=== PATIENT | female | born 1980 | race Caucasian/White ===

== ENCOUNTER → 2016-12-08 | Outpatient (REF) | payer OTHER ==
[~2016-12-08] MED LIST: KLON1TAB PO; LYRI75CA PO; OMEP20CA3 PO; SYNT75TA PO; ULTR50TA PO; WELL100T PO; XANA1TAB2 PO; ZOLOFT PO
== END ==
LOC: M LAB REF 09:28
PROVIDERS: ATTEND Physician Assistant
DX: J02.9 Acute pharyngitis, unspecified (principal)

== ENCOUNTER → 2017-03-20 | Outpatient (REF) | payer OTHER ==
[2017-03-20 14:33] LABS: FOLLICLE STIMULATING HORMONE 4.6 mIU/mL; LUTEINIZING HORMONE 3.5 mIU/mL
== END ==
LOC: M LAB REF 13:26
PROVIDERS: ATTEND Obstetrics & Gynecology
DX: N92.0 Excessive and frequent menstruation with regular cycle (principal)

== ENCOUNTER → 2017-03-25 | Outpatient (REF) | payer OTHER ==
[2017-03-25 18:16] LABS: BASO % 0.8 % (0.0-1.0); EOS # 0.1 K/mm3 (0.0-0.50); LARGE UNSTAINED CELL # 0.1 K/mm3 (0.0-0.4); LARGE UNSTAINED CELL % 2.1 % (0.0-4.0); LYMPH # 1.6 K/mm3 (1.5-4.5); LYMPH % 34.6 % (24.0-44.0); MEAN CORPUSCULAR HEMOGLOBIN 29.9 pg (27.0-33.0); MEAN CORPUSCULAR HGB CONC 33.8 g/dl (32.0-36.5); MEAN CORPUSCULAR VOLUME 88.3 fl (80.0-96.0); MONO # 0.2 K/mm3 (0.0-0.8); MONO % 4.8 % (0.0-5.0); NEUTROPHILS # 2.5 K/mm3 (1.8-7.7); NEUTROPHILS % 55.6 % (36.0-66.0); PLATELET COUNT, AUTOMATED 231 k/mm3 (150-450); RED CELL DISTRIBUTION WIDTH 12.8 % (11.5-14.5); WHITE BLOOD COUNT 4.6 K/mm3 (4.0-10.0)
== END ==
LOC: M LAB REF 17:15
PROVIDERS: ATTEND Obstetrics & Gynecology
DX: N92.0 Excessive and frequent menstruation with regular cycle (principal)

== ENCOUNTER → 2017-03-28 | Outpatient (CLI) | payer OTHER ==
[2017-03-28 19:48] LABS: ALBUMIN/GLOBULIN RATIO 1.33 (1.00-1.93); ALKALINE PHOSPHATASE 59 U/L (45-117); ALT/SGPT 24 U/L (12-78); ANION GAP 5 MEQ/L (8-16); AST/SGOT 12 U/L (15-37); BILIRUBIN,TOTAL 0.6 MG/DL (0.2-1.0); BLOOD UREA NITROGEN 9 MG/DL (7-18); CALCIUM LEVEL 8.9 MG/DL (8.5-10.1); CARBON DIOXIDE LEVEL 31 MEQ/L (21-32); CHLORIDE LEVEL 105 MEQ/L (98-107); CREATININE FOR GFR 0.93 MG/DL (0.55-1.02); FREE T4 1.05 NG/DL (0.76-1.46); GLOMERULAR FILTRATION RATE > 60.0 (>60); GLUCOSE, FASTING 70 MG/DL (70-105); PERCENT SATURATION 30.9 % (13.2-37.4); POTASSIUM SERUM 4.1 MEQ/L (3.5-5.1); SODIUM LEVEL 141 MEQ/L (136-145); TOTAL IRON BINDING CAPACITY 411 UG/DL (250-450)
[2017-03-28 20:58] LABS: MEAN CORPUSCULAR HEMOGLOBIN 30.5 pg (27.0-33.0); MEAN CORPUSCULAR HGB CONC 33.9 g/dl (32.0-36.5); MEAN CORPUSCULAR VOLUME 89.8 fl (80.0-96.0); WHITE BLOOD COUNT 3.9 K/mm3 (4.0-10.0)
[2017-03-28 22:06] LABS: BASOPHILS 2 % (0-4); EOSINOPHILS 1 % (0-5)
== END ==
LOC: M WUC 17:47
PROVIDERS: ATTEND Physician Assistant
DX: R53.1 Weakness (principal); R53.83 Other fatigue; J02.9 Acute pharyngitis, unspecified

== ENCOUNTER → 2017-05-19 | Outpatient (REF) | payer OTHER ==
[~2017-05-19] MED LIST changes: +LEVO112T2; +MONT10TA2
== END ==
LOC: M LAB REF 18:12
PROVIDERS: ATTEND Obstetrics & Gynecology
DX: R10.2 Pelvic and perineal pain (principal)

== ENCOUNTER 2017-07-18 11:39 | Emergency (ER) | payer OTHER ==
[~2017-07-18] VITALS: Ht 172.7 cm; Wt 74.5 kg
[~2017-07-18 11:39] MED LIST changes: -LEVO112T2; -MONT10TA2
[2017-07-18] MEDS ORDERED: MONT10TA2 (11:51)
[2017-07-18] MEDS ORDERED: LEVO112T2 (11:51)
[2017-07-18] MEDS ORDERED: ONDANSETRON 4MG/2ML VIAL (J2405) IV ONE (12:00)
[2017-07-18] MEDS ORDERED: MORPHINE 4 MG/ML 1ML SYRINGE IV ONE (12:00)
[2017-07-18] MEDS ORDERED: ISOVUE-370 76% 100ML VIAL (Q9967) As Ordered ONE (12:07)
[2017-07-18 13:39] VITALS: BP 128/87
--- NOTE | 2017-07-18 14:16 | REP ---
Clinical: Trauma. Technique: Axial contrast enhanced images from the lung bases to the pubic symphysis using 100 ml Isovue 370 intravenous contrast material with coronal and sagittal re-formations. Comparison: 01/11/2015. Findings: Lung bases are clear. Visualized heart and pericardium normal. No evidence for solid organ injury. Liver, spleen, pancreas, gallbladder, bilateral adrenal glands and kidneys are normal. The enteric system is without obstruction or obvious acute inflammatory process. Normal terminal ileum and appendix identified in the right lower quadrant. Pelvis demonstrates normal bladder and age-appropriate uterus/adnexa with IUD in satisfactory position. No significant pelvic fluid or ascites. No free air. Abdominal aorta and vasculature is normal and without evidence for injury. Musculoskeletal structures are intact. Impression: Normal contrast enhanced CT of the abdomen and pelvis. No evidence for acute pathology or trauma/injury. Signed by Vinicio Villa MD 07/18/2017 12:26 P
--- NOTE | 2017-07-18 14:16 | REP ---
Trauma. Technique: Axial contrast enhanced images from the thoracic inlet to the upper abdomen using 100 ml Isovue 370 intravenous contrast material with coronal and sagittal re-formations. Findings: The bilateral lung parson are well-aerated, symmetric, and clear. No consolidation/contusion, pleural effusion or pneumothorax. Tracheobronchial tree is patent. No adenopathy. Mediastinum demonstrates a normal thoracic aorta, pulmonary vasculature and heart/pericardium. No evidence for mediastinal injury. Surrounding musculoskeletal structures are intact and without evidence for trauma/injury. Impression: Normal contrast enhanced chest CT. No evidence for acute mediastinal or pleural parenchymal trauma/injury or pathology. Signed by Vinicio Villa MD 07/18/2017 12:31 P
--- NOTE | 2017-07-18 14:44 | REP ---
CT THORACIC SPINE WITHOUT CONTRAST: 07/18/2017. COMPARISON: x-ray 11/12 2014, chest x-ray 08/08/2016. CLINICAL HISTORY: Trauma. Back pain. TECHNIQUE: Axial thin-section images with coronal and sagittal reconstructions provided. FINDINGS: The coronal images demonstrate a dextroconvex curvature of the mid-thoracic spine. There is no exaggerated kyphosis on the sagittal reconstruction. Spinous processes, lamina, facets, transverse processes, posterior rib articulations are normal on both sides. No paraspinal hematomas. Lung parson show no evidence of pleural effusions or focal pleural thickening. The posterior ribs are unremarkable. There are small marginal osteophytes at several levels. There is no disc bulge herniation and no spinal or foraminal stenosis. No compression deformities. A few tiny osteophytes are seen which are normal for age. IMPRESSION: 1. No CT evidence of compression fracture, disc space narrowing or malalignment. The central canal is without significant stenosis and the posterior elements are intact. Posterior rib reticulations also intact. Lung parson visible are clear. No effusion or paraspinal abnormality. Signed by Juan Miguel Iglesias MD 07/18/2017 04:01 P
== END 2017-07-18 13:40 | disposition home or self-care (01) ==
LOC: M ED 11:39
DX: Z04.1 Encounter for examination and observation following transport accident (principal); S29.019A Strain of muscle and tendon of unspecified wall of thorax, initial encounter; V99.XXXA Unspecified transport accident, initial encounter; Y92.89 Other specified places as the place of occurrence of the external cause; Y93.89 Activity, other specified; Y99.8 Other external cause status; Z79.899 Other long term (current) drug therapy
CPT/HCPCS: 71260; 72128; 74177; 96374; 96375; 99282; J2405; Q9967

== ENCOUNTER 2017-09-22 08:27 | Outpatient (RCR) | payer SELFPAY ==
[~2017-09-22 08:27] MED LIST changes: +LEVO112T2; +MONT10TA2
== END 2017-10-02 ==
LOC: M OT 08:27
PROVIDERS: ATTEND Physical Medicine & Rehabilitation
DX: Z87.820 Personal history of traumatic brain injury (principal)

== ENCOUNTER → 2017-10-01 | Outpatient (REF) | payer MEDICAID, SELFPAY ==
[2017-10-01 20:41] LABS: FREE T4 2.03 NG/DL (0.76-1.46)
== END ==
LOC: M SFHCADAM 15:04
PROVIDERS: ATTEND Physician Assistant
DX: E03.9 Hypothyroidism, unspecified (principal); R51 Headache

== ENCOUNTER 2017-10-04 00:44 | Emergency (ER) | payer MEDICAID, OTHER, SELFPAY ==
[2017-10-04 00:49] VITALS: BP 139/90
== END 2017-10-04 01:50 | disposition home or self-care (01) ==
LOC: M ED 00:44
DX: Z60.9 Problem related to social environment, unspecified (principal); K21.9 Gastro-esophageal reflux disease without esophagitis; E03.9 Hypothyroidism, unspecified; J30.9 Allergic rhinitis, unspecified; Z79.899 Other long term (current) drug therapy

== ENCOUNTER → 2017-10-17 | Outpatient (CLI) | payer MEDICAID, OTHER ==
--- NOTE | 2017-10-17 18:44 | REP ---
ULTRASOUND LEFT BREAST: Ultrasound left breast performed. The patient complains of painful lumps between 12-o'clock and 3-o'clock in the left breast. At the 1-o'clock region, there is a hypoechoic nodule measuring 9 x 9 x 8 mm. At 2-o'clock there are two hypoechoic nodules measuring 8 x 5 x 6 mm and 6 x 5 x 6 mm. There is also a complex cyst 4 mm in diameter. At 3-o'clock there is dense fibroglandular tissue present. IMPRESSION: ACR 3 probably benign. In the upper outer quadrant of the left breast, there are three well-defined round hypoechoic nodules with smooth margins, maximum diameter of the largest nodule is 9 mm. These most likely represent fibroadenomas. The largest nodule is at 1-o'clock and there are two other smaller nodules at 2-o'clock. Recommend followup ultrasound in 6 months to ensure stability. BI-RADS/ACR category 3 mammogram. Probably benign findings. Initial short-term followup (usually 6 month) examination. The patient letter being requested is M3. Signed by Franck Bobby MD 10/20/2017 05:53 P
== END ==
LOC: M RAD 16:04
PROVIDERS: ATTEND Physician Assistant
DX: N63.0 Unspecified lump in unspecified breast (principal)

== ENCOUNTER → 2017-11-24 | Outpatient (CLI) | payer OTHER ==
[~2017-11-24] MED LIST changes: +GASTROGRAFIN SOLUTION 30ML (Q9963) As Ordered; +ISOVUE-370 76% 100ML VIAL (Q9967) As Ordered; -KLON1TAB PO; -LEVO112T2; -LYRI75CA PO; -MONT10TA2; -OMEP20CA3 PO; -SYNT75TA PO; -ULTR50TA PO; -WELL100T PO; -XANA1TAB2 PO; -ZOLOFT PO
== END ==
LOC: M RAD 10:00
DX: R59.0 Localized enlarged lymph nodes (principal); C50.919 Malignant neoplasm of unspecified site of unspecified female breast; Z87.820 Personal history of traumatic brain injury
CPT/HCPCS: Q9963

== ENCOUNTER → 2017-11-26 | Outpatient (REF) | payer OTHER ==
[2017-11-26 17:48] LABS: INR 0.99; PROTHROMBIN TIME 13.2 SECONDS (12.4-14.5)
== END ==
LOC: M LAB REF 17:01
DX: C50.412 Malignant neoplasm of upper-outer quadrant of left female breast (principal)

== ENCOUNTER → 2017-11-28 | Outpatient (CLI) | payer OTHER | LOC: M CARPUL 11:59 | DX: Z29.8 Encounter for other specified prophylactic measures (principal); C50.919 Malignant neoplasm of unspecified site of unspecified female breast ==

== ENCOUNTER 2017-12-19 13:12 | Day surgery (SDC) | payer OTHER ==
[2017-12-19] MEDS ORDERED: CEFAZOLIN SOD 1 GM in APPROPRIATE DILUENT 1 EA IV (13:45)
[2017-12-19 13:52] LABS: CONTROL LINE UCG INT CTR LINE PRESENT; URINE PREG TEST NEGATIVE (NEGATIVE)
[2017-12-19] MEDS: LR 1,000 ML IV (13:57)
[2017-12-19] MEDS ORDERED: BUPIVACAINE HCL 0.25% 30 ML VIAL As Ordered (14:05)
[2017-12-19] MEDS ORDERED: LIDOCAINE 1% SDV INJ 30 ML VIAL As Ordered (14:05)
[2017-12-19] MEDS ORDERED: HEPARIN SOD (PORCINE) 5000 UNITS/ML VIAL As Ordered (14:06)
[2017-12-19] MEDS ORDERED: PROPOFOL 200 MG/20 ML VIAL As Ordered ×3 (14:37→15:01)
[2017-12-19] MEDS ORDERED: MIDAZOLAM INJ 2 MG/2 ML VIAL (J2250) As Ordered (14:37)
[2017-12-19] MEDS ORDERED: fentaNYL 100 MCG/2 ML INJECTION (J3010) As Ordered (14:37)
[2017-12-19] MEDS ORDERED: PERCOCET 5MG/325MG TAB PO (15:30)
[2017-12-19] MEDS ORDERED: fentaNYL 100 MCG/2 ML INJECTION (J3010) IV (15:30)
[2017-12-19] MEDS ORDERED: LR 1,000 ML IV (15:30)
[2017-12-19] MEDS ORDERED: ONDANSETRON 4MG/2ML VIAL (J2405) IV (15:30)
== END 2017-12-19 16:01 | disposition home or self-care (01) ==
LOC: M SDC 16:01
DX: Z45.2 Encounter for adjustment and management of vascular access device (principal); C50.912 Malignant neoplasm of unspecified site of left female breast; E03.9 Hypothyroidism, unspecified; F32.9 Major depressive disorder, single episode, unspecified; F41.9 Anxiety disorder, unspecified; K21.9 Gastro-esophageal reflux disease without esophagitis; Z72.0 Tobacco use; Z79.899 Other long term (current) drug therapy; Z79.891 Long term (current) use of opiate analgesic
CPT/HCPCS: 36561

== ENCOUNTER → 2018-01-07 | Outpatient (CLI) | payer OTHER | LOC: M RAD 11:15 | DX: C50.912 Malignant neoplasm of unspecified site of left female breast (principal); C50.911 Malignant neoplasm of unspecified site of right female breast; R22.1 Localized swelling, mass and lump, neck | CPT/HCPCS: 76536 ==

== ENCOUNTER → 2018-01-12 | Outpatient (REF) | payer OTHER ==
[2018-01-12 14:36] LABS: FERRITIN 49 NG/ML (8-252); IRON (FE) 65 UG/DL (50-170); PERCENT SATURATION 17.6 % (13.2-45.0); TOTAL IRON BINDING CAPACITY 369 UG/DL (250-450)
== END ==
LOC: M LAB REF 13:46
DX: C50.919 Malignant neoplasm of unspecified site of unspecified female breast (principal)

== ENCOUNTER → 2018-02-23 | Outpatient (REF) | payer OTHER ==
[2018-02-23 14:13] LABS: FREE T4 0.87 NG/DL (0.76-1.46); THYROID STIMULATING HORMONE 0.953 uIU/ML (0.358-3.740)
== END ==
LOC: M LAB REF 13:14
DX: E07.9 Disorder of thyroid, unspecified (principal)
CPT/HCPCS: 84443

== ENCOUNTER → 2018-02-24 | Outpatient (CLI) | payer OTHER | LOC: M ONCR 09:16 | DX: C50.912 Malignant neoplasm of unspecified site of left female breast (principal) | CPT/HCPCS: 99201 ==

== ENCOUNTER → 2018-03-09 | Outpatient (CLI) | payer OTHER | LOC: M RAD 14:43 | DX: M79.89 Other specified soft tissue disorders (principal) | CPT/HCPCS: 93971 ==

== ENCOUNTER → 2018-06-01 | Outpatient (CLI) | payer OTHER | LOC: M ONCR 11:17 | DX: C50.412 Malignant neoplasm of upper-outer quadrant of left female breast (principal) | CPT/HCPCS: 99211 ==

== ENCOUNTER → 2018-06-02 | Outpatient (RCR) | payer OTHER | LOC: M PT 10:34 | DX: Z51.89 Encounter for other specified aftercare (principal); C50.912 Malignant neoplasm of unspecified site of left female breast | CPT/HCPCS: 97163 ==

== ENCOUNTER 2018-06-05 11:00 | Outpatient (RCR) | payer OTHER | END 2018-07-03 | LOC: M ONCR 11:00 | DX: C50.412 Malignant neoplasm of upper-outer quadrant of left female breast (principal) | CPT/HCPCS: 77300 ==

== ENCOUNTER → 2018-06-08 | Outpatient (REF) | payer OTHER ==
[2018-06-08 13:45] LABS: FERRITIN 6 NG/ML (8-252); IRON (FE) 17 UG/DL (50-170); TOTAL IRON BINDING CAPACITY 427 UG/DL (250-450)
== END ==
LOC: M LAB REF 13:14
DX: C50.412 Malignant neoplasm of upper-outer quadrant of left female breast (principal)
CPT/HCPCS: 83550

== ENCOUNTER 2018-07-03 12:29 | Emergency (ER) | payer OTHER | END 2018-07-03 14:11 | disposition home or self-care (01) | LOC: M ED 12:29 | DX: R60.0 Localized edema (principal); C50.919 Malignant neoplasm of unspecified site of unspecified female breast; E03.9 Hypothyroidism, unspecified; Z98.890 Other specified postprocedural states; Z87.891 Personal history of nicotine dependence; Z79.890 Hormone replacement therapy; Z79.899 Other long term (current) drug therapy | CPT/HCPCS: 99283 ==

== ENCOUNTER 2018-07-07 10:18 | Outpatient (RCR) | payer OTHER | END 2018-08-02 | LOC: M ONCR 10:18 | DX: C50.412 Malignant neoplasm of upper-outer quadrant of left female breast (principal) | CPT/HCPCS: 77300 ==

== ENCOUNTER → 2018-07-09 | Outpatient (CLI) | payer OTHER ==
[~2018-07-09] MED LIST changes: -GASTROGRAFIN SOLUTION 30ML (Q9963) As Ordered
== END ==
LOC: M RAD 13:43
DX: R06.02 Shortness of breath (principal); R51 Headache; R42 Dizziness and giddiness; C50.919 Malignant neoplasm of unspecified site of unspecified female breast
CPT/HCPCS: Q9967

== ENCOUNTER → 2018-07-14 | Outpatient (CLI) | payer OTHER | LOC: M CARPUL 10:48 | DX: C50.919 Malignant neoplasm of unspecified site of unspecified female breast (principal); R60.1 Generalized edema | CPT/HCPCS: 93306 ==

== ENCOUNTER → 2018-07-15 | Outpatient (CLI) | payer OTHER | LOC: M PAIN 09:00 | DX: M79.2 Neuralgia and neuritis, unspecified (principal); M79.642 Pain in left hand; M79.641 Pain in right hand; G89.29 Other chronic pain; R60.9 Edema, unspecified; Z98.890 Other specified postprocedural states; M54.2 Cervicalgia; M79.1 Myalgia; F32.9 Major depressive disorder, single episode, unspecified; F41.9 Anxiety disorder, unspecified; K21.9 Gastro-esophageal reflux disease without esophagitis; E03.9 Hypothyroidism, unspecified; G47.00 Insomnia, unspecified; Z79.899 Other long term (current) drug therapy; Z90.13 Acquired absence of bilateral breasts and nipples; Z85.3 Personal history of malignant neoplasm of breast; Z92.3 Personal history of irradiation; Z87.891 Personal history of nicotine dependence; Z87.820 Personal history of traumatic brain injury; Z86.69 Personal history of other diseases of the nervous system and sense organs | CPT/HCPCS: G0463 ==

== ENCOUNTER → 2018-07-29 | Outpatient (REF) | payer OTHER ==
[2018-07-29 18:16] LABS: ERYTHROCYTE SEDIMENTATION RATE 15 mm/hr (0-20)
[2018-07-29 18:55] LABS: FREE T4 0.41 NG/DL (0.76-1.46); RHEUMATOID FACTOR QUANT < 10.0 IU/ML (<15.0); TOTAL PROTEIN 6.3 GM/DL (6.4-8.2)
[2018-07-29 20:59] LABS: ESTIMATED AVERAGE GLUCOSE 97 MG/DL (60-110)
[2018-07-29 22:01] LABS: FOLATE 8.3 NG/ML
[2018-07-30 11:32] LABS: ALBUMIN % 58.7 % (55.8-66.1); ALPHA-1-GLOBULIN % 4.8 % (2.9-4.9); ALPHA-2-GLOBULINS 0.74 GM/DL (0.42-0.99); ALPHA-2-GLOBULINS % 11.7 % (7.1-11.8); BETA-1-GLOBULINS 0.42 GM/DL (0.28-0.60); BETA-1-GLOBULINS % 6.7 % (4.7-7.2); BETA-2-GLOBULINS % 4.7 % (3.2-6.5); GAMMA GLOBULIN % 13.4 % (11.1-18.8); GAMMA GLOBULINS 0.84 GM/DL (0.65-1.58)
== END ==
LOC: M LABNEURO 13:41
DX: E11.9 Type 2 diabetes mellitus without complications (principal); E07.9 Disorder of thyroid, unspecified; R20.0 Anesthesia of skin; E53.8 Deficiency of other specified B group vitamins

== ENCOUNTER 2018-07-31 10:46 | Emergency (ER) | payer OTHER ==
[2018-07-31 11:12] LABS: BASO % 0.1 % (0.0-1.0); EOS # 0.1 10^3/uL (0.0-0.50); HEMATOCRIT 39.4 % (36.0-47.0); HEMOGLOBIN 12.2 g/dl (12.0-15.5); IMMATURE GRANULOCYTE % 0.4 % (0-3.0); LYMPH % 2.6 % (24.0-44.0); MEAN CORPUSCULAR HEMOGLOBIN 25.5 pg (27.0-33.0); MEAN CORPUSCULAR VOLUME 82.3 fl (80.0-96.0); MONO # 0.7 10^3/uL (0.0-0.8); MONO % 10.1 % (0.0-5.0); NEUTROPHILS % 85.8 % (36.0-66.0); PLATELET COUNT, AUTOMATED 187 10^3/uL (150-450); RED BLOOD COUNT 4.79 10^6/uL (4.00-5.40); RED CELL DISTRIBUTION WIDTH 19.2 % (11.5-14.5)
[2018-07-31] MEDS: NS 1,000 ML IV ×2 (11:13→13:35)
[2018-07-31] MEDS: MORPHINE 4 MG/ML 1ML VIAL/SYRINGE (J2270) IV ×2 (11:16→12:43)
[2018-07-31] MEDS: ONDANSETRON 4MG/2ML VIAL (J2405) IV (11:16)
[2018-07-31 11:32] LABS: INR 0.88
[2018-07-31] MEDS: PERCOCET 5MG/325MG TAB PO (11:48)
[2018-07-31 11:51] LABS: ALBUMIN 3.7 GM/DL (3.2-5.2); ALBUMIN/GLOBULIN RATIO 1.16 (1.00-1.93); ALKALINE PHOSPHATASE 90 U/L (45-117); ALT/SGPT 17 U/L (12-78); ANION GAP 6 MEQ/L (8-16); AST/SGOT 18 U/L (7-37); BILIRUBIN,DIRECT 0.1 MG/DL (0.0-0.2); BILIRUBIN,TOTAL 0.3 MG/DL (0.2-1.0); BLOOD UREA NITROGEN 12 MG/DL (7-18); CALCIUM LEVEL 9.2 MG/DL (8.5-10.1); CARBON DIOXIDE LEVEL 29 MEQ/L (21-32); CHLORIDE LEVEL 107 MEQ/L (98-107); CPK CREATINE PHOSPHOKINASE 95 U/L (26-192); CREATININE FOR GFR 0.72 MG/DL (0.55-1.30); GLOMERULAR FILTRATION RATE > 60.0 (>60); GLUCOSE, FASTING 102 MG/DL (70-100); LIPASE 46 U/L (73-393); MB/CK RELATIVE INDEX 1.37 (< OR =4); NT-PRO BNP 118 PG/ML (<125); POTASSIUM SERUM 4.1 MEQ/L (3.5-5.1); SODIUM LEVEL 142 MEQ/L (136-145); TOTAL PROTEIN 6.9 GM/DL (6.4-8.2); TROPONIN I < 0.02 NG/ML (< 0.10)
[2018-07-31 12:06] LABS: LYMPH # 0.2 10^3/uL (1.5-4.5); POSITIVE DIFF POS FLAG
[2018-07-31] MEDS ORDERED: ISOVUE-370 76% 100ML VIAL (Q9967) As Ordered (12:22)
[2018-07-31] MEDS: KETOROLAC 30 MG/ML VIAL (J1885) IV (12:45)
[2018-07-31] MEDS: SUCRALFATE SUSP 1GM/10ML UD PO (13:25)
[2018-07-31] MEDS: GI COCKTAIL 50ML BTL(HYOSCYAMINE/MAALOX/LIDOCAINE VISCOUS)(1:3:1) PO (15:29)
== END 2018-07-31 17:38 | disposition home or self-care (01) ==
LOC: M ED 10:46
DX: R07.9 Chest pain, unspecified (principal); R94.31 Abnormal electrocardiogram [ECG] [EKG]; C50.912 Malignant neoplasm of unspecified site of left female breast; K21.9 Gastro-esophageal reflux disease without esophagitis; E07.9 Disorder of thyroid, unspecified; F17.200 Nicotine dependence, unspecified, uncomplicated; Z90.13 Acquired absence of bilateral breasts and nipples; Z98.890 Other specified postprocedural states; Z79.890 Hormone replacement therapy; Z79.899 Other long term (current) drug therapy
CPT/HCPCS: J2270

== ENCOUNTER 2018-08-25 23:18 | Emergency (ER) | payer OTHER ==
[2018-08-26] MEDS: NORCO, ANEXSIA 5/325MG TABLET (HYDROcodone/ACETAMINOPHEN) PO (00:22)
[2018-08-26 00:35] LABS: BASO % 0.6 % (0.0-1.0); EOS # 0.2 10^3/uL (0.0-0.50); EOS % 3.1 % (0.0-3.0); HEMATOCRIT 39.9 % (36.0-47.0); HEMOGLOBIN 12.7 g/dl (12.0-15.5); IMMATURE GRANULOCYTE % 0.3 % (0-3.0); LYMPH # 0.9 10^3/uL (1.5-4.5); LYMPH % 12.8 % (24.0-44.0); MEAN CORPUSCULAR HEMOGLOBIN 26.1 pg (27.0-33.0); MEAN CORPUSCULAR HGB CONC 31.8 g/dl (32.0-36.5); MEAN CORPUSCULAR VOLUME 82.1 fl (80.0-96.0); MONO # 0.6 10^3/uL (0.0-0.8); NEUTROPHILS # 5.4 10^3/uL (1.8-7.7); NEUTROPHILS % 75.2 % (36.0-66.0); PLATELET COUNT, AUTOMATED 198 10^3/uL (150-450); RED BLOOD COUNT 4.86 10^6/uL (4.00-5.40); WHITE BLOOD COUNT 7.2 10^3/uL (4.0-10.0)
[2018-08-26 00:49] LABS: APPEARANCE, URINE CLEAR (CLEAR); BACTERIA, URINE AUTO NEGATIVE (NEGATIVE); BILIRUBIN, URINE AUTO NEGATIVE (NEGATIVE); BLOOD, URINE BLOOD NEGATIVE (NEGATIVE); COLOR, URINE YELLOW (YELLOW); GLUCOSE, URINE (UA) AUTO NEGATIVE (NEGATIVE); KETONE, URINE AUTO NEGATIVE (NEGATIVE); LEUKOCYTE ESTERASE, URINE AUTO NEGATIVE (NEGATIVE); MUCUS, URINE SMALL (NEGATIVE); NITRITE, URINE AUTO NEGATIVE (NEGATIVE); PROTEIN, URINE AUTO NEGATIVE (NEGATIVE); RBC, URINE AUTO 1 /HPF (0-3); SPECIFIC GRAVITY URINE AUTO 1.014 (1.002-1.035); SQUAMOUS EPITHELIAL CELL UR AU 3 /HPF (0-6); UROBILINOGEN, URINE AUTO 0.2 mg/dL (0.0-2.0); WBC, URINE AUTO 3 /HPF (0-3)
[2018-08-26 00:56] LABS: ANION GAP 9 MEQ/L (8-16); BLOOD UREA NITROGEN 13 MG/DL (7-18); CALCIUM LEVEL 8.7 MG/DL (8.5-10.1); CARBON DIOXIDE LEVEL 27 MEQ/L (21-32); CHLORIDE LEVEL 101 MEQ/L (98-107); CREATININE FOR GFR 0.81 MG/DL (0.55-1.30); GLOMERULAR FILTRATION RATE > 60.0 (>60); GLUCOSE, FASTING 93 MG/DL (70-100); POTASSIUM SERUM 4.2 MEQ/L (3.5-5.1); SODIUM LEVEL 137 MEQ/L (136-145)
[2018-08-26] MEDS: NORCO 5/325MG TABLET (BULK FOR ED) PO (01:19)
== END 2018-08-26 01:27 | disposition home or self-care (01) ==
LOC: M ED 23:18
DX: R59.1 Generalized enlarged lymph nodes (principal); Z92.3 Personal history of irradiation; K21.9 Gastro-esophageal reflux disease without esophagitis; Z85.3 Personal history of malignant neoplasm of breast; Z79.899 Other long term (current) drug therapy
CPT/HCPCS: 80048

== ENCOUNTER 2018-09-02 08:20 | Emergency (ER) | payer OTHER ==
[2018-09-02] MEDS: NS 1,000 ML IV (09:04)
[2018-09-02 09:17] LABS: KETONE, URINE AUTO RFX NEGATIVE (NEGATIVE); LEUKOCYTE ESTERASE UR AUTO RFX NEGATIVE (NEGATIVE); MUCUS, URINE RFX SMALL (NEGATIVE); NITRITE, URINE AUTO RFX NEGATIVE (NEGATIVE); RBC, URINE AUTO RFX 0 /HPF (0-3); SPECIFIC GRAVITY UR AUTO RFX 1.023 (1.002-1.035); SQUAM EPITHELIAL CELL UR AURFX 3 /HPF (0-6); WBC, URINE AUTO RFX 0 /HPF (0-3)
[2018-09-02 09:18] LABS: BASO % 0.9 % (0.0-1.0); EOS # 0.2 10^3/uL (0.0-0.50); EOS % 6.5 % (0.0-3.0); HEMATOCRIT 35.1 % (36.0-47.0); HEMOGLOBIN 11.3 g/dl (12.0-15.5); IMMATURE GRANULOCYTE % 0.3 % (0-3.0); LYMPH # 0.9 10^3/uL (1.5-4.5); LYMPH % 26.9 % (24.0-44.0); MEAN CORPUSCULAR HGB CONC 32.2 g/dl (32.0-36.5); MEAN CORPUSCULAR VOLUME 80.9 fl (80.0-96.0); MONO # 0.5 10^3/uL (0.0-0.8); MONO % 13.3 % (0.0-5.0); NEUTROPHILS # 1.8 10^3/uL (1.8-7.7); NEUTROPHILS % 52.1 % (36.0-66.0); PLATELET COUNT, AUTOMATED 284 10^3/uL (150-450); RED BLOOD COUNT 4.34 10^6/uL (4.00-5.40); RED CELL DISTRIBUTION WIDTH 17.2 % (11.5-14.5); WHITE BLOOD COUNT 3.4 10^3/uL (4.0-10.0)
[2018-09-02 09:39] LABS: ANION GAP 5 MEQ/L (8-16); BLOOD UREA NITROGEN 14 MG/DL (7-18); C REACTIVE PROTEIN QUANTITATIV 2.45 MG/DL (0.00-0.30); CALCIUM LEVEL 8.9 MG/DL (8.5-10.1); CARBON DIOXIDE LEVEL 29 MEQ/L (21-32); CHLORIDE LEVEL 104 MEQ/L (98-107); CREATININE FOR GFR 0.62 MG/DL (0.55-1.30); GLOMERULAR FILTRATION RATE > 60.0 (>60); GLUCOSE, FASTING 81 MG/DL (70-100); POTASSIUM SERUM 4.1 MEQ/L (3.5-5.1); SODIUM LEVEL 138 MEQ/L (136-145)
[2018-09-02 09:52] LABS: ERYTHROCYTE SEDIMENTATION RATE 56 mm/hr (0-20)
[2018-09-02 10:34] LABS: CK-MB VALUE MASS < 1.0 NG/ML (<3.6); CPK CREATINE PHOSPHOKINASE 31 U/L (26-192); MB/CK RELATIVE INDEX 3.23 (< OR =4); NT-PRO BNP 57 PG/ML (<125); TROPONIN I < 0.02 NG/ML (< 0.10)
[2018-09-02 10:46] LABS: D-DIMER QUANT 828.4 ng/ml (<500)
[2018-09-02] MEDS ORDERED: ISOVUE-370 76% 100ML VIAL (Q9967) As Ordered (11:06)
[2018-09-02 11:24] LABS: INFLUENZA A AMPLIFICATION NEGATIVE (NEGATIVE); INFLUENZA B AMPLIFICATION NEGATIVE (NEGATIVE); RSV AMPLIFICATION NEGATIVE (NEGATIVE)
[2018-09-02] MEDS: PERCOCET 5MG/325MG TAB PO (11:56)
== END 2018-09-02 12:35 | disposition home or self-care (01) ==
LOC: M ED 08:20
DX: R06.02 Shortness of breath (principal); R59.0 Localized enlarged lymph nodes; R94.31 Abnormal electrocardiogram [ECG] [EKG]; E03.9 Hypothyroidism, unspecified; F41.9 Anxiety disorder, unspecified; K21.9 Gastro-esophageal reflux disease without esophagitis; Z85.3 Personal history of malignant neoplasm of breast; Z98.890 Other specified postprocedural states; Z92.3 Personal history of irradiation; Z79.890 Hormone replacement therapy; Z79.899 Other long term (current) drug therapy
CPT/HCPCS: Q9967

== ENCOUNTER → 2018-09-02 | Outpatient (CLI) | payer OTHER | LOC: M ONCR 14:03 | DX: C50.412 Malignant neoplasm of upper-outer quadrant of left female breast (principal) | CPT/HCPCS: 99211 ==

== ENCOUNTER 2018-10-20 15:23 | Emergency (ER) | payer OTHER ==
[2018-10-20] MEDS: ACETAMINOPHEN TAB 650MG DOSE (2X325MG) PO (17:55)
== END 2018-10-20 18:15 | disposition left against medical advice (07) ==
LOC: M ED 15:23
DX: N64.59 Other signs and symptoms in breast (principal); R06.00 Dyspnea, unspecified; F41.9 Anxiety disorder, unspecified; Z85.3 Personal history of malignant neoplasm of breast; Z87.820 Personal history of traumatic brain injury; Z79.899 Other long term (current) drug therapy
CPT/HCPCS: 99284

== ENCOUNTER → 2018-10-20 | Outpatient (CLI) | payer OTHER ==
[~2018-10-20] MED LIST changes: +ALLE10TA2 PO; +AMBI10TA PO; +BUPR-289; +CLON1TAB8 PO; +CVS20TAB PO; +DULO1CAP3; +FERR1TAB8 PO; +FURO20TA2 PO; -ISOVUE-370 76% 100ML VIAL (Q9967) As Ordered; +KLON1TAB PO; +LASI20TA PO; +LEVO112T2 PO; +LYRI75CA PO; +MAGN400T2; +METHACHOLINE KIT (J7674) INH ONE; +MONT10TA2 PO; +MORP15TA2 PO; +NORCOTAB PO; +OMEP20CA3 PO; +PERC5TAB12 PO; +PROC10TA4 PO; +SUCR1SS PO; +SYNT75TA PO; +ULTR50TA PO; +VYVA1CAP PO; +VYVA20CA PO; +WELL100T PO; +XANA1TAB2 PO; +ZOLOFT PO
--- NOTE | 2018-10-20 15:13 | PFTRPT ---
Height: 68.00 Inches Weight: 168.00 Lbs BSA: 1.90 Diagnosis: R06.02 DATE OF PROCEDURE: 10/20/2018 ORDERING PROVIDER: Dr. Gordon INTERPRETATION: Study of excellent technical quality. Under protocol, methacholine was administered. At a dose of 2.5 mg or 13.875 CDUs, a 45% decline in the FEV1 was noted. PC of 0.52 is significant. Flow rates did return to baseline post bronchodilator administration. IMPRESSION: Positive methacholine challenge study. MTDD
== END ==
LOC: M CARPUL 12:30
PROVIDERS: ATTEND Internal Medicine Pulmonary Disease
DX: R06.02 Shortness of breath (principal)
CPT/HCPCS: 94070; 95070; J7674

== ENCOUNTER 2018-10-22 12:16 | Emergency (ER) | payer OTHER ==
[~2018-10-22] VITALS: Ht 172.7 cm; Wt 74.5 kg
[~2018-10-22 12:16] MED LIST changes: -CVS20TAB PO; -METHACHOLINE KIT (J7674) INH ONE
[2018-10-22 14:51] LABS: ABG BASE EXCESS 1.7 (-2.0-2.0); ABG HCO3 24.5 MEQ/L (22.0-26.0); ABG O2 SATURATION 97.3 % (95.0-99.0); ABG PARTIAL PRESSURE CO2 32.6 mmHg (35.0-45.0); ABG PARTIAL PRESSURE O2 88.9 mmHg (75.0-100.0); ABG TOTAL CO2 25.5 MEQ/L (22.0-29.0); ABG pH (ARTERIAL) 7.493 UNITS (7.350-7.450)
[2018-10-22 14:53] LABS: BASO % 0.4 % (0.0-1.0); EOS # 0.1 10^3/uL (0.0-0.50); EOS % 1.9 % (0.0-3.0); HEMATOCRIT 37.1 % (36.0-47.0); HEMOGLOBIN 12.4 g/dl (12.0-15.5); LYMPH # 0.8 10^3/uL (1.5-4.5); LYMPH % 17.3 % (24.0-44.0); MEAN CORPUSCULAR HEMOGLOBIN 28.5 pg (27.0-33.0); MEAN CORPUSCULAR HGB CONC 33.4 g/dl (32.0-36.5); MEAN CORPUSCULAR VOLUME 85.3 fl (80.0-96.0); MONO # 0.5 10^3/uL (0.0-0.8); MONO % 9.5 % (0.0-5.0); NEUTROPHILS # 3.3 10^3/uL (1.8-7.7); NEUTROPHILS % 70.5 % (36.0-66.0); PLATELET COUNT, AUTOMATED 239 10^3/uL (150-450); RED BLOOD COUNT 4.35 10^6/uL (4.00-5.40); WHITE BLOOD COUNT 4.7 10^3/uL (4.0-10.0)
[2018-10-22 15:05] LABS: INR 0.98; PARTIAL THROMBOPLASTIN TIME 27.3 SECONDS (25.4-37.6); PROTHROMBIN TIME 13.1 SECONDS (12.1-14.4)
[2018-10-22 15:14] LABS: HCG, SERUM QUALITATIVE NEGATIVE (NEGATIVE)
[2018-10-22] MEDS ORDERED: dexameTHASONE 20 MG/5 ML VIAL (J1100) IV ONE (15:15)
[2018-10-22 15:24] LABS: BLOOD UREA NITROGEN 13 MG/DL (7-18); CALCIUM LEVEL 8.2 MG/DL (8.5-10.1); CARBON DIOXIDE LEVEL 27 MEQ/L (21-32); CHLORIDE LEVEL 103 MEQ/L (98-107); CK-MB VALUE MASS < 1.0 NG/ML (<3.6); CPK CREATINE PHOSPHOKINASE 51 U/L (26-192); GLOMERULAR FILTRATION RATE > 60.0 (>60); GLUCOSE, FASTING 74 MG/DL (70-100); MB/CK RELATIVE INDEX 1.96 (< OR =4); NT-PRO BNP 83 PG/ML (<125); POTASSIUM SERUM 3.4 MEQ/L (3.5-5.1); SODIUM LEVEL 139 MEQ/L (136-145); TROPONIN I < 0.02 NG/ML (< 0.10)
[2018-10-22] MEDS ORDERED: ISOVUE-370 76% 100ML VIAL (Q9967) As Ordered ONE (15:29)
--- NOTE | 2018-10-22 16:10 | REP ---
Chest two views HISTORY: Chest pain Comparison: 09/02/2018 The lungs are clear. The heart is normal in size. The pulmonary vasculature is normal in appearance. The bony structure is intact. IMPRESSION: No acute disease. Electronically Signed by Leo Peralta MD 10/22/2018 04:02 P
[2018-10-22] MEDS ORDERED: PERCOCET 5MG/325MG TAB PO ONE (16:15)
[2018-10-22 17:00] VITALS: BP 103/64
--- NOTE | 2018-10-22 18:08 | REP ---
REASON FOR EXAM: Persistent dyspnea. Multiple priors are reviewed. The latest 09/02/2018. CONTRAST: 75 mL Isovue-370. There is excellent visualization of the pulmonary arterial vasculature. There are no focal filling defects present that would be considered consistent with pulmonary emboli. The thoracic aorta is normal. There is no mediastinal or hilar adenopathy. There are pleural or pericardial effusions. The imaged upper abdomen is within normal limits. The imaged osseous structures are within normal limits. Evaluation of the lung parson show no new abnormal nodules, masses or opacities. The lung parson are stable. IMPRESSION:No significant change from 09/02/2018. No evidence of a pulmonary embolism. No evidence of acute disease. Electronically Signed by Cody Jones DO 10/23/2018 11:45 A
[2018-10-23] MEDS ORDERED: CVS20TAB PO (08:30)
--- NOTE | 2018-10-24 10:36 | ECGEPIP ---
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
== END 2018-10-22 17:26 | disposition home or self-care (01) ==
LOC: EDBD 12:16 → M ED 12:16
DX: J45.909 Unspecified asthma, uncomplicated (principal); I50.9 Heart failure, unspecified; Z79.899 Other long term (current) drug therapy
CPT/HCPCS: 36600; 71046; 71275; 80048; 82550; 82553; 82803; 83880; 84443; 84703; 85025; 85610; 85730; 93005; 93041; 94760; 96374; 99284; J1100; Q9967

== ENCOUNTER → 2018-10-30 | Outpatient (CLI) | payer OTHER ==
[~2018-10-30] MED LIST changes: +CVS20TAB PO; -LASI20TA PO; +LASI20TA3 PO
--- NOTE | 2018-10-30 10:58 | REP ---
Clinical: Left axillary tenderness with history of breast cancer. Technique: Real time guzmán scale and color evaluation using linear high frequency transducer. Findings: Directed ultrasound examination of the left axillary region at the area of maximal tenderness demonstrates normal musculature and subcutaneous tissues. No fluid collection, adenopathy, or mass lesion appreciated. Impression: Negative directed ultrasound examination. No obvious axillary abnormality by sonographic evaluation. Electronically Signed by Vinicio Villa MD 10/30/2018 10:50 A
== END ==
LOC: M RAD 09:51
PROVIDERS: ATTEND Internal Medicine Medical Oncology
DX: R06.02 Shortness of breath (principal); I50.30 Unspecified diastolic (congestive) heart failure; Z85.3 Personal history of malignant neoplasm of breast

== ENCOUNTER 2018-12-04 04:46 | Emergency (ER) | payer OTHER ==
[~2018-12-04] VITALS: Ht 172.7 cm; Wt 75.0 kg
[~2018-12-04 04:46] MED LIST changes: +OXYC1TAB23 PO
[2018-12-04] MEDS ORDERED: NS 1,000 ML IV ONE (06:00)
[2018-12-04] MEDS ORDERED: HYDROMORPHONE HCL 0.5 MG/ 0.5 ML SYRINGE (J1170 PER 1) IV ONE (06:00)
[2018-12-04] MEDS ORDERED: ISOVUE-370 76% 100ML VIAL (Q9967) As Ordered ONE (06:04)
[2018-12-04 06:31] LABS: BASO % 0.8 % (0.0-1.0); EOS # 0.1 10^3/uL (0.0-0.50); EOS % 3.6 % (0.0-3.0); HEMATOCRIT 36.9 % (36.0-47.0); HEMOGLOBIN 11.8 g/dl (12.0-15.5); LYMPH # 0.7 10^3/uL (1.5-4.5); MEAN CORPUSCULAR HEMOGLOBIN 28.8 pg (27.0-33.0); MONO # 0.4 10^3/uL (0.0-0.8); MONO % 11.9 % (0.0-5.0); NEUTROPHILS # 2.4 10^3/uL (1.8-7.7); NEUTROPHILS % 65.4 % (36.0-66.0); PLATELET COUNT, AUTOMATED 202 10^3/uL (150-450); WHITE BLOOD COUNT 3.6 10^3/uL (4.0-10.0)
[2018-12-04 06:58] LABS: BLOOD UREA NITROGEN 20 MG/DL (7-18); CALCIUM LEVEL 7.8 MG/DL (8.5-10.1); CARBON DIOXIDE LEVEL 27 MEQ/L (21-32); CHLORIDE LEVEL 106 MEQ/L (98-107); CREATININE FOR GFR 0.67 MG/DL (0.55-1.30); GLOMERULAR FILTRATION RATE > 60.0 (>60); GLUCOSE, FASTING 84 MG/DL (70-100); POTASSIUM SERUM 4.2 MEQ/L (3.5-5.1); SODIUM LEVEL 139 MEQ/L (136-145)
--- NOTE | 2018-12-04 07:41 | REPVR ---
EXAM: CT Chest With Contrast EXAM DATE/TIME: 12/04/2018 5:54 AM CLINICAL HISTORY: 37 years old, female; Pain; Chest wall pain; Prior surgery; Surgery date: 1-6 months; Surgery type: Breast; Additional info: Eval of l breast implant TECHNIQUE: Axial computed tomography images of the chest with intravenous contrast. All CT scans at this facility use at least one of these dose optimization techniques: automated exposure control; mA and/or kV adjustment per patient size (includes targeted exams where dose is matched to clinical indication); or iterative reconstruction. Coronal and sagittal reformatted images were created and reviewed. MIP reconstructed images were created and reviewed. CONTRAST: 75 ml of iso administered intravenously. COMPARISON: CT ANGIO CHEST 10/22/2018 3:26:50 PM FINDINGS: Lungs: Minor dependent atelectasis is present bilaterally. The lungs are otherwise clear. The central airways appear patent. Pleural space: Normal. No pneumothorax. No pleural effusion. Heart: Normal. No cardiomegaly. No pericardial effusion. Aorta: The thoracic aorta is nonaneurysmal. Lymph nodes: Unremarkable. No enlarged lymph nodes. Bones/joints: Unremarkable. No acute fracture. Soft tissues: There are again surgical clips in the left axilla with some scarring here. Bilateral breast implants are again present. There are low density and probably saline. They have a fairly symmetric appearance, and no significant new collection is evident about either. Stomach and bowel: A tiny right posterior tracheal diverticulum is again present. Upper abdomen: The visualized abdominal structures appear unremarkable. IMPRESSION: Fairly symmetric appearance of bilateral breast implants. These are probably saline. If they are silicone, however, may consider further evaluation with ultrasound or MRI. Electronically signed by: Pedro Pablo Martinez On 12/04/2018 07:41:25 AM
--- NOTE | 2018-12-04 07:49 | REPVR ---
EXAM: US Left Duplex Upper Extremity Veins, Limited EXAM DATE/TIME: 12/04/2018 6:42 AM CLINICAL HISTORY: 37 years old, female; Pain; Arn, upper; Left; Additional info: Swell pain x 2 weeks TECHNIQUE: Real-time Duplex ultrasound of the Left Upper Extremity with 2-D guzmán scale, color Doppler flow and spectral waveform analysis. Limited exam focused on the left upper extremity veins. COMPARISON: None provided. FINDINGS: Left deep veins: Axillary and brachial veins are patent throughout without thrombus. Normal Doppler waveforms. Normal compressibility and/or augmentation response. There is wall thickening of the left axillary vein proximally, with decreased luminal diameter. Visualized internal jugular and subclavian veins are patent. Left superficial veins: Unremarkable. Visualized cephalic and basilic veins are patent without thrombus. Soft tissues: Unremarkable. IMPRESSION: 1. No deep venous thrombus demonstrated in the left upper extremity. 2. Wall thickening of the left axillary vein proximally, with decreased luminal diameter. Findings could relate to scarring or chronic phlebitis in the setting of prior lymph node dissection in the region. Electronically signed by: Pedro Pablo Martinez On 12/04/2018 07:49:13 AM
[2018-12-04 08:38] VITALS: BP 116/62
[2018-12-04] MEDS ORDERED: PERCOCET 5MG/325MG TAB PO ONE (09:00)
--- NOTE | 2018-12-04 11:37 | ED PDOC ---
Post-Departure Follow-Up dr browning faxed formal report of ct chest for fu Lalo Zheng MD Dec 04, 2018 11:37
== END 2018-12-04 09:02 | disposition home or self-care (01) ==
LOC: M ED 04:46
DX: T85.9XXA Unspecified complication of internal prosthetic device, implant and graft, initial encounter (principal); Y76.2 Prosthetic and other implants, materials and accessory obstetric and gynecological devices associated with adverse incidents; Z85.3 Personal history of malignant neoplasm of breast; Z90.13 Acquired absence of bilateral breasts and nipples; Z86.79 Personal history of other diseases of the circulatory system; J45.909 Unspecified asthma, uncomplicated; Z79.899 Other long term (current) drug therapy
CPT/HCPCS: 71260; 80048; 82330; 83605; 85025; 87040; 93971; 96374; 99284; J1170; Q9967

== ENCOUNTER 2018-12-07 08:59 | Emergency (ER) | payer OTHER ==
[~2018-12-07] VITALS: Ht 172.7 cm; Wt 76.4 kg
[2018-12-07] MEDS ORDERED: IBUP-1022 PO (09:18)
[2018-12-07] MEDS ORDERED: VYVA40CA3 (09:18)
[2018-12-07] MEDS ORDERED: PERCOCET 5MG/325MG TAB PO ONE (09:45)
[2018-12-07 10:13] LABS: BASO % 1.3 % (0.0-1.0); EOS # 0.1 10^3/uL (0.0-0.50); EOS % 3.9 % (0.0-3.0); HEMATOCRIT 37.3 % (36.0-47.0); HEMOGLOBIN 12.3 g/dl (12.0-15.5); LYMPH # 0.6 10^3/uL (1.5-4.5); LYMPH % 17.8 % (24.0-44.0); MEAN CORPUSCULAR HEMOGLOBIN 28.7 pg (27.0-33.0); MEAN CORPUSCULAR VOLUME 86.9 fl (80.0-96.0); MONO # 0.3 10^3/uL (0.0-0.8); MONO % 8.7 % (0.0-5.0); NEUTROPHILS # 2.1 10^3/uL (1.8-7.7); PLATELET COUNT, AUTOMATED 230 10^3/uL (150-450); RED BLOOD COUNT 4.29 10^6/uL (4.00-5.40); WHITE BLOOD COUNT 3.1 10^3/uL (4.0-10.0)
[2018-12-07 10:41] LABS: ERYTHROCYTE SEDIMENTATION RATE 13 mm/hr (0-20)
[2018-12-07 10:47] LABS: BLOOD UREA NITROGEN 21 MG/DL (7-18); C REACTIVE PROTEIN QUANTITATIV < 0.30 MG/DL (0.00-0.30); CALCIUM LEVEL 8.3 MG/DL (8.5-10.1); CARBON DIOXIDE LEVEL 28 MEQ/L (21-32); CHLORIDE LEVEL 104 MEQ/L (98-107); CREATININE FOR GFR 0.77 MG/DL (0.55-1.30); GLOMERULAR FILTRATION RATE > 60.0 (>60); GLUCOSE, FASTING 69 MG/DL (70-100); HCG, SERUM QUANTITATIVE < 1.0 MIU/ML; POTASSIUM SERUM 4.1 MEQ/L (3.5-5.1); SODIUM LEVEL 138 MEQ/L (136-145)
[2018-12-07] MEDS ORDERED: ISOVUE-370 76% 100ML VIAL (Q9967) As Ordered ONE (11:03)
[2018-12-07] MEDS ORDERED: MORPHINE 2 MG/ML 1ML SYRINGE (J2270) IV ONE (11:45)
[2018-12-07] MEDS ORDERED: KETOROLAC 30 MG/ML VIAL (J1885) IV ONE (11:45)
[2018-12-07 12:15] VITALS: BP 118/71
--- NOTE | 2018-12-07 12:31 | REP ---
CT pulmonary angiogram: With IV contrast. History: Left chest wall and axillary pain. Status post mastectomy and tissue spinner open end bilaterally. Pericardial effusion. Comparison studies: Comparison study December 04, 2018. Contrast dose: 75 mL of Isovue [address] technique: Helical scanning is acquired and overlapping 1.5 mm and contiguous 3 mm axial images are reformatted. In addition, maximum intensity projection and multiplanar re-formation images are generated in sagittal and coronal imaging projections. CT pulmonary angiographic findings: There is good opacification of the pulmonary arterial tree. There is no CT evidence of pulmonary embolus. Thoracic aorta shows no evidence of aneurysm or dissection. The left vertebral artery is noted to take a direct aortic origin which is a normal variant. There is a granulomatous calcification in the right upper lobe anteriorly. No significant pulmonary nodule is appreciated. No infiltrate is observed. There is no evidence of pleural effusion on either side. No pericardial effusion is appreciated. The patient is status post mastectomy and bilateral subpectoral saline tissue expanders are noted in place as before. No abnormal fluid collection is seen in the chest wall on either side. There is some postoperative fibrosis with surgical clips in the left axillary soft tissues. No bony destructive lesion is seen. Impression: No CT evidence of pulmonary embolus. Granulomatous calcification right upper lobe. No pleural or pericardial effusion. Surgical clips and some postoperative edema or fibrosis in the left axilla. Status post bilateral mastectomy with bilateral breast augmentation tissue expanders in place. Electronically Signed by Charles Malone MD 12/07/2018 01:56 P
[2018-12-07] MEDS ORDERED: NORCOTAB PO (12:42)
[2019-01-04] MEDS ORDERED: OXYC1TAB23 PO (13:05)
== END 2018-12-07 12:56 | disposition home or self-care (01) ==
LOC: M ED 08:59
DX: G89.18 Other acute postprocedural pain (principal); M79.622 Pain in left upper arm; R07.89 Other chest pain; Z90.13 Acquired absence of bilateral breasts and nipples; Z85.3 Personal history of malignant neoplasm of breast; E03.9 Hypothyroidism, unspecified; D64.9 Anemia, unspecified; K21.9 Gastro-esophageal reflux disease without esophagitis; Z92.3 Personal history of irradiation; Z79.899 Other long term (current) drug therapy
CPT/HCPCS: 71275; 80048; 84702; 85025; 85379; 85652; 86140; 87040; 96374; 96375; 99284; J1885; J2270; Q9967

== ENCOUNTER 2018-12-29 17:35 | Emergency (ER) | payer OTHER ==
[~2018-12-29] VITALS: Ht 172.7 cm; Wt 75.0 kg
[~2018-12-29 17:35] MED LIST changes: -DULO1CAP3; +DULO1CAP3 PO; +IBUP-1022 PO; +VYVA40CA3 PO
[2018-12-29] MEDS ORDERED: TRAM50TA2 (17:43)
[2018-12-29] MEDS ORDERED: CIPR500T39 (17:43)
[2018-12-29] MEDS ORDERED: AMOX/K (17:43)
--- NOTE | 2018-12-29 18:52 | REPVR ---
EXAM: US Duplex Left Upper Extremity Veins, Limited EXAM DATE/TIME: 12/29/2018 6:29 PM CLINICAL HISTORY: 38 years old, female; Pain; Arn, upper; Left; Prior surgery; Surgery date: <1 month; Surgery type: Willian spacer for mastectomy; Additional info: Swelling TECHNIQUE: Real-time Duplex ultrasound of the Left Upper Extremity with 2-D guzmán scale, color Doppler flow and spectral waveform analysis. Limited exam focused on the left upper extremity veins. COMPARISON: US DUPLEX EXT UPPER VEINS UNILATE LEFT 12/04/2018 6:18 AM FINDINGS: Left deep veins: Normal compression and blood flow noted within the left internal jugular vein. Normal phasic flow noted within the proximal subclavian vein.Clot is noted within the axillary vein which is distended and noncompressible. Minimal blood flow was noted around the thrombus on color Doppler examination at the level of thrombosis. Nonocclusive thrombus extends into the basilic vein The brachial veins compressed normally. Left superficial veins: . Visualized cephalic vein is patent without thrombus. Soft tissues: Marked edema noted within the soft tissues of the left arm IMPRESSION: Deep vein thrombosis in the left upper extremity 2. Superficial thrombosis within the left basilic vein Electronically signed by: Milly Krishnan On 12/29/2018 18:52:46 PM
[2018-12-29 19:15] LABS: BASO % 0.8 % (0.0-1.0); EOS # 0.1 10^3/uL (0.0-0.50); EOS % 1.6 % (0.0-3.0); HEMATOCRIT 38.7 % (36.0-47.0); HEMOGLOBIN 12.5 g/dl (12.0-15.5); LYMPH # 0.6 10^3/uL (1.5-4.5); LYMPH % 16.2 % (24.0-44.0); MEAN CORPUSCULAR HEMOGLOBIN 28.2 pg (27.0-33.0); MEAN CORPUSCULAR HGB CONC 32.3 g/dl (32.0-36.5); MEAN CORPUSCULAR VOLUME 87.2 fl (80.0-96.0); MONO # 0.4 10^3/uL (0.0-0.8); MONO % 11.4 % (0.0-5.0); NEUTROPHILS # 2.6 10^3/uL (1.8-7.7); NEUTROPHILS % 69.7 % (36.0-66.0); PLATELET COUNT, AUTOMATED 290 10^3/uL (150-450); RED BLOOD COUNT 4.44 10^6/uL (4.00-5.40); WHITE BLOOD COUNT 3.8 10^3/uL (4.0-10.0)
[2018-12-29] MEDS ORDERED: GABAPENTIN 300 MG CAP PO ONE (19:15)
[2018-12-29] MEDS ORDERED: MORPHINE 4 MG/ML 1ML VIAL/SYRINGE (J2270) IV ONE (19:15)
[2018-12-29 19:24] LABS: INR 0.99; PROTHROMBIN TIME 13.2 SECONDS (12.1-14.4)
[2018-12-29 19:25] LABS: PARTIAL THROMBOPLASTIN TIME 28.1 SECONDS (25.4-37.6)
[2018-12-29 19:27] LABS: BLOOD UREA NITROGEN 10 MG/DL (7-18); C REACTIVE PROTEIN QUANTITATIV 1.16 MG/DL (0.00-0.30); CARBON DIOXIDE LEVEL 28 MEQ/L (21-32); CHLORIDE LEVEL 104 MEQ/L (98-107); CREATININE FOR GFR 0.73 MG/DL (0.55-1.30); GLOMERULAR FILTRATION RATE > 60.0 (>58); GLUCOSE, FASTING 93 MG/DL (70-100); NT-PRO BNP 259 PG/ML (<125); POTASSIUM SERUM 4.2 MEQ/L (3.5-5.1); SODIUM LEVEL 137 MEQ/L (136-145)
[2018-12-29] MEDS ORDERED: PERCOCET 5MG/325MG TAB PO ONE (19:30)
[2018-12-29 19:32] LABS: ERYTHROCYTE SEDIMENTATION RATE 40 mm/hr (0-20)
[2018-12-29] MEDS ORDERED: ISOVUE-370 76% 100ML VIAL (Q9967) As Ordered ONE (19:36)
[2018-12-29 20:03] LABS: HCG, SERUM QUALITATIVE NEGATIVE (NEGATIVE)
[2018-12-29 20:09] LABS: CK-MB VALUE MASS < 1.0 NG/ML (<3.6); CPK CREATINE PHOSPHOKINASE 28 U/L (26-192); MB/CK RELATIVE INDEX 3.57 (< OR =4); TROPONIN I < 0.02 NG/ML (< 0.10)
--- NOTE | 2018-12-29 21:02 | REP ---
Clinical: Acute chest pain with shortness of breath and evidence for DVT. Technique: Axial contrast enhanced images from the thoracic inlet to the upper abdomen using 100 ml Isovue 370 intravenous contrast material with coronal and sagittal re-formations. Findings: Satisfactory enhancement of the pulmonary vasculature is achieved and no filling defects are identified to suggest pulmonary embolus. Thoracic aorta is normal caliber without aneurysm or dissection. Heart and pericardium are normal. Bilateral lung parson demonstrate mild basilar ground-glass opacities suggesting possible bronchitis without discrete focal consolidation or significant atelectasis. Prevascular and bilateral hilar adenopathy is noted and possibly reactive. No nodule or mass lesion. No pleural effusion/reaction. No pneumothorax. Osseous structures are intact. Evidence for bilateral mammoplasty. Impression: 1. No evidence for pulmonary embolus. 2. Mild bibasilar ground-glass opacities raise the possibility of bronchitis. 3. Mediastinal/prevascular and bilateral hilar lymph nodes are nonspecific and possibly reactive. 4. No focal consolidation or effusion. Electronically Signed by Vinicio Villa MD 12/29/2018 08:52 P
[2018-12-29] MEDS ORDERED: PERC5TAB12 PO (21:38)
[2018-12-29] MEDS ORDERED: LASI20TA3 PO (21:38)
[2018-12-29] MEDS ORDERED: ELIQ5TAB PO (21:38)
[2018-12-29 21:45] VITALS: BP 123/72
[2018-12-29] MEDS ORDERED: OXYCODONE/APAP 5MG/325MG(BULK FOR ED) 1 TABLET PO ONE (21:45)
[2018-12-29] MEDS ORDERED: APIXABAN 5 MG TAB (ELIQUIS) PO ONE (21:45)
--- NOTE | 2018-12-30 20:44 | ECGEPIP ---
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
[2019-01-04] MEDS ORDERED: OXYC1TAB23 PO (13:05)
[2019-01-07] MEDS ORDERED: HYDR-3716 PO (10:47)
[2019-01-07] MEDS ORDERED: PREG50CA PO (10:47)
== END 2018-12-29 22:06 | disposition home or self-care (01) ==
LOC: M ED 17:35
DX: I82.622 Acute embolism and thrombosis of deep veins of left upper extremity (principal); I82.612 Acute embolism and thrombosis of superficial veins of left upper extremity; I97.2 Postmastectomy lymphedema syndrome; Z85.3 Personal history of malignant neoplasm of breast; Z90.13 Acquired absence of bilateral breasts and nipples; E03.9 Hypothyroidism, unspecified; Z87.820 Personal history of traumatic brain injury; Z79.899 Other long term (current) drug therapy
CPT/HCPCS: 71275; 80048; 81001; 82550; 82553; 83605; 83880; 84703; 85025; 85610; 85652; 85730; 86140; 87086; 93005; 93041; 93971; 99284; Q9967

== ENCOUNTER → 2019-01-06 | Outpatient (CLI) | payer OTHER ==
[~2019-01-06] MED LIST changes: +AMOX/K; +CIPR500T39; +DULO1CAP3; -DULO1CAP3 PO; +ELIQ5TAB PO; +HYDR-3716 PO; +PREG50CA PO; +TRAM50TA2; +VYVA40CA3; -VYVA40CA3 PO
--- NOTE | 2019-01-07 08:47 | REP ---
PET/CT: History: Restaging metastatic breast cancer. Upper outer quadrant left breast. Status post bilateral mastectomy with reconstruction. Status post chemotherapy completed March of 2018 and radiation therapy completed July of 2018. Most recently status post positive punch biopsy of suspicious skin lesions in the left upper breast positive for metastatic malignancy. Recent left upper extremity documented venous thrombosis. Comparisons: No comparison PET/CT. Comparison is made with most recent chest CT study dated December 29, 2018. TECHNIQUE: 68 minutes following the intravenous injection of a 9.27 mCi dose of F-18 FDG, three-dimensional PET scintigraphy is acquired from the skull base to the proximal thighs. Triplanar noncontrast CT scanning is acquired through the same anatomic range for attenuation correction, and image registration with scan parameters optimized to minimize radiation exposure to the patient. PET scintigraphy and CT datasets were fused and displayed on a workstation with multiplanar and projection display capability. PET/CT Findings: Unfortunately, the PET scintigraphy shows extensive hypermetabolic disease. First, there is ill-defined but extensive intramuscular extrathoracic chest wall hypermetabolic uptake about the left superior chest and subclavicular soft tissues extending in the left axilla and along the left lateral border of the trapezius muscle. This is difficult to evaluate. Some of this may be related to the patient's left upper extremity DVT which was recently diagnosed and associated inflammation. However, much of this hypermetabolic activity is quite avid with maximum standard uptake value up to 9.94. There is associated soft tissue fullness. There is some linear hypermetabolic uptake in the dermal region of the left superior breast and left medial breast. Maximum standard uptake value in this dermal uptake pattern is in the region of 5.92. In addition, there is delia hypermetabolic uptake in the mediastinum and aorticopulmonary window region lymph nodes with maximum standard uptake value here of 11.3. There is hypermetabolic pretracheal, subcarinal, and right hilar and left hilar adenopathy as well. There are small slightly hypermetabolic lymph nodes in the right subclavian region. No hypermetabolic pulmonary parenchymal uptake. There is hypermetabolic retroperitoneal adenopathy with the most avid left periaortic lymph node demonstrating a maximum standard uptake value of 7.86. There is hypermetabolic left iliac adenopathy with small lymph nodes. Maximum SUV value 4.3. There is skeletal muscle uptake which is most likely muscle tension related in several locations including the right forearm and hand and periarticular region of the right shoulder. No abnormal skeletal uptake. No other abnormal hypermetabolic uptake is seen. Impression: Extensive metastatic disease pattern as described above involving left chest wall, left superior breast dermal tissue, bilateral hilar and mediastinal and subclavian adenopathy and retroperitoneal and left iliac lymphadenopathy. Electronically Signed by Charles Malone MD 01/07/2019 09:33 A
== END ==
LOC: M PLARAD 13:32
PROVIDERS: ATTEND Nurse Practitioner Family
DX: C50.412 Malignant neoplasm of upper-outer quadrant of left female breast (principal); Z90.13 Acquired absence of bilateral breasts and nipples; C77.1 Secondary and unspecified malignant neoplasm of intrathoracic lymph nodes; C77.5 Secondary and unspecified malignant neoplasm of intrapelvic lymph nodes; C77.2 Secondary and unspecified malignant neoplasm of intra-abdominal lymph nodes
CPT/HCPCS: 78815; A9552

== ENCOUNTER → 2019-01-08 | Outpatient (CLI) | payer OTHER ==
[~2019-01-08] MED LIST changes: +BUPR15TASR PO; -DULO1CAP3; +DULO1CAP3 PO; -VYVA40CA3; +VYVA40CA3 PO
[2019-01-08 16:13] LABS: PERCENT SATURATION 14.9 % (13.2-45.0)
[2019-01-08 16:19] LABS: FOLATE 9.2 NG/ML (>5.4)
== END ==
LOC: M LAB 13:27
PROVIDERS: ATTEND Internal Medicine Hematology & Oncology
DX: R53.83 Other fatigue (principal); D50.9 Iron deficiency anemia, unspecified

== ENCOUNTER → 2019-01-08 | Outpatient (CLI) | payer OTHER ==
[~2019-01-08] MED LIST changes: +PROHANCE 279.3MG/ML 15ML VIAL (A9576) As Ordered ONE
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
== END ==
LOC: M RAD 12:29
PROVIDERS: ATTEND Nurse Practitioner Family
DX: R51 Headache (principal); C50.919 Malignant neoplasm of unspecified site of unspecified female breast
CPT/HCPCS: 70553; A9576

== ENCOUNTER 2019-01-13 13:00 | Inpatient (IN) | payer OTHER ==
[~2019-01-13] VITALS: Ht 172.7 cm; Wt 80.0 kg
[~2019-01-13 13:00] MED LIST changes: -ALLE10TA2 PO; -BUPR15TASR PO; -CVS20TAB PO; +HYDR-3715 PO; +LORA-753 PO; -NORCOTAB PO; +OMEP20TA9 PO; -PROHANCE 279.3MG/ML 15ML VIAL (A9576) As Ordered ONE
[2019-01-13] MEDS ORDERED: LIDOCAINE 5% (LIDODERM) PATCH TD ONE (13:45)
[2019-01-13] MEDS ORDERED: MORPHINE 4 MG/ML 1ML VIAL/SYRINGE (J2270) IV ONE ×3 (13:45→19:45)
[2019-01-13 14:27] LABS: BASO % 0.7 % (0.0-1.0); EOS # 0.1 10^3/uL (0.0-0.50); EOS % 3.2 % (0.0-3.0); HEMATOCRIT 37.6 % (36.0-47.0); HEMOGLOBIN 12.2 g/dl (12.0-15.5); LYMPH # 0.7 10^3/uL (1.5-4.5); LYMPH % 16.9 % (24.0-44.0); MEAN CORPUSCULAR HEMOGLOBIN 28.4 pg (27.0-33.0); MEAN CORPUSCULAR HGB CONC 32.4 g/dl (32.0-36.5); MEAN CORPUSCULAR VOLUME 87.4 fl (80.0-96.0); MONO # 0.4 10^3/uL (0.0-0.8); NEUTROPHILS # 2.8 10^3/uL (1.8-7.7); PLATELET COUNT, AUTOMATED 319 10^3/uL (150-450)
[2019-01-13 14:40] LABS: INR 1.09; PROTHROMBIN TIME 14.2 SECONDS (12.1-14.4)
[2019-01-13 14:41] LABS: PARTIAL THROMBOPLASTIN TIME 35.1 SECONDS (25.4-37.6)
[2019-01-13 14:51] LABS: BLOOD UREA NITROGEN 13 MG/DL (7-18); CALCIUM LEVEL 8.2 MG/DL (8.5-10.1); CARBON DIOXIDE LEVEL 30 MEQ/L (21-32); CHLORIDE LEVEL 100 MEQ/L (98-107); CREATININE FOR GFR 0.66 MG/DL (0.55-1.30); GLOMERULAR FILTRATION RATE > 60.0 (>58); GLUCOSE, FASTING 76 MG/DL (70-100); POTASSIUM SERUM 4.1 MEQ/L (3.5-5.1); SODIUM LEVEL 136 MEQ/L (136-145)
--- NOTE | 2019-01-13 15:39 | REP ---
LEFT UPPER EXTREMITY DOPPLER VENOUS ULTRASOUND: 01/13/2019. Comparison: 12/29/2018. Clinical history. Prior diagnosis DVT and superficial thrombophlebitis left upper extremity, but symptoms worsening. On anticoagulation, but not improving. Findings: The exam was limited as the technologist states the patient told her she could not move the arm away from her chest due to pain. The jugular and subclavian veins are filled on the color images and without gross evidence of thrombus. There is respiratory variation and augmented flow in these vessels. The axillary vein shows thrombus representing occlusive DVT. The basilic vein also shows some thrombus representing superficial thrombophlebitis. Brachial veins show no thrombus. The cephalic vein also is without thrombus. Impression: 1. There is a segment of the axillary vein with thrombus filling its lumen causing occlusive DVT. There is also superficial thrombophlebitis noted in portions of the basilic vein. 2. The jugular, subclavian and brachial veins show no thrombus and the cephalic vein shows no evidence for superficial thrombophlebitis. Electronically Signed by Juan Miguel Iglesias MD 01/13/2019 09:57 P
[2019-01-13] MEDS ORDERED: HEPARIN DRIP 25,000 UNITS in APPROPRIATE DILUENT 1 EA IV SCH (16:37)
[2019-01-13] MEDS ORDERED: ISOVUE-370 76% 100ML VIAL (Q9967) As Ordered ONE (16:43)
[2019-01-13] MEDS ORDERED: HEPARIN SOD (PORCINE) 5000 UNITS/ML VIAL IV ONE (16:45)
[2019-01-13] MEDS ORDERED: ELIQ5TAB PO (17:04)
[2019-01-13] MEDS ORDERED: BUPR15TASR PO (17:04)
[2019-01-13] MEDS ORDERED: LASI20TA3 PO (17:04)
--- NOTE | 2019-01-13 19:22 | REPVR ---
EXAM: CT Angiography Chest With Contrast EXAM DATE/TIME: 01/13/2019 6:28 PM CLINICAL HISTORY: 38 years old, female; Pain; Chest pain; Prior surgery; Surgery date: 6+ months; Additional info: SOB dvt TECHNIQUE: Axial computed tomographic angiography images of the chest with intravenous contrast using CT angiography protocol. All CT scans at this facility use at least one of these dose optimization techniques: automated exposure control; mA and/or kV adjustment per patient size (includes targeted exams where dose is matched to clinical indication); or iterative reconstruction. Coronal and sagittal reformatted images were created and reviewed. MIP reconstructed images were created and reviewed. CONTRAST: Contrast Material: 75 ml of ISO 370; Contrast Route: IV COMPARISON: CT ANGIO CHEST 12/29/2018 8:21 PM FINDINGS: Pulmonary arteries: No pulmonary embolus. Aorta: No aortic dissection or aneurysm. Lungs: Normal. No consolidation. No masses. Pleural space: Small left pleural effusion. Heart: Normal. No cardiomegaly. No pericardial effusion. Lymph nodes: Superior mediastinal lymphadenopathy measures up to 11 millimeters in the AP window, 10 millimeters in the precarinal region and associated with bilateral hilar lymphadenopathy, left greater than right. Bones/joints: Unremarkable. No acute fracture. Soft tissues: Status post bilateral breast implants. Skin thickening overlies the left breast. Clinical correlation to exclude infection or inflammatory breast carcinoma suggested. Subcutaneous inflammatory changes demonstrated in the soft tissues of the left hemithorax as well as the visualized portion of the left arm. IMPRESSION: 1. Small left pleural effusion. Bibasilar atelectasis. 2. Status post bilateral breast implants. Skin thickening overlies the left breast. Clinical correlation to exclude infection or inflammatory breast carcinoma suggested. 3. No aortic dissection or aneurysm. 4. Superior mediastinal and bilateral hilar lymphadenopathy. Although possibly postinflammatory or neoplastic etiologies not excluded. 5. No pulmonary embolus. 6. Subcutaneous inflammatory changes demonstrated in the soft tissues of the left hemithorax as well as the visualized portion of the left arm. Electronically signed by: Stephen Mckinney On 01/13/2019 19:22:16 PM
[2019-01-13] MEDS ORDERED: **NOTE PATIENT COMMENT** MISC XX SCH (21:00)
--- NOTE | 2019-01-13 21:43 | HPEPDOC ---
General Date of Admission Chief Complaint The patient is a 38-year-old female admitted with a reason for visit of Arm Pain/Swelling. Home Medications Scheduled (Vyvanse) 40 Mg Cap, 40 MG PO DAILY, (Reported) Apixaban Base (Eliquis) 5 Mg Tab, 5 MG PO BID, (Reported) Bupropion HCl (Bupropion HCl Sr) 150 Mg Tab, 150 MG PO DAILY, (Reported) CHECKED WITH PHARMACY - IT IS ONLY DAILY Clonazepam (Clonazepam) 1 Mg Tab, 1 MG PO QHS, (Reported) Duloxetine Hcl (Duloxetine HCl) 60 Mg Cap, 60 MG PO QHS, (Reported) Furosemide (Lasix) 20 Mg Tab, 20 MG PO DAILY, (Reported) Levothyroxine Sodium (Synthroid) 112 Mcg Tab, 112 MCG PO DAILY, (Reported) Omeprazole (Cvs Omeprazole) 20 Mg Tab, 20 MG PO DAILY, (Reported) Zolpidem Tartrate (Ambien) 10 Mg Tab, 10 MG PO QHS, (Reported) Allergies Coded Allergies: No Known Drug Allergy (Verified Allergy, Unknown, 10/20/18) Vital Signs Vital Signs Date Time Temp Pulse Resp B/P (MAP) Pulse Ox O2 Delivery O2 Flow Rate FiO2 01/13/19 20:00 82 18 120/75 (90) 100 Room Air 01/13/19 13:06 97.8 Laboratory Data Labs 24H Laboratory Tests 2 01/13/19 14:14: Immature Granulocyte % (Auto) 0.2, White Blood Count 4.0, Red Blood Count 4.30, Hemoglobin 12.2, Hematocrit 37.6, Mean Corpuscular Volume 87.4, Mean Corpuscular Hemoglobin 28.4, Mean Corpuscular Hemoglobin Concent 32.4, Red Cell Distribution Width 13.1, Platelet Count 319, Neutrophils (%) (Auto) 69.0H, Lymphocytes (%) (Auto) 16.9L, Monocytes (%) (Auto) 10.0H, Eosinophils (%) (Auto) 3.2H, Basophils (%) (Auto) 0.7, Neutrophils # (Auto) 2.8, Lymphocytes # (Auto) 0.7L, Monocytes # (Auto) 0.4, Eosinophils # (Auto) 0.1, Basophils # (Auto) 0.0, Nucleated Red Blood Cells % (auto) 0.0, Prothrombin Time 14.2, Prothromb Time International Ratio 1.09, Activated Partial Thromboplast Time 35.1, Anion Gap 6L, Glomerular Filtration Rate > 60.0, Blood Urea Nitrogen 13, Creatinine 0.66, Sodium Level 136, Potassium Level 4.1, Chloride Level 100, Carbon Dioxide Level 30, Calcium Level 8.2L CBC/BMP Laboratory Tests 01/13/19 14:14 Red Blood Count 4.30, Mean Corpuscular Volume 87.4, Mean Corpuscular Hemoglobin 28.4, Mean Corpuscular Hemoglobin Concent 32.4, Red Cell Distribution Width 13.1, Neutrophils (%) (Auto) 69.0 H, Lymphocytes (%) (Auto) 16.9 L, Monocytes (%) (Auto) 10.0 H, Eosinophils (%) (Auto) 3.2 H, Basophils (%) (Auto) 0.7, Neutrophils # (Auto) 2.8, Lymphocytes # (Auto) 0.7 L, Monocytes # (Auto) 0.4, Eosinophils # (Auto) 0.1, Basophils # (Auto) 0.0, Calcium Level 8.2 L Date of Service The patient was seen on 01/14/19. NOTE NAME: HIRAL GONZALEZ DATE OF : 1980 BUSINESS NUMBER: [id number] AGE: 38 SEX: F REPORT #: [id number] ROOM: ED TECHNOLOGIST: KATIA DOCTOR: WANDA MARQUIS SLIP COVER SEAMSTRESS Ordered for Date&Time: 01/13/19 1637 cc: [~ rep ct ivnm] Service Date&Time: 01/13/19 1828 EXAMINATION REQUESTED: CT ANGIO CHEST REASON FOR PATIENT VISIT: ARM PAIN/SWELLING REASON FOR EXAMINATION: SOB DVT EXAM: CT Angiography Chest With Contrast EXAM DATE/TIME: 01/13/2019 6:28 PM CLINICAL HISTORY: 38 years old, female; Pain; Chest pain; Prior surgery; Surgery date: 6+ months; Additional info: SOB dvt TECHNIQUE: Axial computed tomographic angiography images of the chest with intravenous contrast using CT angiography protocol. All CT scans at this facility use at least one of these dose optimization techniques: automated exposure control; mA and/or kV adjustment per patient size (includes targeted exams where dose is matched to clinical indication); or iterative reconstruction. Coronal and sagittal reformatted images were created and reviewed. MIP reconstructed images were created and reviewed. CONTRAST: Contrast Material: 75 ml of ISO 370; Contrast Route: IV COMPARISON: CT ANGIO CHEST 12/29/2018 8:21 PM FINDINGS: Pulmonary arteries: No pulmonary embolus. Aorta: No aortic dissection or aneurysm. Lungs: Normal. No consolidation. No masses. Pleural space: Small left pleural effusion. Heart: Normal. No cardiomegaly. No pericardial effusion. Lymph nodes: Superior mediastinal lymphadenopathy measures up to 11 millimeters in the AP window, 10 millimeters in the precarinal region and associated with bilateral hilar lymphadenopathy, left greater than right. Bones/joints: Unremarkable. No acute fracture. Soft tissues: Status post bilateral breast implants. Skin thickening overlies the left breast. Clinical correlation to exclude infection or inflammatory breast carcinoma suggested. Subcutaneous inflammatory changes demonstrated in the soft tissues of the left hemithorax as well as the visualized portion of the left arm. IMPRESSION: 1. Small left pleural effusion. Bibasilar atelectasis. 2. Status post bilateral breast implants. Skin thickening overlies the left breast. Clinical correlation to exclude infection or inflammatory breast carcinoma suggested. 3. No aortic dissection or aneurysm. 4. Superior mediastinal and bilateral hilar lymphadenopathy. Although possibly postinflammatory or neoplastic etiologies not excluded. 5. No pulmonary embolus. 6. Subcutaneous inflammatory changes demonstrated in the soft tissues of the left hemithorax as well as the visualized portion of the left arm. Electronically signed by: Stephen Serrano On 01/13/2019 19:22:16 PM DD: STEPHEN SERRANO MD 01/13/19 182 DT: MARIAMA 01/13/191921 DS: CEZAR 01/13/191921 Yann Rasmussen MD Jan 13, 2019 21:43
[2019-01-13] MEDS ORDERED: MOM 30ML SUSPENSION UDC PO PRN (21:45)
[2019-01-13] MEDS ORDERED: MORPHINE 4 MG/ML 1ML VIAL/SYRINGE (J2270) IV PRN (21:45)
[2019-01-13] MEDS ORDERED: BISACODYL 10 MG SUPP PR PRN (21:45)
[2019-01-13] MEDS: DULoxetine 30 MG CAP (CYMBALTA) PO SCH (23:09)
[2019-01-13] MEDS: clonazePAM 1 MG TAB PO SCH (23:09)
[2019-01-13] MEDS: zolPIDEM TARTRATE 5 MG TAB PO SCH (23:10)
[2019-01-13] MEDS: MORPHINE 4 MG/ML 1ML VIAL/SYRINGE (J2270) IV PRN (23:18)
[2019-01-14 00:45] VITALS: BP 126/78
[2019-01-14] MEDS ORDERED: HEPARIN SOD (PORCINE) 5000 UNITS/ML VIAL IV PRN (01:00)
[2019-01-14] MEDS: NORCO, ANEXSIA 5/325MG TABLET (HYDROcodone/ACETAMINOPHEN) PO PRN ×6 (01:28→22:28)
[2019-01-14] MEDS: MORPHINE 4 MG/ML 1ML VIAL/SYRINGE (J2270) IV PRN ×4 (01:41→11:16)
[2019-01-14 01:59] LABS: HEMATOCRIT 35.2 % (36.0-47.0); HEMOGLOBIN 11.5 g/dl (12.0-15.5); MEAN CORPUSCULAR HEMOGLOBIN 28.5 pg (27.0-33.0); MEAN CORPUSCULAR HGB CONC 32.7 g/dl (32.0-36.5); MEAN CORPUSCULAR VOLUME 87.1 fl (80.0-96.0); PLATELET COUNT, AUTOMATED 269 10^3/uL (150-450); RED BLOOD COUNT 4.04 10^6/uL (4.00-5.40); WHITE BLOOD COUNT 3.1 10^3/uL (4.0-10.0)
[2019-01-14] MEDS ORDERED: **NOTE PATIENT COMMENT** MISC XX ONE (02:00)
[2019-01-14] MEDS: HEPARIN DRIP 25,000 UNITS in APPROPRIATE DILUENT 1 EA IV SCH ×2 (02:12→23:11)
[2019-01-14] MEDS: LEVOTHYROXINE 112MCG TABLET (0.112MG) PO SCH (05:09)
[2019-01-14 06:20] VITALS: BP 143/58
[2019-01-14 07:45] VITALS: BP 118/76
[2019-01-14] MEDS: PANTOPRAZOLE 40MG INJ (PROTONIX) (C9113) IV SCH ×2 (08:20→20:50)
[2019-01-14] MEDS: buPROPion **SR TABLET** (ZYBAN) 150MG PO SCH (08:21)
[2019-01-14] MEDS: SENOKOT S TAB PO SCH ×2 (08:21→20:51)
[2019-01-14] MEDS: DOCUSATE SODIUM 100 MG CAP PO SCH ×2 (08:21→20:51)
[2019-01-14 09:00] VITALS: BP 122/75
[2019-01-14] MEDS ORDERED: NS 1,000 ML IV SCH (11:32)
[2019-01-14] MEDS ORDERED: diphenhydrAMINE INJ 50MG/ML VIAL (J1200) IV PRN (11:45)
[2019-01-14] MEDS ORDERED: NALBUPHINE HCL 10 MG/ML AMP (J2300) IV PRN (11:45)
[2019-01-14] MEDS ORDERED: ONDANSETRON 4MG/2ML VIAL (J2405) IV PRN (11:45)
[2019-01-14] MEDS ORDERED: MORPHINE 1MG/ML IN 0.9% NACL 100ML IV BAG IV PRN ×3 (11:45)
[2019-01-14] MEDS ORDERED: EPIDURAL/PCA KEYS XX PRN (11:45)
[2019-01-14] MEDS ORDERED: NALOXONE INJ 0.4 MG/1 ML VIAL (J2310) IV PRN (11:45)
[2019-01-14 16:10] VITALS: BP 139/76
[2019-01-14] MEDS: LIDOCAINE 5% (LIDODERM) PATCH TD SCH (16:24)
[2019-01-14 20:00] VITALS: BP 130/78
[2019-01-14] MEDS: zolPIDEM TARTRATE 5 MG TAB PO SCH (20:50)
[2019-01-14] MEDS: DULoxetine 30 MG CAP (CYMBALTA) PO SCH (20:51)
[2019-01-14] MEDS: clonazePAM 1 MG TAB PO SCH (20:51)
[2019-01-14] MEDS: **NOTE PATIENT COMMENT** MISC XX SCH (20:52)
[2019-01-15 04:00] VITALS: BP 124/78
[2019-01-15] MEDS: NORCO, ANEXSIA 5/325MG TABLET (HYDROcodone/ACETAMINOPHEN) PO PRN ×4 (04:52→20:18)
[2019-01-15] MEDS: LEVOTHYROXINE 112MCG TABLET (0.112MG) PO SCH (05:45)
[2019-01-15] MEDS: buPROPion **SR TABLET** (ZYBAN) 150MG PO SCH (08:21)
[2019-01-15] MEDS: LIDOCAINE 5% (LIDODERM) PATCH TD SCH (08:21)
[2019-01-15] MEDS: PANTOPRAZOLE 40MG INJ (PROTONIX) (C9113) IV SCH ×2 (08:21→20:19)
[2019-01-15] MEDS: SENOKOT S TAB PO SCH ×2 (08:22→20:19)
[2019-01-15] MEDS: DOCUSATE SODIUM 100 MG CAP PO SCH ×2 (08:22→20:18)
[2019-01-15] MEDS ORDERED: ALTEPLASE RECOMBINANT 10 MG in APPROPRIATE DILUENT 1 EA IV ONE (12:30)
[2019-01-15] MEDS ORDERED: LIDOCAINE 2% MDV 20 ML VIAL As Ordered ONE (12:56)
[2019-01-15] MEDS ORDERED: ISOVUE-300 61% 50ML VIAL (Q9967) As Ordered ONE (12:57)
[2019-01-15] MEDS ORDERED: ALTEPLASE RECOMBINANT 25 MG in NS 225 ML IV SCH (13:00)
[2019-01-15] MEDS ORDERED: MIDAZOLAM INJ 2 MG/2 ML VIAL (J2250) As Ordered ONE (14:21)
[2019-01-15] MEDS ORDERED: fentaNYL 100 MCG/2 ML INJECTION (J3010) As Ordered ONE (14:21)
[2019-01-15 15:12] VITALS: BP 130/75
[2019-01-15 20:00] VITALS: BP 130/81
[2019-01-15] MEDS: DULoxetine 30 MG CAP (CYMBALTA) PO SCH (20:19)
[2019-01-15] MEDS: zolPIDEM TARTRATE 5 MG TAB PO SCH (20:19)
[2019-01-15] MEDS: **NOTE PATIENT COMMENT** MISC XX SCH (20:19)
[2019-01-15] MEDS: clonazePAM 1 MG TAB PO SCH (20:19)
[2019-01-15] MEDS ORDERED: HEPARIN DRIP 25,000 UNITS in APPROPRIATE DILUENT 1 EA IV SCH (21:45)
[2019-01-16] MEDS: NORCO, ANEXSIA 5/325MG TABLET (HYDROcodone/ACETAMINOPHEN) PO PRN ×6 (01:38→23:35)
[2019-01-16 06:00] VITALS: BP 135/85
[2019-01-16] MEDS: LEVOTHYROXINE 112MCG TABLET (0.112MG) PO SCH (06:02)
[2019-01-16] MEDS: PANTOPRAZOLE 40MG INJ (PROTONIX) (C9113) IV SCH ×2 (10:06→20:35)
[2019-01-16] MEDS: DOCUSATE SODIUM 100 MG CAP PO SCH ×2 (10:07→20:35)
[2019-01-16] MEDS: LIDOCAINE 5% (LIDODERM) PATCH TD SCH (10:07)
[2019-01-16] MEDS: buPROPion **SR TABLET** (ZYBAN) 150MG PO SCH (10:07)
[2019-01-16] MEDS: SENOKOT S TAB PO SCH ×2 (10:07→20:35)
[2019-01-16 14:00] VITALS: BP 147/96
[2019-01-16] MEDS: HEPARIN DRIP 25,000 UNITS in APPROPRIATE DILUENT 1 EA IV SCH (18:57)
[2019-01-16 20:00] VITALS: BP 143/87
[2019-01-16] MEDS: clonazePAM 1 MG TAB PO SCH (20:35)
[2019-01-16] MEDS: zolPIDEM TARTRATE 5 MG TAB PO SCH (20:35)
[2019-01-16] MEDS: DULoxetine 30 MG CAP (CYMBALTA) PO SCH (20:35)
[2019-01-16] MEDS: **NOTE PATIENT COMMENT** MISC XX SCH (20:36)
--- NOTE | 2019-01-16 22:35 | IPNPDOC ---
Subjective General Date/Time Seen The patient was seen on 01/16/19 at 22:35. Subject Chief Complaint/History The patient is a 38-year-old female admitted with a reason for visit of Dvt Of Axillary Vein,Acute Left,Hx Of Breast Cance. Current Medications Current Medications Current Medications Acetaminophen/ Hydrocodone Bitart (Gabbs, Anexsia 5/325) 2 tab Q4HP PRN PO PAIN Last administered on 01/16/19at 19:35; Start 01/14/19 at 01:00 Alteplase, Recombinant 25 mg/ Sodium Chloride 250 ml @ 10 mls/hr Q24H IV ; Start 01/15/19 at 13:00; Stop 01/16/19 at 22:33; Status DC Bisacodyl (Dulcolax Suppository) 10 mg DAILYPRN PRN IN CONSTIPATION; Start 01/13/19 at 21:45 Bupropion HCl (Zyban, Wellbutrin Sr) 150 mg DAILY PO Last administered on 01/16/19at 10:07; Start 01/14/19 at 09:00 Clonazepam (KlonoPIN) 1 mg QHS PO Last administered on 01/16/19at 20:35; Start 01/13/19 at 21:00 Diphenhydramine HCl (Benadryl) 12.5 mg Q4HP PRN IV ITCHING; Start 01/14/19 at 11:45; Status UNV Docusate Sodium (Colace) 100 mg BID PO Last administered on 01/16/19at 20:35; Start 01/14/19 at 09:00 Duloxetine HCl (Cymbalta) 60 mg QHS PO Last administered on 01/16/19at 20:35; Start 01/13/19 at 21:00 Heparin Sodium (Porcine) (Heparin) ASDIRECTED PRN IV SEE LABEL COMMENTS; Start 01/14/19 at 01:00; Stop 01/16/19 at 22:33; Status DC Heparin Sodium (Porcine) 59056 units/IV Miscellaneous Supplies 250 ml @ 9.8 mls/hr Q24H IV Last administered on 01/13/19at 18:50; Start 01/13/19 at 16:37; Stop 01/14/19 at 00:57; Status DC Heparin Sodium (Porcine) 50218 units/IV Miscellaneous Supplies 250 ml @ 0 mls/hr Q0M IV Last administered on 01/16/19at 18:57; Start 01/14/19 at 00:59; Stop 01/16/19 at 22:33; Status DC Heparin Sodium (Porcine) 32231 units/IV Miscellaneous Supplies 250 ml @ 0 mls/hr Q0M IV ; Start 01/15/19 at 21:45; Status Cancel Home Med (Med Rec Complete!) ASDIRECTED XX ; Start 01/13/19 at 17:15; Stop 01/13/19 at 17:15; Status DC Levothyroxine Sodium (Synthroid) 112 mcg DAILY@0600 PO Last administered on 01/16/19at 06:02; Start 01/14/19 at 06:00 Lidocaine (Lidoderm Patch) 1 patch DAILY TD Last administered on 01/16/19at 10:07; Start 01/14/19 at 09:00 Magnesium Hydroxide (Milk Of Magnesia) 30 ml DAILYPRN PRN PO CONSTIPATION; Start 01/13/19 at 21:45 Morphine Sulfate (Morphine Sulfate In 0.9%Nacl Iv Bag) Concentration 1 mg/ml ASDIRECTED PRN IV SEE LABEL COMMENTS; Start 01/14/19 at 11:45; Status UNV Morphine Sulfate (Morphine Sulfate In 0.9%Nacl Iv Bag) Concentration 1 mg/ml ASDIRECTED PRN IV SEE LABEL COMMENTS; Start 01/14/19 at 11:45; Status UNV Morphine Sulfate (Morphine Sulfate In 0.9%Nacl Iv Bag) Concentration 1 mg/ml ASDIRECTED PRN IV SEE LABEL COMMENTS; Start 01/14/19 at 11:45; Status UNV Morphine Sulfate (Morphine Sulfate Inj) 2 mg Q2HP PRN IV SEVERE PAIN (PS 8-10); Start 01/13/19 at 21:45; Stop 01/14/19 at 11:45; Status DC Morphine Sulfate (Morphine Sulfate Inj) 4 mg Q2HP PRN IV SEVERE PAIN (PS 8-10) Last administered on 01/14/19at 11:16; Start 01/13/19 at 21:45; Stop 01/14/19 at 11:45; Status DC Nalbuphine HCl (Nubain) 2.5 mg Q6HP PRN IV PRURITIS; Start 01/14/19 at 11:45; Stop 01/21/19 at 11:44; Status UNV Naloxone HCl (Narcan) 0.1 mg Q5MP PRN IV SEE LABEL COMMENTS; Start 01/14/19 at 11:45; Status UNV Non-Formulary Medication ( See Comment Field Below ) REMOVE LIDODERM PATCH DAILY@21 XX Last administered on 01/13/19at 20:50; Start 01/13/19 at 21:00; Stop 01/14/19 at 00:56; Status DC Non-Formulary Medication ( See Comment Field Below ) REMOVE LIDODERM PATCH DAILY@21 XX Last administered on 01/16/19at 20:36; Start 01/14/19 at 21:00 Non-Formulary Medication (Epidural/EXHAUST AND MUFFLER FITTER Tobias) USE THIS ENTRY TO VEND ... Q1M PRN XX SEE LABEL COMMENTS; Start 01/14/19 at 11:45; Status UNV Non-Formulary Medication (Heparin Iv Rate Change Documentation ml/ Hr) ASDIRECTED XX ; Start 01/14/19 at 01:00; Stop 01/16/19 at 22:33; Status DC Ondansetron HCl (ZOFRAN INJection) 4 mg Q6HP PRN IV NAUSEA; Start 01/14/19 at 11:45; Status UNV Pantoprazole Sodium (Protonix) 40 mg BID IV Last administered on 01/16/19 20:35; Start 01/14/19 at 09:00 Senna/Docusate Sodium (Senokot S) 1 tab BID PO Last administered on 01/16/19 20:35; Start 01/14/19 at 09:00 Sodium Chloride 1,000 ml @ 15 mls/hr Q24H IV ; Start 01/14/19 at 11:32; Status UNV Zolpidem Tartrate (Ambien) 10 mg QHS PO Last administered on 01/16/19 20:35; Start 01/13/19 at 21:00 Allergies Coded Allergies: No Known Drug Allergy (Verified Allergy, Unknown, 10/20/18) VITAL SIGNS VITAL SIGNS Vital Signs Date Time Temp Pulse Resp B/P (MAP) Pulse Ox O2 Delivery O2 Flow Rate FiO2 01/16/19 20:34 20 01/16/19 19:35 18 01/16/19 15:22 17 01/16/19 14:00 97.8 89 18 147/96 (113) 99 3/16/19 10:14 16 01/16/19 06:02 20 01/16/19 06:00 97.7 75 18 135/85 (102) 100 01/16/19 01:38 16 Intake & Output 01/16/19 06:00 Intake Total 796 ml Output Total 800 ml Balance -4 ml Laboratory Tests 01/16/19 07:11: Activated Partial Thromboplast Time 82.2H Current Medications Medications (Trade) Dose Ordered Sig/Kareen Route PRN Reason Start Time Stop Time Status Last Admin Dose Admin Acetaminophen/ Hydrocodone Bitart (Gabbs, Anexsia 5/325) 2 tab Q4HP PRN PO PAIN 01/14/19 01:00 01/16/19 19:35 Bupropion HCl (Zyban, Wellbutrin Sr) 150 mg DAILY PO 01/14/19 09:00 01/16/19 10:07 Clonazepam (KlonoPIN) 1 mg QHS PO 01/13/19 21:00 01/16/19 20:35 Docusate Sodium (Colace) 100 mg BID PO 01/14/19 09:00 01/16/19 20:35 Duloxetine HCl (Cymbalta) 60 mg QHS PO 01/13/19 21:00 01/16/19 20:35 Levothyroxine Sodium (Synthroid) 112 mcg DAILY@0600 PO 01/14/19 06:00 01/16/19 06:02 Lidocaine (Lidoderm Patch) 1 patch DAILY TD 01/14/19 09:00 01/16/19 10:07 Non-Formulary Medication ( See Comment Field Below ) REMOVE LIDODERM PATCH DAILY@21 XX 01/14/19 21:00 01/16/19 20:36 Pantoprazole Sodium (Protonix) 40 mg BID IV 01/14/19 09:00 01/16/19 20:35 Senna/Docusate Sodium (Senokot S) 1 tab BID PO 01/14/19 09:00 01/16/19 20:35 Zolpidem Tartrate (Ambien) 10 mg QHS PO 01/13/19 21:00 01/16/19 20:35 Yann Rasmussen MD Jan 16, 2019 22:35
[2019-01-16] MEDS: ENOXAPARIN 80 MG/0.8 ML SYRINGE (J1650) SC SCH (23:34)
[2019-01-17 00:16] LABS: CREATININE FOR GFR 0.64 MG/DL (0.55-1.30); GLOMERULAR FILTRATION RATE > 60.0 (>58)
[2019-01-17] MEDS: NORCO, ANEXSIA 5/325MG TABLET (HYDROcodone/ACETAMINOPHEN) PO PRN ×3 (04:29→14:10)
[2019-01-17 06:00] VITALS: BP 121/78
[2019-01-17] MEDS: LEVOTHYROXINE 112MCG TABLET (0.112MG) PO SCH (06:22)
[2019-01-17] MEDS: ENOXAPARIN 80 MG/0.8 ML SYRINGE (J1650) SC SCH (09:42)
[2019-01-17] MEDS: SENOKOT S TAB PO SCH (09:43)
[2019-01-17] MEDS: DOCUSATE SODIUM 100 MG CAP PO SCH (09:43)
[2019-01-17] MEDS: PANTOPRAZOLE 40MG INJ (PROTONIX) (C9113) IV SCH (09:43)
[2019-01-17] MEDS: LIDOCAINE 5% (LIDODERM) PATCH TD SCH (09:43)
[2019-01-17] MEDS: buPROPion **SR TABLET** (ZYBAN) 150MG PO SCH (09:43)
[2019-01-17 14:00] VITALS: BP 130/86
[2019-01-17] MEDS ORDERED: LOVE0.6I2 SC (14:03)
[2019-01-17] MEDS ORDERED: ENOXAPARIN 40 MG/0.4 ML SYRINGE (J1650) SC ONE (15:45)
--- NOTE | 2019-02-03 09:33 | REPIR ---
DATE OF PROCEDURE: 01/15/2019 PREOPERATIVE DIAGNOSIS: Left upper extremity deep venous thrombosis (DVT). POSTOPERATIVE DIAGNOSIS: Left upper extremity deep venous thrombosis (DVT). PROCEDURE: Ultrasound-guided left basilic vein cannulation. SURGEON: Dr. Josh Rasmussen. PARK LANDSCAPE ARCHITECT: Agustín Jackson and Anais Marie. ANESTHESIA: Local with sedation with 2 mg of Versed, 50 mcg of fentanyl and 10 mL of 2% lidocaine. SEDATION TIME: From 1424 through 1441 for a total of 17 minutes. Sedation and cardiopulmonary monitoring were performed under my direct supervision. I was present for directed the entire case. COMPLICATIONS: None. DRAINS: None. SPECIMENS: None. IMPLANTS: None. INDICATION: The patient is a 38-year-old female with left upper extremity DVT and breast cancer who has extensive swelling and pain in her left upper extremity who will undergo attempted venous thrombolysis with possible angioplasty stent and/or atherectomy. Risks, benefits and alternative options were discussed with the patient. DESCRIPTION OF PROCEDURE: The patient was taken to the angiography suite, placed supine on the angiography room table and prepped and draped in a standard surgical fashion. The patient was complaining of extreme pain and not cooperating prior to the patient even being prepped and draped. Ultrasound was used evaluate the left basilic vein which was noted to be widely patent, easily compressible and free of thrombus. Ultrasound was used to guide cannulation of the left basilic vein with real-time concurrent visualization of the entry of the needle into the basilic vein. The micropuncture wire was advanced through the micropuncture needle, which was upsized to a micropuncture sheath. At this point the patient was uncooperative and moving and screaming in pain and crying inconsolably and at this point the decision was made to terminate the procedure as the decision was that she was not a good candidate for attempted thrombolysis and/or angioplasty stenting and/or atherectomy. The micropuncture sheath was removed and manual compression was applied. Dressings were then applied. The patient tolerated the procedure well. All instrument, sponge, needle counts were correct at the end the case. There were no complications. Dr. Rasmussen was present for directed the entire case. The patient was transferred to the holding area and subsequent to the floor where she will continue with conservative therapy of her left upper extremity DVT with anticoagulation, elevation and compressive therapy.
--- NOTE | 2019-02-03 14:11 | DSES ---
DATE OF ADMISSION: 01/13/2019 DATE OF DISCHARGE: 01/17/2019 ADMISSION DIAGNOSES 1. Breast cancer. 2. Left upper extremity deep vein thrombosis with pain. DISCHARGE DIAGNOSES: 1. Breast cancer. 2. Left upper extremity deep vein thrombosis with pain. PROCEDURES PERFORMED DURING THE HOSPITALIZATION: Ultrasound-guided left basilic vein cannulation with attempted thrombolysis. HOSPITAL COURSE: The patient was admitted and started on anticoagulation due to worsening left upper extremity deep vein thrombosis (DVT) and swelling, and an attempt was made to perform a thrombolysis of the left upper extremity, but due to the patient's inability to tolerate the procedure and noncompliance, the procedure was aborted, and the patient will undergo conservative therapy with anticoagulation, compressive therapy, and elevation of her left upper extremity. The patient was subsequently discharged home in stable condition with Lovenox for her left upper extremity deep vein thrombosis (DVT). The patient will followup in 1 week in the office for outpatient followup
[2019-02-09] MEDS ORDERED: LASI20TA3 PO (10:58)
== END 2019-01-17 16:00 | disposition home or self-care (01) | DRG 197 ==
LOC: M ED 13:00 → M ED INP 21:33 → M MS4PR 01-14 00:45
PROVIDERS: ADMIT Surgery Vascular Surgery; ATTEND Surgery Vascular Surgery
PROC: B54NZZA Ultrasonography of Left Upper Extremity Veins, Guidance (ICD-10-PCS; principal; 2019-01-15)
DX: I82.A12 Acute embolism and thrombosis of left axillary vein (principal); C50.919 Malignant neoplasm of unspecified site of unspecified female breast; Z53.8 Procedure and treatment not carried out for other reasons; Z79.899 Other long term (current) drug therapy

== ENCOUNTER 2019-02-10 11:45 | Outpatient (RCR) | payer OTHER ==
[~2019-02-10 11:45] MED LIST changes: +BUPR15TASR PO; +LOVE0.6I2 SC
== END 2019-03-02 ==
LOC: M PT 11:45
PROVIDERS: ATTEND Physician Assistant
DX: I89.0 Lymphedema, not elsewhere classified (principal)

== ENCOUNTER → 2019-03-01 | Outpatient (REF) | payer OTHER | LOC: M LAB REF 19:05 | PROVIDERS: ATTEND Physician Assistant Medical | DX: J02.9 Acute pharyngitis, unspecified (principal) ==

== ENCOUNTER 2019-03-07 20:34 | Inpatient (IN) | payer OTHER ==
[~2019-03-07] VITALS: Ht 172.7 cm; Wt 82.3 kg
[2019-03-07] MEDS ORDERED: METH10TA2 PO (20:57)
[2019-03-07] MEDS ORDERED: VALA1TAB2 PO (20:57)
[2019-03-07] MEDS ORDERED: MORP15TA2 PO (20:57)
[2019-03-07] MEDS: valACYclovir HCL 500 MG TAB PO SCH (21:00)
--- NOTE | 2019-03-07 21:25 | ECGEPIP ---
Stationary ECG Study [facility] - ED Test Date: 2019-03-07 Pat Name: HIRAL GONZALEZ Department: Room: - Gender: F Field Care Manager: [facility] : 1980 Requested By: OSMIN Og Order Number: [id number] Reading MD: Gabby Childress Measurements Intervals [place] Rate: 92 P: 34 NE: 146 QRS: 48 QRSD: 81 T: 31 QT: 367 QTc: 456 Interpretive Statements SINUS RHYTHM WITH SINUS ARRHYTHMIA NONSPECIFIC T-WAVE ABNORMALITY COMPARED 12/29/18 Electronically Signed On 03-07-2019 21:25:23 EDT by Gabby Childress
[2019-03-07 21:33] LABS: BASO % 0.6 % (0.0-1.0); EOS % 1.2 % (0.0-3.0); HEMATOCRIT 32.6 % (36.0-47.0); HEMOGLOBIN 10.4 g/dl (12.0-15.5); LYMPH # 0.4 10^3/uL (1.5-4.5); MEAN CORPUSCULAR HEMOGLOBIN 27.4 pg (27.0-33.0); MEAN CORPUSCULAR HGB CONC 31.9 g/dl (32.0-36.5); MONO # 0.3 10^3/uL (0.0-0.8); MONO % 15.2 % (0.0-5.0); PLATELET COUNT, AUTOMATED 392 10^3/uL (150-450); RED BLOOD COUNT 3.79 10^6/uL (4.00-5.40)
[2019-03-07] MEDS ORDERED: PERCOCET 5MG/325MG TAB PO ONE (21:45)
[2019-03-07 21:53] LABS: WHITE BLOOD COUNT 1.7 10^3/uL (4.0-10.0)
[2019-03-07 22:17] LABS: BLOOD UREA NITROGEN 6 MG/DL (7-18); C REACTIVE PROTEIN QUANTITATIV 4.23 MG/DL (0.00-0.30); CALCIUM LEVEL 8.3 MG/DL (8.5-10.1); CARBON DIOXIDE LEVEL 29 MEQ/L (21-32); CHLORIDE LEVEL 102 MEQ/L (98-107); CREATININE FOR GFR 0.64 MG/DL (0.55-1.30); GLOMERULAR FILTRATION RATE > 60.0 (>58); GLUCOSE, FASTING 84 MG/DL (70-100); POTASSIUM SERUM 4.6 MEQ/L (3.5-5.1); SODIUM LEVEL 136 MEQ/L (136-145)
--- NOTE | 2019-03-07 22:27 | REPVR ---
EXAM: CT Chest Without Contrast EXAM DATE/TIME: 03/07/2019 9:34 PM CLINICAL HISTORY: 38 years old, female; Condition or disease; Lung condition and disease; Other: . ; Prior surgery; Surgery date: 6+ months; Additional info: Cough (h/o stage 4 breast ca) TECHNIQUE: Imaging protocol: Axial computed tomography images of the chest without intravenous contrast. Coronal and sagittal reformatted images were created and reviewed. 3D rendering: MIP reconstructed images were created and reviewed. Radiation optimization: All CT scans at this facility use at least one of these dose optimization techniques: automated exposure control; mA and/or kV adjustment per patient size (includes targeted exams where dose is matched to clinical indication); or iterative reconstruction. COMPARISON: CT Chest with contrast 12/04/2018 6:56 AM FINDINGS: Lungs: Mild bilateral fibro-atelectatic change and minimal patchy infiltrates. Pleural space: Moderate left pleural effusion. Heart: Normal. No cardiomegaly. No pericardial effusion. Mediastinum: Induration of the mediastinal fat which is nonspecific. Aorta: Normal. No aortic aneurysm. Lymph nodes: Question of small mediastinal nodes with some soft tissue fullness in the azygo-esophageal recess and subcarinal region which may reflect nodes. Bones/joints: Unremarkable. No acute fracture. Soft tissues: Bilateral breast implants or reconstructions. IMPRESSION: 1. Moderate left pleural effusion, new since 12/04/2018 with new mild bilateral fibro-atelectatic change and minimal patchy infiltrates. 2. Soft tissue fullness in the azygo-esophageal recess and subcarinal region which may reflect nodes which is new since the prior study. Electronically signed by: Yovanny Beaulieu On 03/07/2019 22:26:16 PM
--- NOTE | 2019-03-07 22:35 | REPVR ---
EXAM: US Duplex Left Upper Extremity Veins, Limited EXAM DATE/TIME: 03/07/2019 10:25 PM CLINICAL HISTORY: 38 years old, female; Pain and signs and symptoms; Edema, localized; Upper extremity, left; Arn, upper and arm; Additional info: Left arm swelling R/O dvt TECHNIQUE: Imaging protocol: Real-time Duplex ultrasound of the Left Upper Extremity with 2-D guzmán scale, color Doppler flow and spectral waveform analysis. Limited exam focused on the left upper extremity veins. COMPARISON: US DUPLEX EXT UPPER VEINS UNILATE 01/13/2019 2:40 PM FINDINGS: The Left deep veins: See Left Superficial Veins Finding. Left superficial veins: The left internal jugular, subclavian and cephalic veins appear normal. The remaining left upper extremity veins are not seen. Soft tissues: There is left upper extremity subcutaneous edema. Other findings: Limited exam due to patient's inability to tolerate. IMPRESSION: 1. Limited exam. 2. Left upper extremity subcutaneous edema. 3. The left internal jugular, subclavian and cephalic veins appear normal. The remaining veins are not seen. Electronically signed by: Yovanny Beaulieu On 03/07/2019 22:35:50 PM
[2019-03-07] MEDS ORDERED: PIPERACILLIN/TAZOBACTAM SOD 3.375 GM in D5W MINI-BAG PLUS 50 ML IV ONE (23:00)
[2019-03-08] MEDS ORDERED: MORPHINE 4 MG/ML 1ML VIAL/SYRINGE (J2270) IV ONE
[2019-03-08] MEDS ORDERED: MAALOX 30 ML SUSP *UDC PO PRN (00:30)
[2019-03-08] MEDS ORDERED: ACETAMINOPHEN TAB 650MG DOSE (2X325MG) PO PRN (00:30)
[2019-03-08] MEDS ORDERED: MOM 30ML SUSPENSION UDC PO PRN (00:30)
[2019-03-08] MEDS ORDERED: ENOX80IN3 SC (00:38)
[2019-03-08] MEDS ORDERED: CYCL10TA PO (00:38)
[2019-03-08] MEDS ORDERED: BUPR300T34 PO (00:38)
[2019-03-08] MEDS ORDERED: OMEP-221 PO (00:38)
[2019-03-08] MEDS ORDERED: FURO20TA2 PO (00:38)
[2019-03-08] MEDS ORDERED: LORA-436 PO (00:38)
[2019-03-08] MEDS ORDERED: ONDANSETRON 4MG/2ML VIAL (J2405) IV PRN (00:45)
[2019-03-08] MEDS ORDERED: CYCLOBENZAPRINE 10 MG TAB PO PRN (01:00)
[2019-03-08] MEDS ORDERED: MORPHINE 30 MG TAB **MSIR PO PRN (01:00)
[2019-03-08 01:10] LABS: PROTHROMBIN TIME 13.3 SECONDS (12.1-14.4)
[2019-03-08 01:12] LABS: PARTIAL THROMBOPLASTIN TIME 35.4 SECONDS (25.4-37.6)
--- NOTE | 2019-03-08 01:18 | HPEPDOC ---
General Date of Admission March 08, 2019 at 00:27 Chief Complaint The patient is a 38-year-old female admitted with a reason for visit of Pleural Effusion,Left. Source: Patient, Old records History of Present Illness Ms. Brunner is a 38 years old woman with hx/o metastatic left breast cancer. She presented to ER with c/o SOB. She has many other chronic problems, especially pain due to cancer and left arm swelling/pain due to DVT. But SOB is a new symptom. Old record shows that she had small left pleural effusion, but a CT scan done tonight in the ER showed significant increase. She has no fever or cough. ER lab is significant for moderate leucopenia. Vitals are good, with mild tachypnea and borderline tachycardia. O2 sat is good in room air. Home Medications Scheduled Bupropion HCl (Bupropion Xl) 300 Mg Tab.er.24h, 300 MG PO DAILY, (Reported) Clonazepam (Clonazepam) 1 Mg Tab, 1 MG PO QHS, (Reported) PATIENT TOOK EARLIER THAN HS TODAY BECAUSE OF BREATHING PROBLEMS Duloxetine Hcl (Duloxetine HCl) 60 Mg Cap, 60 MG PO QHS, (Reported) Enoxaparin Sodium (Enoxaparin Sodium) 80 Mg/0.8 Ml Syringe, 80 MG SC Q12H, (Reported) Furosemide (Furosemide) 20 Mg Tablet, 20 MG PO DAILY, (Reported) Levothyroxine Sodium (Levothyroxine Sodium) 112 Mcg Tab, 112 MCG PO DAILY, (Reported) Lisdexamfetamine Dimesylate (Vyvanse) 40 Mg Cap, 40 MG PO DAILY, (Reported) Loratadine (Loratadine) 10 Mg Tablet, 10 MG PO DAILY, (Reported) Omeprazole (Omeprazole) 40 Mg Capsule.dr, 40 MG PO DAILY, (Reported) Valacyclovir HCl (Valacyclovir) 1,000 Mg Tablet, 1,000 MG PO TID, (Reported) Zolpidem Tartrate (Ambien) 10 Mg Tab, 10 MG PO QHS, (Reported) Scheduled PRN Cyclobenzaprine HCl (Cyclobenzaprine HCl) 10 Mg Tablet, 10 MG PO TID PRN for MUSCLE SPASMS, (Reported) Methadone HCl (Methadone HCl) 10 Mg Tablet, 10 MG PO TID PRN for PAIN, (Reported) Morphine Sulfate (Morphine Sulfate) 15 Mg Tablet, 15 MG PO Q4H PRN for PAIN, (Re ported) Allergies Coded Allergies: No Known Allergies (Unverified , 01/29/19) Past Medical History Medical History 1. Stage IV Left Breast Cancer with metastasis to mediastinum, left breast dermal tissue, axillary LN, Iliac LN; s/p Lumpectomy, radiation and Chemo 2. DVT of Left Arm 3. Hypothyroidism Surgical History Left breast lumpectomy; shoulder surgery Family History Significant Family History: Other (Cirrhosis) Social History * Smoker: former Smoker Alcohol: occationally Drugs: denies A-FIB/CHADSVASC A-FIB History Current/History of A-Fib/PAF?: No Review of Systems Constitutional: Reports: Weakness, Fatigue; Denies: Chills, Fever ENT: Denies: Head Aches Skin: Reports: Rash (left breast skin changes due to metastasis) Pulmonary: Reports: Dyspnea; Denies: Cough Cardiovascular: Denies: Chest Pain Gastrointestinal: Denies: Nausea, Vomiting Genitourinary: Denies: Dysuria Musculoskeletal: Reports: Arm Pain (left) Neurological: Reports: Weakness Psych: Reports: Mood Normal Physical Examination General Exam: Positive: Alert, Cooperative, No Acute Distress Eye Exam: Positive: PERRLA ENT Exam: Positive: Atraumatic Neck Exam: Positive: Supple Chest Exam: Positive: Diminished (decreased breath sound on the lower half of the left lung field) Heart Exam: Positive: Rate Normal, Regular Rhythm Abdomen Exam: Positive: Normal bowel sounds, Soft, Tenderness Extremity Exam: Positive: Edema (extensive edema of the left arm- unchanged) Skin Exam: Positive: Other skin issue (thick, erythematous dermal changes on the left breast tissue from metastasis) Psych Exam: Positive: Mental status NL Vital Signs Vital Signs Date Time Temp Pulse Resp B/P (MAP) Pulse Ox O2 Delivery O2 Flow Rate FiO2 03/08/19 00:19 90 20 101/65 (77) 97 Room Air 03/07/19 20:35 99.7 Laboratory Data Labs 24H Laboratory Tests 2 03/07/19 21:04: Immature Granulocyte % (Auto) 0.0, White Blood Count 1.7L, Red Blood Count 3.79L, Hemoglobin 10.4L, Hematocrit 32.6L, Mean Corpuscular Volume 86.0, Mean Corpuscular Hemoglobin 27.4, Mean Corpuscular Hemoglobin Concent 31.9L, Red Cell Distribution Width 17.2H, Platelet Count 392, Neutrophils (%) (Auto) 59.0, Lymphocytes (%) (Auto) 24.0, Monocytes (%) (Auto) 15.2H, Eosinophils (%) (Auto) 1.2, Basophils (%) (Auto) 0.6, Neutrophils # (Auto) 1.0L, Lymphocytes # (Auto) 0.4L, Monocytes # (Auto) 0.3, Eosinophils # (Auto) 0.0, Basophils # (Auto) 0.0, Nucleated Red Blood Cells % (auto) 0.0, Anion Gap 5L, Glomerular Filtration Rate > 60.0, Lactic Acid Level 1.4, Blood Urea Nitrogen 6L, Creatinine 0.64, Sodium Level 136, Potassium Level 4.6, Chloride Level 102, Carbon Dioxide Level 29, Calcium Level 8.3L, C-Reactive Protein, Quantitative 4.23H 03/07/19 21:05: CBC/BMP Laboratory Tests 03/07/19 21:04 Red Blood Count 3.79 L, Mean Corpuscular Volume 86.0, Mean Corpuscular Hemoglobin 27.4, Mean Corpuscular Hemoglobin Concent 31.9 L, Red Cell Distribution Width 17.2 H, Neutrophils (%) (Auto) 59.0, Lymphocytes (%) (Auto) 24.0, Monocytes (%) (Auto) 15.2 H, Eosinophils (%) (Auto) 1.2, Basophils (%) (Auto) 0.6, Neutrophils # (Auto) 1.0 L, Lymphocytes # (Auto) 0.4 L, Monocytes # (Auto) 0.3, Eosinophils # (Auto) 0.0, Basophils # (Auto) 0.0, Calcium Level 8.3 L Microbiology Microbiology 03/07/19 Blood Culture, Received Pending Assessment/Plan 38 years old woman with metastatic breast cancer is presenting with dyspnea due to malignant left pleural effusion. The skin changes on left breast is not a cellulitic/infectious change, but from metastasis. Symptomatic, Malignant Left Pleural Effusion - Admit to inpatient - Will arrange for therapeutic thoracocentesis tomorrow Metastatic Left Breast Cancer - Palliative care consult as requested by patient - Pain management: continue home dose of Methadone, plus prn Percocet. Problems (1) Pleural effusion, left Status: Acute Plan / VTE VTE Prophylaxis Ordered?: Yes ROLANDO CHEN MD March 08, 2019 01:18
[2019-03-08 02:00] VITALS: BP 110/70
[2019-03-08] MEDS ORDERED: ENOXAPARIN 80 MG/0.8 ML SYRINGE (J1650) SC SCH (02:00)
[2019-03-08] MEDS: ENOXAPARIN 80 MG/0.8 ML SYRINGE (J1650) SC SCH ×3 (02:21→20:19)
[2019-03-08] MEDS: DULoxetine 30 MG CAP (CYMBALTA) PO SCH ×2 (02:21→20:40)
[2019-03-08] MEDS: zolPIDEM TARTRATE 10MG TAB PO SCH ×2 (02:21→21:17)
[2019-03-08] MEDS: METHADONE 10 MG TAB (S0109) PO PRN (04:01)
[2019-03-08] MEDS: ALPRAZolam 0.5 MG TAB PO PRN (04:25)
[2019-03-08 06:00] VITALS: BP 123/78
[2019-03-08] MEDS: LEVOTHYROXINE 112MCG TABLET (0.112MG) PO SCH (06:19)
[2019-03-08] MEDS ORDERED: METHADONE 10 MG TAB (S0109) PO SCH (09:00)
[2019-03-08] MEDS ORDERED: HEPARIN SOD (PORCINE) 5000 UNITS/ML VIAL SC SCH (09:00)
[2019-03-08] MEDS: valACYclovir HCL 500 MG TAB PO SCH ×3 (09:07→20:40)
[2019-03-08] MEDS: FUROSEMIDE 20 MG TAB PO SCH (09:07)
[2019-03-08] MEDS: PERCOCET 5MG/325MG TAB PO PRN ×3 (09:08→21:18)
[2019-03-08] MEDS: buPROPion **XL** TABLET 150MG (WELLBUTRIN XL) PO SCH (09:09)
[2019-03-08] MEDS: DOCUSATE SODIUM 100 MG CAP PO SCH ×2 (09:09→20:40)
[2019-03-08] MEDS: LORATADINE 10 MG TAB PO SCH (09:09)
--- NOTE | 2019-03-08 10:50 | IPNPDOC ---
Subjective Date Seen The patient was seen on 03/08/19. Subjective Chief Complaint/HPI Pt this morning really wants to go home. She has two children at home. She states that Dr Beltran told her last night that she needs to get her affairs in order and consider Palliative care. She states that her oncologist from [facility] Dr Garcia hasn't prepared her for that at all. She reports that his recent visits have been optimistic, she is scheduled to start new chemotherapy on Friday 03/16. He has told her that the swelling in her L arm will soon subside. She reports that her friend Barby or her JIE in [facility] attend appts with her. She has her friend Barby and a couple other friends in [facility] to help her. She states that most of her family is not involved with her care. General: Reports: Fatigue Pulmonary: Denies: Dyspnea, Cough Gastrointestinal: Denies: Nausea, Vomiting Neurological: Reports: Weakness Psych: Reports: Depression Objective Physical Examination General Exam: Positive: Alert, Cooperative, No Acute Distress Eye Exam: Positive: PERRLA ENT Exam: Positive: Atraumatic Neck Exam: Positive: Supple Chest Exam: Positive: Diminished (decreased breath sound on the lower half of the left lung field) Heart Exam: Positive: Rate Normal, Regular Rhythm Abdomen Exam: Positive: Normal bowel sounds, Soft, Tenderness Extremity Exam: Positive: Edema (extensive edema of the left arm) Skin Exam: Positive: Other skin issue (thick, erythematous dermal changes on the left breast tissue from metastasis) Psych Exam: Positive: Mental status NL A-FIB/CHADSVASC A-FIB History Current/History of A-Fib/PAF?: No Current Oral Anticoagulant The: Yes Assessment /Plan Problems (1) Metastatic breast cancer Status: Chronic Response to Treatment: Progressing Discussed With: Nurse, Patient Problem Specific Plan: Monitor Clinically Problem Text: Pt reports that Dr Orlando was very upfront with her about her poor prognosis and she is quite surprised at this as she feels Dr Garcia in [facility] hasn't been quite this honest with her. She has documented 02/16 from [facility] extensive metastatic disease to include her L chest wall, L sup breast dermal tission, B hilar, mediastinal and subclavian adenopathy, retroperitoneal and L iliac lymphadenopathy. She would like to go home to spend as much time as she can with her family. She reports that she isn't scheduled to go back to [facility] until 03/16. I suggested that she call her oncologist to ask him some of the questions that I attempted to answer for her today. According to the last note that it was discussed with the pt her poor prognosis, although palliative care does not appear to have been recommended. She states that is her prognosis is poor she isn't sure as though continuing treatment is really in her best interest. She would like to go home today. (2) Pleural effusion, left Status: Acute Discussed With: Patient Problem Specific Plan: Monitor Clinically Problem Text: Scheduled for thoracentesis 03/09 12 pm. This can be done an outpt if she pt is to go home today. (3) Lymphedema of left upper extremity Status: Acute Problem Specific Plan: Monitor Clinically Problem Text: This has been persistent since the pt was dx with LUE DVT. She has been on therapeutic doses of Lovenox. (4) Left upper extremity deep vein thrombosis Status: Acute Problem Text: See above. Plan/VTE VTE Prophylaxis Ordered?: Yes VS, I&O, 24H, Fishbone Vital Signs/I&O Vital Signs Date Time Temp Pulse Resp B/P (MAP) Pulse Ox O2 Delivery O2 Flow Rate FiO2 03/08/19 09:08 18 2.0 03/08/19 06:00 98.6 87 123/78 (93) 97 03/08/19 01:17 Nasal Cannula I&O- Last 24 Hours up to 6 AM 03/08/19 06:00 Intake Total 360 ml Output Total 800 ml Balance -440 ml Laboratory Data 24H LABS Laboratory Tests 2 03/07/19 21:04: Immature Granulocyte % (Auto) 0.0, White Blood Count 1.7L, Red Blood Count 3.79L, Hemoglobin 10.4L, Hematocrit 32.6L, Mean Corpuscular Volume 86.0, Mean Corpuscular Hemoglobin 27.4, Mean Corpuscular Hemoglobin Concent 31.9L, Red Cell Distribution Width 17.2H, Platelet Count 392, Neutrophils (%) (Auto) 59.0, Lymphocytes (%) (Auto) 24.0, Monocytes (%) (Auto) 15.2H, Eosinophils (%) (Auto) 1.2, Basophils (%) (Auto) 0.6, Neutrophils # (Auto) 1.0L, Lymphocytes # (Auto) 0.4L, Monocytes # (Auto) 0.3, Eosinophils # (Auto) 0.0, Basophils # (Auto) 0.0, Nucleated Red Blood Cells % (auto) 0.0, Anion Gap 5L, Glomerular Filtration Rate > 60.0, Lactic Acid Level 1.4, Blood Urea Nitrogen 6L, Creatinine 0.64, Sodium Level 136, Potassium Level 4.6, Chloride Level 102, Carbon Dioxide Level 29, Calcium Level 8.3L, C-Reactive Protein, Quantitative 4.23H 03/07/19 21:05: Prothrombin Time 13.3, Prothromb Time International Ratio 1.00, Activated Partial Thromboplast Time 35.4 CBC/BMP Laboratory Tests 03/07/19 21:04 Red Blood Count 3.79 L, Mean Corpuscular Volume 86.0, Mean Corpuscular Hemogl obin 27.4, Mean Corpuscular Hemoglobin Concent 31.9 L, Red Cell Distribution Width 17.2 H, Neutrophils (%) (Auto) 59.0, Lymphocytes (%) (Auto) 24.0, Monocytes (%) (Auto) 15.2 H, Eosinophils (%) (Auto) 1.2, Basophils (%) (Auto) 0.6, Neutrophils # (Auto) 1.0 L, Lymphocytes # (Auto) 0.4 L, Monocytes # (Auto) 0.3, Eosinophils # (Auto) 0.0, Basophils # (Auto) 0.0, Calcium Level 8.3 L Microbiology Microbiology 03/07/19 Blood Culture, Received Pending RADHA NELSON PA-C March 08, 2019 10:50
[2019-03-08 14:00] VITALS: BP 127/71
--- NOTE | 2019-03-08 16:33 | DSES ---
DATE OF ADMISSION: 03/08/2019 DATE OF DISCHARGE: 03/08/2019 HISTORY: This is a 38-year-old female who has known metastatic left breast cancer who presented to [facility] emergency room complaining of shortness of breath as well as left arm pain and swelling. She has recently been diagnosed with deep vein thrombosis, is on anticoagulation with Lovenox subcutaneously twice daily at this point. She last saw her oncologist about [address] Garcia at [facility] whose recommendations at the time where to add medication of immunotherapy to her current chemotherapy. She anticipated starting this on March 16. Around that time that the discussion was held she developed a deep vein thrombosis which Dr. Garcia has been made aware of and has advised that the swelling in her upper extremity will subside. She was admitted by hospitalist overnight who reviewed her history with her, reviewed the multiple areas of metastases as well as lymphadenopathy and with new finding of pleural effusion and talked with the patient about consideration for palliative care. When I saw the patient this morning she was questioning whether or not she would be able to go home today. She understands that her time is limited and she has children that she would like to be able to be home to spend her time with. She has been scheduled for thoracentesis tomorrow March 09 as she has been getting therapeutic doses of Lovenox for her deep vein thrombosis and therefore is unable to be performed today. She would really like to go home so that she can spend some time with her family and she will come back to the hospital tomorrow for the thoracentesis. Dr. Reyes did see the patient he talked with her about concerns that maybe there could be an underlying pneumonia given her history of multiple recent hospitalizations as well as being immunocompromised. She is aware of this. She has recently been hospitalized for cellulitis of that left upper extremity done at [facility]. At this point she is not ready for a palliative care consult. She would like to go home, have the thoracentesis tomorrow. She would like to meet with her oncologist and get his input as she feels as though he has not really prepared her for this and at her last appointment felt as though he was more optimistic than she may be understanding at this point. Both Dr. Reyes and myself talked with her about our concerns with her going home, although understand her reason for doing so. She understands the risk associated with departing the hospital early versus staying for monitoring of labs and thoracentesis. DISCHARGE DIAGNOSIS: Her discharge diagnosis include asymptomatic malignant left pleural effusion metastatic breast cancer with mets to the mediastinum, left breast dermal tissue, axillary and iliac lymph nodes, deep vein thrombosis left upper extremity, hypothyroidism. DISCHARGE MEDICATIONS: Include - bupropion 300 mg daily - clonazepam 1 mg by mouth at bedtime - cyclobenzaprine 10 mg by mouth three times a day - duloxetine 60 mg by mouth at bedtime - Lovenox 80 mg subcutaneously twice daily (she will hold this until after her thoracentesis) - furosemide 20 mg daily - levothyroxine 112 mcg by mouth daily - loratadine 10 mg by mouth daily - methadone 10 mg by mouth three times a day as needed for pain - Morphine 15 mg every 4 hours as needed for pain - omeprazole 40 mg by mouth daily - valacyclovir 1000 mg by mouth three times a day - Ambien 10 mg by mouth at bedtime Her discharge plan will be to follow up with Jenniffer Joe on March 11 as previously scheduled. She will have the thoracentesis tomorrow at noon. Her activity should be as tolerated. Her diet is regular.
[2019-03-08] MEDS ORDERED: clonazePAM 1 MG TAB PO SCH (21:00)
[2019-03-08 22:00] VITALS: BP 128/70
[2019-03-09] MEDS: LEVOTHYROXINE 112MCG TABLET (0.112MG) PO SCH (05:39)
[2019-03-09] MEDS: PERCOCET 5MG/325MG TAB PO PRN ×2 (05:40→15:10)
[2019-03-09 06:00] VITALS: BP 135/79
[2019-03-09 06:37] LABS: HEMATOCRIT 29.7 % (36.0-47.0); HEMOGLOBIN 9.3 g/dl (12.0-15.5); MEAN CORPUSCULAR HEMOGLOBIN 27.4 pg (27.0-33.0); MEAN CORPUSCULAR HGB CONC 31.3 g/dl (32.0-36.5); MEAN CORPUSCULAR VOLUME 87.4 fl (80.0-96.0); PLATELET COUNT, AUTOMATED 323 10^3/uL (150-450)
[2019-03-09 06:54] LABS: BLOOD UREA NITROGEN 6 MG/DL (7-18); CALCIUM LEVEL 8.3 MG/DL (8.5-10.1); CARBON DIOXIDE LEVEL 29 MEQ/L (21-32); CHLORIDE LEVEL 105 MEQ/L (98-107); CREATININE FOR GFR 0.53 MG/DL (0.55-1.30); GLOMERULAR FILTRATION RATE > 60.0 (>58); GLUCOSE, FASTING 94 MG/DL (70-100); POTASSIUM SERUM 3.8 MEQ/L (3.5-5.1); SODIUM LEVEL 139 MEQ/L (136-145)
[2019-03-09 07:03] LABS: WHITE BLOOD COUNT 1.9 10^3/uL (4.0-10.0)
[2019-03-09] MEDS: LORATADINE 10 MG TAB PO SCH (08:39)
[2019-03-09] MEDS: buPROPion **XL** TABLET 150MG (WELLBUTRIN XL) PO SCH (08:39)
[2019-03-09] MEDS: METHADONE 10 MG TAB (S0109) PO PRN (08:39)
[2019-03-09] MEDS: ALPRAZolam 0.5 MG TAB PO PRN (08:39)
[2019-03-09] MEDS: DOCUSATE SODIUM 100 MG CAP PO SCH (08:39)
[2019-03-09] MEDS: FUROSEMIDE 20 MG TAB PO SCH (08:39)
[2019-03-09] MEDS: valACYclovir HCL 500 MG TAB PO SCH ×2 (08:40→15:07)
[2019-03-09 09:30] LABS: C REACTIVE PROTEIN QUANTITATIV 2.47 MG/DL (0.00-0.30)
[2019-03-09 09:43] LABS: ERYTHROCYTE SEDIMENTATION RATE 66 mm/hr (0-20)
[2019-03-09] MEDS: ENOXAPARIN 80 MG/0.8 ML SYRINGE (J1650) SC SCH ×2 (11:13)
[2019-03-09 14:19] LABS: PH BODY FLUID 7.608 UNITS (NOT ESTABLISHED); SOURCE, BODY FLUID pH PLEURAL
--- NOTE | 2019-03-09 14:39 | REP ---
CHEST, TWO VIEWS: Two views of the chest are performed status post left thoracentesis. There is residual pleural fluid on the left. There are bibasilar infiltrates. Heart size is not well evaluated. There is no pneumothorax. IMPRESSION: No pneumothorax status post left thoracentesis. Mild to moderate residual pleural fluid is present as well as bibasilar infiltrates. Electronically Signed by Franck Bobby MD 03/10/2019 03:28 P
[2019-03-09 14:43] LABS: AMYLASE, BODY FLUID 24 U/L (NOT ESTABLISHED); LDH, BODY FLUID 687 U/L (NOT ESTABLISHED); SOURCE, BODY FLUID AMYLASE PLEURAL; SOURCE, BODY FLUID GLUCOSE PLEURAL; SOURCE, BODY FLUID LDH PLEURAL; SOURCE, BODY FLUID TOT PROTEIN PLEURAL; TOTAL PROTEIN, BODY FLUID 3.8 G/DL (NOT ESTABLISHED)
[2019-03-09 14:54] LABS: APPEARANCE, BODY FLUID CLOUDY (CLEAR); PLEURAL FL COLOR YELLOW (COLORLESS); SOURCE, BODY FLUID PLEURAL
[2019-03-09 15:20] VITALS: BP 121/80
[2019-03-09 15:50] VITALS: BP 122/79
--- NOTE | 2019-03-10 14:38 | REP ---
Ultrasound-guided thoracentesis The procedure was performed by DAISHA Dill, under the personal supervision of Dr. Bobby. The risks and benefits of the procedure were explained to the patient and informed consent was obtained both verbally and written. Directly prior to the start of the procedure, a formal timeout was completed in the exam room. Pleural fluid in the left lung zone was localized using ultrasound guidance. The skin was prepped and draped in a sterile fashion. 12 ml 1% lidocaine was used as a local anesthetic. Using ultrasound guidance, an 8-Cambodian multiphase side-hole catheter was inserted and advanced into the fluid. 650 ml of yellow color fluid was withdrawn and sent to the lab for analysis. The patient tolerated the procedure well and there were no immediate complications. After the appropriate monitored convalescence the patient was discharged from the department. Reviewed by DAISHA Wood 03/09/2019 03:23 P Electronically Signed by Franck Bobby MD 03/10/2019 02:30 P
== END 2019-03-09 17:49 | disposition home or self-care (01) | DRG 382 ==
LOC: M ED 20:34 → M ED INP 03-08 00:27 → M MSPAV 03-08 01:30
PROVIDERS: ADMIT Internal Medicine; ATTEND Family Medicine
PROC: 0W9B3ZZ Drainage of Left Pleural Cavity, Percutaneous Approach (ICD-10-PCS; principal; 2019-03-09)
DX: C50.912 Malignant neoplasm of unspecified site of left female breast (principal); J91.0 Malignant pleural effusion; I82.622 Acute embolism and thrombosis of deep veins of left upper extremity; C77.1 Secondary and unspecified malignant neoplasm of intrathoracic lymph nodes; C77.3 Secondary and unspecified malignant neoplasm of axilla and upper limb lymph nodes; C79.2 Secondary malignant neoplasm of skin; E03.9 Hypothyroidism, unspecified; Z79.899 Other long term (current) drug therapy

== ENCOUNTER 2019-03-11 05:27 | Inpatient (IN) | payer OTHER ==
[~2019-03-11] VITALS: Ht 172.7 cm; Wt 84.5 kg
[~2019-03-11 05:27] MED LIST changes: +BUPR300T34 PO; +CYCL10TA PO; +ENOX80IN3 SC; +LORA-436 PO; +METH10TA2 PO; +OMEP-221 PO; +VALA1TAB2 PO
[2019-03-11] MEDS ORDERED: MORPHINE 4 MG/ML 1ML VIAL/SYRINGE (J2270) SC ONE (06:00)
[2019-03-11] MEDS ORDERED: MORPHINE 4 MG/ML 1ML VIAL/SYRINGE (J2270) IV ONE ×2 (06:30→08:15)
[2019-03-11 06:33] LABS: BASO % 0.9 % (0.0-1.0); EOS # 0.1 10^3/uL (0.0-0.50); EOS % 2.2 % (0.0-3.0); HEMATOCRIT 30.1 % (36.0-47.0); HEMOGLOBIN 9.7 g/dl (12.0-15.5); LYMPH # 0.5 10^3/uL (1.5-4.5); LYMPH % 22.8 % (24.0-44.0); MEAN CORPUSCULAR HEMOGLOBIN 28.2 pg (27.0-33.0); MEAN CORPUSCULAR HGB CONC 32.2 g/dl (32.0-36.5); MEAN CORPUSCULAR VOLUME 87.5 fl (80.0-96.0); MONO # 0.4 10^3/uL (0.0-0.8); NEUTROPHILS # 1.3 10^3/uL (1.8-7.7); NEUTROPHILS % 54.7 % (36.0-66.0); PLATELET COUNT, AUTOMATED 384 10^3/uL (150-450); RED BLOOD COUNT 3.44 10^6/uL (4.00-5.40); WHITE BLOOD COUNT 2.3 10^3/uL (4.0-10.0)
[2019-03-11 06:55] LABS: BLOOD UREA NITROGEN 8 MG/DL (7-18); CALCIUM LEVEL 8.4 MG/DL (8.5-10.1); CARBON DIOXIDE LEVEL 27 MEQ/L (21-32); CHLORIDE LEVEL 102 MEQ/L (98-107); CREATININE FOR GFR 0.56 MG/DL (0.55-1.30); GLOMERULAR FILTRATION RATE > 60.0 (>58); GLUCOSE, FASTING 82 MG/DL (70-100); POTASSIUM SERUM 5.4 MEQ/L (3.5-5.1); SODIUM LEVEL 134 MEQ/L (136-145)
--- NOTE | 2019-03-11 07:27 | REPVR ---
EXAM: CT Chest Without Contrast EXAM DATE/TIME: 03/11/2019 6:41 AM CLINICAL HISTORY: 38 years old, female; Chest pain; Type not specified; Additional info: Effusion, S/P thoracentesius R/O ptx TECHNIQUE: Imaging protocol: Axial computed tomography images of the chest without intravenous contrast. Coronal and sagittal reformatted images were created and reviewed. 3D rendering: MIP reconstructed images were created and reviewed. Radiation optimization: All CT scans at this facility use at least one of these dose optimization techniques: automated exposure control; mA and/or kV adjustment per patient size (includes targeted exams where dose is matched to clinical indication); or iterative reconstruction. COMPARISON: CT Chest without contrast 03/07/2019 9:24 PM FINDINGS: Lungs: There is consolidation and partial collapse of the left lower lobe, and patchy density likely due to atelectasis in the left upper lobe, without significant change. A small amount of SC density, likely atelectasis is present in the right middle lobe. Pleural space: No pneumothorax is seen. There is a moderate-sized layering left pleural effusion, similar in size to the prior exam. Heart: There is a small to moderate-sized pericardial effusion, similar to the prior exam. Aorta: Unremarkable No aortic aneurysm. Lymph nodes: There are multiple mildly enlarged right axillary lymph nodes. There is a suggestion of left axillary and mediastinal lymphadenopathy, but assessment is limited by the lack of IV contrast. Bones/joints: Unremarkable. No acute fracture. Soft tissues: Bilateral breast implants are present. There is left chest, axillary, and visualized left arm subcutaneous tissue edema and skin thickening, likely due to lymphedema. Upper abdomen: There is new slight elevation of the left diaphragm. IMPRESSION: 1. Moderate size left pleural effusion with volume loss and consolidation in the left lung, likely due to compressive atelectasis, without significant change from the prior exam. 2. No pneumothorax. 3. Probable lymphadenopathy, but assessment limited by the lack of contrast. 4. Small to moderate size pericardial effusion, unchanged. Electronically signed by: Adriane Sanchez On 03/11/2019 07:27:12 AM
[2019-03-11] MEDS ORDERED: EMLA CREAM 5GM (LIDOCAINE/PRILOCAINE) TOP ONE (07:45)
[2019-03-11 08:14] VITALS: O2SAT 95
--- NOTE | 2019-03-11 08:35 | REP ---
Portable chest x-ray: Single view. History: Shortness of breath. Comparison chest x-ray: March 09, 2019. Findings: A moderate left pleural effusion is seen opacifying the lower half of the left hemithorax essentially unchanged. Cardiac enlargement is observed. No definite infiltrate or effusion on the right. There are clips in the left axillary soft tissues. The left breast is surgically absent. Impression: Moderate left pleural effusion. Atelectasis and/or infiltrate left base above the pleural fluid. Findings unchanged. There is no evidence of pneumothorax. Electronically Signed by Charles Malone MD 03/11/2019 08:25 A
[2019-03-11] MEDS ORDERED: ENOXAPARIN 80 MG/0.8 ML SYRINGE (J1650) SC SCH (09:00)
[2019-03-11] MEDS ORDERED: VYVA40CA3 PO (09:23)
[2019-03-11] MEDS ORDERED: PILL CRUSHER/CUTTER 1 EACH XX PRN (12:00)
[2019-03-11 12:10] VITALS: BP 142/88
[2019-03-11] MEDS: LEVOTHYROXINE 112MCG TABLET (0.112MG) PO SCH (12:54)
[2019-03-11] MEDS: METHADONE 10 MG TAB (S0109) PO PRN ×2 (13:01→21:01)
[2019-03-11] MEDS: OMEPRAZOLE 20 MG CAP PO SCH (13:01)
[2019-03-11] MEDS: buPROPion **XL** TABLET 150MG (WELLBUTRIN XL) PO SCH (13:02)
[2019-03-11] MEDS: LORATADINE 10 MG TAB PO SCH (13:02)
[2019-03-11] MEDS: FUROSEMIDE 20 MG TAB PO SCH (13:02)
[2019-03-11] MEDS: valACYclovir HCL 500 MG TAB PO SCH ×4 (13:03→21:01)
--- NOTE | 2019-03-11 14:48 | HPE ---
DATE OF ADMISSION: 03/11/2019 CHIEF COMPLAINT: Shortness of breath and left arm pain. HISTORY OF PRESENT ILLNESS: Patient is a 38-year-old patient with known metastatic left breast cancer recently admitted for 03/08/2019 to 03/09/[address] of the chest at that time showed moderate left pleural effusion, new since 12/04/2018 with new mild bilateral fibroatelectatic change and minimal patchy infiltrates, soft tissue fullness in the azygoesophageal recess and subcarinal region, which may reflect nodes, new since the previous study as well. She underwent thoracentesis on 03/09/2019, at which time 650 mL of yellow fluid was withdrawn. There was still fluid there to be tapped; however, the patient developed significant pain and therefore they stopped the procedure prematurely. The fluid had 632 white blood cells with normal glucose, normal protein, normal LDH, normal amylase. No RBCs. Gram stain was negative. Culture was negative. Acid fast mycobacterial and fungal smears are all still pending. She left after her thoracentesis. Did not want to wait to stay for the results to come back. Unfortunately, she started to become more short of breath again and her left arm pain continued to be severe, related to significant lymphedema in the left arm. PAST MEDICAL HISTORY: Significant for: 1. Metastatic left breast cancer. She follows with Dr. Garcia at [facility] oncology. Per the note from this most recent admission here, she was supposed to start immunotherapy along with her current chemotherapy. 2. She has a deep venous thrombosis in her left arm and is on Lovenox for this. 3. She has significant lymphedema of the left arm. 4. She has hypothyroidism. SOCIAL HISTORY: She is a former smoker. Drinks alcohol occasionally. Denies drug use. MEDICATIONS: - bupropion 300 mg daily - clonazepam 1 mg at bedtime - cyclobenzaprine 10 mg three times a day as needed - duloxetine 60 mg at bedtime - Lovenox 80 units subcutaneous twice a day - furosemide 20 mg daily - levothyroxine 112 mcg daily - loratadine 10 mg daily - methadone 10 mg three times a day as needed for pain - morphine 15 mg every 4 hours as needed for pain - omeprazole 40 mg daily - valacyclovir 1000 mg three times a day - Ambien 10 mg at bedtime LABORATORIES: White count 2.3, which is improved, hemoglobin 9.7, platelets of 384,000, 54% neutrophils, 22% lymphocytes. Sodium 134, potassium 5.4, BUN 8, creatinine 0.56. Blood cultures have been ordered. Chest x-ray showed moderate left pleural effusion, atelectasis and/or infiltrate of the left base above the pleural fluid, findings unchanged. No pneumothorax. CT of the chest showed moderate left-sided left pleural effusion with volume loss and consolidation in the left lung, likely due to compressive atelectasis without significant change from prior exam. No pneumothorax. Probable lymphadenopathy but assessment limited by the lack of contrast. Small to moderate sized pericardial effusion, unchanged. ASSESSMENT AND PLAN: 1. Left pleural effusion, recently underwent thoracentesis, still has a fair amount of fluid present. I have ordered another thoracentesis to be done. We will have to hold her Lovenox for this. We will not repeat the cultures. I did reach out to try to get hold of Dr. Yeager, who is on vacation until next Friday. I have left a message with him so that he can review her case when he returns to look over whether or not she may be a candidate for something like a pleura cath 2. Left arm pain secondary to severe lymphedema. She is on chronic pain medications and methadone, we will continue these. I spoke with the local oncologist that she had seen, Dr. Shaver, who will be getting some of the records for me to review from [place] and from her office. We will need to sort out where we are at with her treatment and whether we are at a point where this would be palliative care, whether she may need followup with the local oncologist. The last time she saw her was in January. In the meantime, I have ordered a physical therapy consult to help with the lymphedema. There is a lymphedema specialist who can wrap the arm and we will try to obtain a full compression sleeve to manage the swelling that is contributing to her pain. 3. Left upper extremity deep vein thrombosis (DVT). She is normally on Lovenox. We will have to hold this in anticipation for thoracentesis. 4. History of breast cancer with metastases to the mediastinum, axillary and iliac lymph nodes, as discussed above. 5. Hypothyroidism. She remains on levothyroxine.
[2019-03-11] MEDS: MORPHINE 30 MG TAB **MSIR PO PRN ×2 (15:44→22:45)
[2019-03-11 16:00] VITALS: BP 128/71
[2019-03-11 20:00] VITALS: BP 141/67
[2019-03-11] MEDS: clonazePAM 1 MG TAB PO SCH (21:01)
[2019-03-11] MEDS: DULoxetine 30 MG CAP (CYMBALTA) PO SCH (21:01)
[2019-03-11] MEDS: zolPIDEM TARTRATE 5 MG TAB PO PRN (23:34)
[2019-03-11 23:59] VITALS: BP 131/79
[2019-03-12] MEDS: CYCLOBENZAPRINE 10 MG TAB PO PRN ×2 (00:41→10:28)
[2019-03-12 04:00] VITALS: BP 134/84
[2019-03-12 04:23] LABS: HEMATOCRIT 31.5 % (36.0-47.0); MEAN CORPUSCULAR HEMOGLOBIN 27.9 pg (27.0-33.0); MEAN CORPUSCULAR HGB CONC 31.7 g/dl (32.0-36.5); PLATELET COUNT, AUTOMATED 352 10^3/uL (150-450); RED BLOOD COUNT 3.58 10^6/uL (4.00-5.40); WHITE BLOOD COUNT 2.5 10^3/uL (4.0-10.0)
[2019-03-12 04:50] LABS: ALBUMIN 2.7 GM/DL (3.2-5.2); ALT/SGPT 24 U/L (12-78); BILIRUBIN,TOTAL 0.3 MG/DL (0.2-1.0); BLOOD UREA NITROGEN 7 MG/DL (7-18); CALCIUM LEVEL 8.4 MG/DL (8.5-10.1); CARBON DIOXIDE LEVEL 29 MEQ/L (21-32); CHLORIDE LEVEL 101 MEQ/L (98-107); GLOMERULAR FILTRATION RATE > 60.0 (>58); GLUCOSE, FASTING 89 MG/DL (70-100); POTASSIUM SERUM 4.1 MEQ/L (3.5-5.1); SODIUM LEVEL 137 MEQ/L (136-145); TOTAL PROTEIN 6.7 GM/DL (6.4-8.2)
[2019-03-12] MEDS: METHADONE 10 MG TAB (S0109) PO PRN ×3 (06:21→23:54)
[2019-03-12] MEDS: LEVOTHYROXINE 112MCG TABLET (0.112MG) PO SCH (06:21)
[2019-03-12 08:00] VITALS: BP 117/67
[2019-03-12] MEDS: valACYclovir HCL 500 MG TAB PO SCH ×2 (09:00→09:21)
[2019-03-12] MEDS: NYSTATIN 100,000 UNITS/GM TOPICAL PWD 15 GM TOP SCH ×2 (09:00→20:55)
[2019-03-12] MEDS: buPROPion **XL** TABLET 150MG (WELLBUTRIN XL) PO SCH (09:21)
[2019-03-12] MEDS: OMEPRAZOLE 20 MG CAP PO SCH (09:21)
[2019-03-12] MEDS: FUROSEMIDE 20 MG TAB PO SCH (09:22)
[2019-03-12] MEDS: LORATADINE 10 MG TAB PO SCH (09:22)
[2019-03-12] MEDS: MORPHINE 30 MG TAB **MSIR PO PRN ×3 (09:23→20:02)
--- NOTE | 2019-03-12 11:55 | IPNPDOC ---
Subjective Date Seen The patient was seen on 03/12/19. Subjective Chief Complaint/HPI Pt this morning is feeling alright. She cont to have SOB, difficulty taking a deep breath. Her left arm is feeling better now that it has been wrapped. She does c/o odor from her L axilla that she would like addressed. General: Reports: Fatigue Constitutional: Denies: Chills, Fever ENT: Denies: Head Aches Pulmonary: Reports: Dyspnea; Denies: Cough Cardiovascular: Denies: Chest Pain, Palpitations Gastrointestinal: Denies: Nausea, Vomiting, Diarrhea Musculoskeletal: Denies: Neck Pain Neurological: Reports: Weakness Psych: Reports: Mood Normal Objective Physical Examination General Exam: Positive: Alert, Cooperative, No Acute Distress Eye Exam: Positive: Conjunctiva & lids normal ENT Exam: Positive: Mucous membr. moist/pink Chest Exam: Negative: Diminished (crackles at L base) Heart Exam: Positive: Rate Normal, Normal S1, Normal S2 Abdomen Exam: Positive: Normal bowel sounds, Soft; Negative: Tenderness Extremity Exam: Negative: Edema (No LE edema, + LUW edema extending into the shoulder, L breast and axilla) Neuro Exam: Positive: Normal Speech Psych Exam: Positive: Mood NL A-FIB/CHADSVASC A-FIB History Current/History of A-Fib/PAF?: No Assessment /Plan Problems (1) Pleural effusion, left Status: Acute Response to Treatment: Stable Discussed With: Nurse, Patient Problem Specific Plan: Monitor Clinically Problem Text: 03/12/19: Patient had thoracentesis 03/09/2019. The patient is scheduled again today for a thoracentesis. Mild to moderate pleural fluid is visualized. While preparing for the thoracentesis procedure the patient could not maintain upright positioning for the procedure for an appropriate period of time and declined the procedure. Procedure may be performed at a later time if desired. Patient states she is "very SOB" if s O2 1-2 NC (although has not qualified for home O2). Plan to discuss case c Pulm vs TS; although I doubt symptoms are related to pleural effusion. 03/09/19 pleural fluid c - aerobic culture, cw exudative . 03/11/19 CT chest: 1. Moderate size left pleural effusion with volume loss and consolidation in the left lung, likely due to compressive atelectasis, without significant change from the prior exam. 2. No pneumothorax. 3. Probable lymphadenopathy, but assessment limited by the lack of contrast. 4. Small to moderate size pericardial effusion, unchanged. Electronically signed by: Paul Alaniz On 03/11/2019 07:27:12 AM DD: PAUL ALANIZ MD 03/11/19 0641 DT: MARIAMA 03/11/19726 DS: PRINCE 03/11/19726 [~ rep ct labl] (2) Lymphedema of left upper extremity Status: Chronic Response to Treatment: Stable Discussed With: Nurse, Patient Problem Specific Plan: Monitor Clinically Problem Text: Wrapped, improved swelling. Culture of axilla obtained, unable to fully visualize due amount of swelling-doubt secondary cellulitis at this point (3) Metastatic breast cancer Status: Chronic Problem Specific Plan: Monitor Clinically Problem Text: RW on admission spoke with Onc who plans to review records and meet with the pt. (4) Left upper extremity deep vein thrombosis Status: Chronic Response to Treatment: Stable Problem Specific Plan: Monitor Clinically Problem Text: Chronic Lovenox. Plan/VTE VTE Prophylaxis Ordered?: Yes VS, I&O, 24H, [facility] Vital Signs/I&O Vital Signs Date Time Temp Pulse Resp B/P (MAP) Pulse Ox O2 Delivery O2 Flow Rate FiO2 03/12/19 09:53 18 03/12/19 08:00 97.3 98 117/67 (84) 99 1.0 03/11/19 11:30 Nasal Cannula I&O- Last 24 Hours up to 6 AM 03/12/19 06:00 Intake Total 700 ml Output Total 700 ml Balance 0 ml Laboratory Data 24H LABS Laboratory Tests 2 03/12/19 04:10: Nucleated Red Blood Cells % (auto) 0.0, Anion Gap 7L, Glomerular Filtration Rate > 60.0, Blood Urea Nitrogen 7, Creatinine 0.60, Sodium Level 137, Potassium Lev el 4.1#, Chloride Level 101, Carbon Dioxide Level 29, Calcium Level 8.4L, Aspartate Amino Transf (AST/SGOT) 26, Alanine Aminotransferase (ALT/SGPT) 24, Alkaline Phosphatase 107, Total Bilirubin 0.3, Total Protein 6.7, Albumin 2.7L, Albumin/Globulin Ratio 0.68L CBC/BMP Laboratory Tests 03/12/19 04:10 Red Blood Count 3.58 L, Mean Corpuscular Volume 88.0, Mean Corpuscular Hemogl obin 27.9, Mean Corpuscular Hemoglobin Concent 31.7 L, Red Cell Distribution Width 16.9 H, Calcium Level 8.4 L, Aspartate Amino Transf (AST/SGOT) 26, Alanine Aminotransferase (ALT/SGPT) 24, Alkaline Phosphatase 107, Total Bilirubin 0.3, Total Protein 6.7, Albumin 2.7 L Microbiology Microbiology 03/11/19 Blood Culture - Preliminary, Resulted No growth after 24 hours . All specim... 03/11/19 Blood Culture - Preliminary, Resulted No growth after 24 hours . All specim... RADHA NELSON PA-C March 12, 2019 11:55 Reinaldo Reyes M.D. March 12, 2019 17:27
[2019-03-12 12:00] VITALS: BP 119/76
[2019-03-12] MEDS ORDERED: ALPRAZolam 0.5 MG TAB PO ONE (13:00)
[2019-03-12 16:00] VITALS: BP 113/70
--- NOTE | 2019-03-12 17:31 | REP ---
LIMITED SONOGRAM LEFT CHEST: Limited sonogram of the left chest was performed to evaluate pleural fluid. Patient had thoracentesis 03/09/2019. The patient is scheduled again today for a thoracentesis. Mild to moderate pleural fluid is visualized. While preparing for the thoracentesis procedure the patient could not maintain upright positioning for the procedure for an appropriate period of time and declined the procedure. Procedure may be performed at a later time if desired. Electronically Signed by Franck Bobby MD 03/17/2019 11:47 A
[2019-03-12 20:00] VITALS: BP 123/77
[2019-03-12] MEDS: DULoxetine 30 MG CAP (CYMBALTA) PO SCH (20:54)
[2019-03-12] MEDS: clonazePAM 1 MG TAB PO SCH (20:54)
[2019-03-12] MEDS ORDERED: AQUAPHOR **100GM** OINT TOP PRN (22:45)
[2019-03-12] MEDS: LIDOCAINE 5% OINT 30 GM TOP SCH (23:45)
[2019-03-13] VITALS: BP 137/88
[2019-03-13] MEDS: MORPHINE 30 MG TAB **MSIR PO PRN ×4 (02:44→23:13)
[2019-03-13 04:00] VITALS: BP 136/88
[2019-03-13] MEDS: LEVOTHYROXINE 112MCG TABLET (0.112MG) PO SCH (05:40)
[2019-03-13] MEDS: CYCLOBENZAPRINE 10 MG TAB PO PRN ×2 (05:42→16:50)
[2019-03-13 08:00] VITALS: BP 127/69
[2019-03-13] MEDS ORDERED: LIDOCAINE 5% OINT 30 GM TOP SCH (09:00)
[2019-03-13] MEDS: LORATADINE 10 MG TAB PO SCH (09:00)
[2019-03-13] MEDS: LIDOCAINE 5% OINT 30 GM TOP SCH ×3 (09:00→21:15)
[2019-03-13] MEDS: FUROSEMIDE 20 MG TAB PO SCH (09:00)
[2019-03-13] MEDS: buPROPion **XL** TABLET 150MG (WELLBUTRIN XL) PO SCH (09:00)
[2019-03-13] MEDS: METHADONE 10 MG TAB (S0109) PO PRN ×2 (09:01→18:47)
[2019-03-13] MEDS: OMEPRAZOLE 20 MG CAP PO SCH (09:01)
[2019-03-13] MEDS: NYSTATIN 100,000 UNITS/GM TOPICAL PWD 15 GM TOP SCH ×2 (09:01→21:16)
--- NOTE | 2019-03-13 11:13 | IPNPDOC ---
Subjective Date Seen The patient was seen on 03/13/19. Subjective Chief Complaint/HPI sense of dyspnea remains; left upper chest pain is significant. Pulmonary: Reports: Dyspnea, Pleuritic Chest Pain; Denies: Cough Cardiovascular: Denies: Palpitations, Paroxysmal Noc. Dyspnea Gastrointestinal: Denies: Nausea, Vomiting Hematologic: Denies: Bruising Neurological: Denies: Weakness Psych: Reports: Mood Normal Objective Physical Examination General Exam: Positive: Alert, Cooperative, No Acute Distress Eye Exam: Positive: Conjunctiva & lids normal ENT Exam: Positive: Mucous membr. moist/pink Chest Exam: Negative: Diminished (crackles at L base) Heart Exam: Positive: Rate Normal, Normal S1, Normal S2 Abdomen Exam: Positive: Normal bowel sounds, Soft; Negative: Tenderness Extremity Exam: Negative: Edema (No LE edema, + LUW edema extending into the shoulder, L breast and axilla) Skin Exam: Positive: Other skin issue (cobblestone changes in skin near breast, also noted over back left side. very firm, no ulcerations or vesicles. open area at top of left breast, near axillary crease with skin breakdown noted. in area approx [id number]. not actively draining.) Neuro Exam: Positive: Normal Speech Psych Exam: Positive: Mood NL A-FIB/CHADSVASC A-FIB History Current/History of A-Fib/PAF?: No Assessment /Plan Problems (1) Pleural effusion, left Status: Acute Response to Treatment: Stable Discussed With: Nurse, Patient Problem Specific Plan: Monitor Clinically Problem Text: 03/13/19 the effusion may contribute to sense of dyspnea due to shunting associated with compression of underlying lung, despite demonstration of adequate sats, too high to qualify for oxygen. 03/12/19: Patient had thoracentesis 03/09/2019. The patient is scheduled again today for a thoracentesis. Mild to moderate pleural fluid is visualized. While preparing for the thoracentesis procedure the patient could not maintain upright positioning for the procedure for an appropriate period of time and declined the procedure. Procedure may be performed at a later time if desired. Patient states she is "very SOB" if s O2 1-2 [place] (although has not qualified for home O2). Plan to discuss case c Pulm vs TS; although I doubt symptoms are related to pleural effusion. 03/09/19 pleural fluid c - aerobic culture, cw exudative . 03/11/19 CT chest: 1. Moderate size left pleural effusion with volume loss and consolidation in the left lung, likely due to compressive atelectasis, without significant change from the prior exam. 2. No pneumothorax. 3. Probable lymphadenopathy, but assessment limited by the lack of contrast. 4. Small to moderate size pericardial effusion, unchanged. Electronically signed by: Paul Alaniz On 03/11/2019 07:27:12 AM DD: PAUL ALANIZ MD 03/11/1943 DT: MARIAMA 03/11/19726 DS: PRINCE 03/11/19726 [~ rep ct labl] (2) Lymphedema of left upper extremity Status: Chronic Response to Treatment: Stable Discussed With: Nurse, Patient Problem Specific Plan: Monitor Clinically Problem Text: Wrapped, improved swelling. Culture of axilla obtained, unable to fully visualize due amount of swelling-doubt secondary cellulitis at this point (3) Metastatic breast cancer Status: Chronic Problem Specific Plan: Monitor Clinically Problem Text: 03/13 skin changes suspicious for lymphatic spread of cancer. RW on admission spoke with Onc who plans to review records and meet with the pt. (4) Left upper extremity deep vein thrombosis Status: Chronic Response to Treatment: Stable Problem Specific Plan: Monitor Clinically Problem Text: resume lovenox unless thoracentesis can be attempted today. Chronic Lovenox. (5) Left-sided chest wall pain Status: Acute Response to Treatment: Uncontrolled Problem Text: pain stems from complications from breast reconstructive surgery and cancer which looks to be spreading in lymphatics based on skin appearance. at present her pain is adequately controlled on morphine 15mg q4 hours as needed, methadone 10mg tid and topical lidocaine. Plan/VTE VTE Prophylaxis Ordered?: Yes VS, I&O, 24H, Fishbone Vital Signs/I&O Vital Signs Date Time Temp Pulse Resp B/P (MAP) Pulse Ox O2 Delivery O2 Flow Rate FiO2 03/13/19 09:02 1.0 03/13/19 08:00 98.5 103 18 127/69 (88) 95 03/11/19 11:30 Nasal Cannula I&O- Last 24 Hours up to 6 AM 03/13/19 06:00 Intake Total 1230 ml Output Total 0 ml Balance 1230 ml Laboratory Data Microbiology Microbiology 03/11/19 Blood Culture - Preliminary, Resulted No Growth after 48 hours. All Specime... 03/11/19 Blood Culture - Preliminary, Resulted No Growth after 48 hours. All Specime... 03/12/19 Gram Stain - Final, Resulted 03/12/19 Wound Culture, Resulted Pending Darius Nayak MD March 13, 2019 11:13
[2019-03-13] MEDS ORDERED: VANCOMYCIN HCL 1,000 MG, VIAL MATE ADAPTER 1 EACH in D5W 250 ML IV SCH (11:15)
[2019-03-13 12:00] VITALS: BP 124/79
[2019-03-13] MEDS: ENOXAPARIN 80 MG/0.8 ML SYRINGE (J1650) SC SCH ×2 (14:00→23:14)
[2019-03-13] MEDS: DOCUSATE SODIUM 100 MG CAP PO SCH ×2 (14:00→21:15)
[2019-03-13] MEDS: IMIPENEM/CILASTATIN 500 MG in D5W MINI-BAG PLUS 100 ML IV SCH ×3 (14:00→23:14)
[2019-03-13] MEDS ORDERED: VANCOMYCIN HCL 1,000 MG, VIAL MATE ADAPTER 1 EACH in D5W 250 ML IV ONE (15:00)
[2019-03-13 15:40] LABS: CREATININE FOR GFR 0.54 MG/DL (0.55-1.30); GLOMERULAR FILTRATION RATE > 60.0 (>58)
[2019-03-13 16:00] VITALS: BP 136/91
[2019-03-13] MEDS ORDERED: VANCOMYCIN HCL 750 MG, VIAL MATE ADAPTER 1 EACH in D5W 250 ML IV ONE (17:00)
[2019-03-13 20:00] VITALS: BP 118/80
[2019-03-13] MEDS: DULoxetine 30 MG CAP (CYMBALTA) PO SCH (21:14)
[2019-03-13] MEDS: clonazePAM 1 MG TAB PO SCH (21:14)
[2019-03-14] VITALS: BP 124/77
[2019-03-14] MEDS: VANCOMYCIN HCL 750 MG, VIAL MATE ADAPTER 1 EACH in D5W 250 ML IV SCH ×3 (00:41→20:15)
[2019-03-14] MEDS: ACETAMINOPHEN TAB 650MG DOSE (2X325MG) PO PRN ×2 (00:45→11:53)
[2019-03-14] MEDS: VANCOMYCIN HCL 500 MG in D5W MINI-BAG PLUS 100 ML IV SCH ×3 (01:58→21:35)
[2019-03-14] MEDS: CYCLOBENZAPRINE 10 MG TAB PO PRN ×2 (01:58→11:53)
[2019-03-14] MEDS: METHADONE 10 MG TAB (S0109) PO PRN ×2 (03:51→11:53)
[2019-03-14] MEDS: MORPHINE 30 MG TAB **MSIR PO PRN ×2 (03:51→08:59)
[2019-03-14 04:00] VITALS: BP 121/83
[2019-03-14] MEDS: IMIPENEM/CILASTATIN 500 MG in D5W MINI-BAG PLUS 100 ML IV SCH ×4 (05:44→23:26)
[2019-03-14] MEDS: LEVOTHYROXINE 112MCG TABLET (0.112MG) PO SCH (05:44)
[2019-03-14 07:21] LABS: HEMATOCRIT 32.5 % (36.0-47.0); HEMOGLOBIN 10.7 g/dl (12.0-15.5); MEAN CORPUSCULAR HEMOGLOBIN 28.3 pg (27.0-33.0); MEAN CORPUSCULAR HGB CONC 32.9 g/dl (32.0-36.5); PLATELET COUNT, AUTOMATED 362 10^3/uL (150-450); RED BLOOD COUNT 3.78 10^6/uL (4.00-5.40); WHITE BLOOD COUNT 3.2 10^3/uL (4.0-10.0)
[2019-03-14 08:00] VITALS: BP 130/78
[2019-03-14] MEDS: LORATADINE 10 MG TAB PO SCH (08:47)
[2019-03-14] MEDS: FUROSEMIDE 20 MG TAB PO SCH (08:47)
[2019-03-14] MEDS: OMEPRAZOLE 20 MG CAP PO SCH (08:47)
[2019-03-14] MEDS: buPROPion **XL** TABLET 150MG (WELLBUTRIN XL) PO SCH (08:47)
[2019-03-14] MEDS: DOCUSATE SODIUM 100 MG CAP PO SCH ×2 (08:48→21:35)
[2019-03-14] MEDS: NYSTATIN 100,000 UNITS/GM TOPICAL PWD 15 GM TOP SCH ×2 (09:00→21:35)
--- NOTE | 2019-03-14 09:46 | IPNPDOC ---
Subjective Date Seen The patient was seen on 03/14/19. Subjective Chief Complaint/HPI pain remains adequately controlled. dyspnea stable ENT: Denies: Head Aches Skin: Reports: Other (lymphedema left arm) Pulmonary: Reports: Dyspnea, Pleuritic Chest Pain (some chest discomfort with deep inspiration.) Cardiovascular: Denies: Chest Pain, Palpitations Gastrointestinal: Denies: Nausea, Abdominal Pain Hematologic: Denies: Bruising Neurological: Denies: Weakness Psych: Reports: Anxiety (especially with procedure.) Objective Physical Examination General Exam: Positive: Alert, Cooperative, No Acute Distress Eye Exam: Positive: Conjunctiva & lids normal ENT Exam: Positive: Mucous membr. moist/pink Chest Exam: Negative: Diminished (crackles at L base) Heart Exam: Positive: Rate Normal, Normal S1, Normal S2 Abdomen Exam: Positive: Normal bowel sounds, Soft; Negative: Tenderness Extremity Exam: Negative: Edema (No LE edema, + LUW edema extending into the shoulder, L breast and axilla) Skin Exam: Positive: Other skin issue (significant swelling c/w lymphedema involving left arm; cobblestone changes in skin near breast, also noted over back left side. very firm, no ulcerations or vesicles. open area at top of left breast, near axillary crease with skin breakdown noted. in area approx [id number]. not actively draining.) Neuro Exam: Positive: Normal Speech Psych Exam: Positive: Mood NL A-FIB/CHADSVASC A-FIB History Current/History of A-Fib/PAF?: No Assessment /Plan Problems (1) Pleural effusion, left Status: Acute Response to Treatment: Stable Discussed With: Nurse, Patient Problem Specific Plan: Monitor Clinically Problem Text: 03/14/19 no sufficiently skilled provider available until 03/15/19 to re-attempt draining effusion. 03/13/19 the effusion may contribute to sense of dyspnea due to shunting associated with compression of underlying lung, despite demonstration of adequate sats, too high to qualify for oxygen. 03/12/19: Patient had thoracentesis 03/09/2019. The patient is scheduled again today for a thoracentesis. Mild to moderate pleural fluid is visualized. While preparing for the thoracentesis procedure the patient could not maintain upright positioning for the procedure for an appropriate period of time and declined the procedure. Procedure may be performed at a later time if desired. Patient states she is "very SOB" if s O2 1-2 NC (although has not qualified for home O2). Plan to discuss case c Pulm vs TS; although I doubt symptoms are related to pleural effusion. 03/09/19 pleural fluid c - aerobic culture, cw exudative . 03/11/19 CT chest: 1. Moderate size left pleural effusion with volume loss and consolidation in the left lung, likely due to compressive atelectasis, without significant change from the prior exam. 2. No pneumothorax. 3. Probable lymphadenopathy, but assessment limited by the lack of contrast. 4. Small to moderate size pericardial effusion, unchanged. Electronically signed by: Paul Alaniz On 03/11/2019 07:27:12 AM DD: PAUL ALANIZ MD 03/11/19 0641 DT: MARIAMA 03/11/19726 DS: PRINCE 03/11/19726 [~ rep ct labl] (2) Lymphedema of left upper extremity Status: Chronic Response to Treatment: Stable Discussed With: Nurse, Patient Problem Specific Plan: Monitor Clinically Problem Text: 03/14: patient removed wrap, too uncomfortable for her. Wrapped, improved swelling. Culture of axilla obtained, unable to fully visualize due amount of swelling-doubt secondary cellulitis at this point (3) Left upper extremity deep vein thrombosis Status: Chronic Response to Treatment: Stable Problem Specific Plan: Monitor Clinically Problem Text: resume lovenox unless thoracentesis can be attempted today. Chronic Lovenox. (4) Positive blood culture Status: Acute Problem Text: Lab reporting Gram positive Rods on gram stain and no growth so far. started on imipenem and vanc pending definitive result. since she has corynebacterium and staph in surface wound culture(no surprise) the BC may represent contaminant. have consulted Dr. Valdez for access help since her current IV is tenuous. she eventually will need Port but with this questionable blood culture, the port should wait. (5) Metastatic breast cancer Status: Chronic Problem Specific Plan: Monitor Clinically Problem Text: 03/13 skin changes suspicious for lymphatic spread of cancer. Patient reports skin biopsy done by her plastic surgery confirmed skin involvement. RW on admission spoke with Onc who plans to review records and meet with the pt. (6) Left-sided chest wall pain Status: Acute Response to Treatment: Uncontrolled Problem Text: pain stems from complications from breast reconstructive surgery and cancer which looks to be spreading in lymphatics based on skin appearance. at present her pain is adequately controlled on morphine 15mg q4 hours as needed, methadone 10mg tid and topical lidocaine. Plan/VTE VTE Prophylaxis Ordered?: Yes Plan Anticipated Discharge: Home VS, I&O, 24H, Fishbone Vital Signs/I&O Vital Signs Date Time Temp Pulse Resp B/P (MAP) Pulse Ox O2 Delivery O2 Flow Rate FiO2 03/14/19 08:59 99.0 102 18 130/78 96 1.0 03/11/19 11:30 Nasal Cannula I&O- Last 24 Hours up to 6 AM 03/14/19 06:00 Intake Total 1675 ml Output Total 1800 ml Balance -125 ml Laboratory Data 24H LABS Laboratory Tests 2 03/13/19 15:08: Glomerular Filtration Rate > 60.0 03/14/19 06:54: Nucleated Red Blood Cells % (auto) 0.0 CBC/BMP Laboratory Tests 03/13/19 15:08 03/14/19 06:54 Red Blood Count 3.78 L, Mean Corpuscular Volume 86.0, Mean Corpuscular Hemoglobin 28.3, Mean Corpuscular Hemoglobin Concent 32.9, Red Cell Distribution Width 16.9 H Microbiology Microbiology 03/11/19 Blood Culture - Preliminary, Resulted No Growth after 72 hours. All specime... 03/11/19 Blood Culture - Preliminary, Resulted 03/12/19 Gram Stain - Final, Resulted 03/12/19 Wound Culture - Preliminary, Resulted Staphylococcus Aureus Corynebacterium Species Darius Nayak MD March 14, 2019 09:46
[2019-03-14] MEDS ORDERED: LORazepam 2 MG/ML VIAL (J2060) IV STA (10:33)
--- NOTE | 2019-03-14 11:32 | CR.PDOC ---
General Date of Consultation: March 14, 2019 Consultation REASON FOR CONSULTATION/CHIEF COMPLAINT: Limited options for IV access HISTORY OF PRESENT ILLNESS: Ms Brunner is a very pleasant 38yo patient with metastatic breast cancer, lymphedema of the left upper extremity, concern for possible bacteremia, and limited IV access. We have been asked to place a TLC. Discussed risks, benefits and alternatives to central line placement. The patient is higher risk due to significant left pleural effusion, SOB, difficulty laying flat, full dose lovenox, and anxiety/claustraphobia, but we will do our best to minimize these risks and place a RIJ TLC. Informed consent obtained. All questions answered. ALLERGIES: Please see below. HOME MEDICATIONS: Please see below. PAST MEDICAL HISTORY: 1. Metastatic breast cancer 2. H/o LUE DVT 3. LUE lymphedema 4. hypothroidism 5. GERD PAST SURGICAL HISTORY: 1. Mastectomies, reconstruction 2. Portacath FAMILY HISTORY: heart disease, cancer SOCIAL HISTORY: Former smoker, denies ETOH or illicit drug use REVIEW OF SYSTEMS: CONSTITUTIONAL: +Malaise, +night sweats HEENT: No new vision changes or hearing loss CARDIOVASCULAR: Denies CP, +palpitations RESPIRATORY: ++SOB, +left effusion, +cough GENITOURINARY: Denies dysuria MUSCULOSKELETAL: +back pain GASTROINTESTINAL: +GERD, +nausea SKIN: +wounds L chest, L back, L axilla NEUROLOGICAL: +TOBIN PSYCHIATRIC: +anxiety, +depression ENDOCRINE: +thyroid disease HEMATOLOGIC/LYMPHATIC: +easy bruising ALLERGIC/IMMUNOLOGIC: +immunocompromised PHYSICAL EXAMINATION: VITAL SIGNS: Please see below. GENERAL APPEARANCE: Pt appears ill due to cancer but medically stable. NAD. HEENT: Scar over scalp, hair is shaved, vision and hearing grossly intact RESPIRATORY: Diminished breath sounds and crackles L, CTA R CARDIOVASCULAR: RR tacchy 108 ABDOMEN: Soft Nt ND EXTREMITIES: Distal perfusion intact. LUE very edematous, erythematous, TTP. Skin excoriation left chest, axilla, and upper back NEUROLOGICAL: A&Ox3, no focal deficits PSYCHIATRIC: pleasant and cooperative LABORATORY DATA: Please see below. ASSESSMENT/PLAN: 1. Will place US guided RIJ central line. 2. CXR following placement. 3. Ok to continue lovenox abena-procedure. Vital Signs/I&O Vital Signs Date Time Temp Pulse Resp B/P (MAP) Pulse Ox O2 Delivery O2 Flow Rate FiO2 03/14/19 08:59 99.0 102 18 130/78 96 1.0 03/11/19 11:30 Nasal Cannula I&O- Last 24 Hours up to 6 AM 03/14/19 06:00 Intake Total 1675 ml Output Total 1800 ml Balance -125 ml Laboratory Data Labs 24H Laboratory Tests 2 03/13/19 15:08: Glomerular Filtration Rate > 60.0 03/14/19 06:54: Nucleated Red Blood Cells % (auto) 0.0 CBC/BMP Laboratory Tests 03/13/19 15:08 03/14/19 06:54 Red Blood Count 3.78 L, Mean Corpuscular Volume 86.0, Mean Corpuscular Hemoglobin 28.3, Mean Corpuscular Hemoglobin Concent 32.9, Red Cell Distribution Width 16.9 H Microbiology Microbiology 03/11/19 Blood Culture - Preliminary, Resulted No Growth after 72 hours. All specime... 03/11/19 Blood Culture - Preliminary, Resulted 03/12/19 Gram Stain - Final, Resulted 03/12/19 Wound Culture - Preliminary, Resulted Staphylococcus Aureus Corynebacterium Species Allergies Coded Allergies: No Known Allergies (Unverified , 03/11/19) Home Medications Scheduled Bupropion HCl (Bupropion Xl) 300 Mg Tab.er.24h, 300 MG PO DAILY, (Reported) Clonazepam (Clonazepam) 1 Mg Tab, 1 MG PO QHS, (Reported) Duloxetine Hcl (Duloxetine HCl) 60 Mg Cap, 60 MG PO QHS, (Reported) Enoxaparin Sodium (Enoxaparin Sodium) 80 Mg/0.8 Ml Syringe, 80 MG SC Q12H, (Reported) Furosemide (Furosemide) 20 Mg Tablet, 20 MG PO DAILY, (Reported) Levothyroxine Sodium (Levothyroxine Sodium) 112 Mcg Tab, 112 MCG PO DAILY, (Reported) Lisdexamfetamine Dimesylate (Vyvanse) 40 Mg Capsule, 40 MG PO DAILY, (Reported) Loratadine (Loratadine) 10 Mg Tablet, 10 MG PO DAILY, (Reported) Omeprazole (Omeprazole) 40 Mg Capsule.dr, 40 MG PO DAILY, (Reported) Valacyclovir HCl (Valacyclovir) 1,000 Mg Tablet, 1,000 MG PO TID, (Reported) Zolpidem Tartrate (Ambien) 10 Mg Tab, 10 MG PO QHS, (Reported) Scheduled PRN Cyclobenzaprine HCl (Cyclobenzaprine HCl) 10 Mg Tablet, 10 MG PO TID PRN for MUSCLE SPASMS, (Reported) Methadone HCl (Methadone HCl) 10 Mg Tablet, 10 MG PO TID PRN for PAIN, (Reported) Morphine Sulfate (Morphine Sulfate) 15 Mg Tablet, 15 MG PO Q4H PRN for PAIN, (Reported) BARTOLO GREEN MD March 14, 2019 10:11
--- NOTE | 2019-03-14 11:43 | ROOPDOC ---
[facility] Report Of Operation Report of Operation DATE OF PROCEDURE: 03/14/19 PREPROCEDURE DIAGNOSES: Poor IV access POSTPROCEDURE DIAGNOSES: Same PROCEDURE: 1. US guided access RIJ 2. Placement triple lumen catheter RIJ SURGEON: Bartolo Valdez MD ANESTHESIA: Local- 5cc lidocaine INDICATION FOR PROCEDURE: Ms Brunner is a very pleasant 38yo patient with metastatic breast cancer, LUE lymphedema, and poor IV access. She requires IV antibiotics for bacteremia and wounds on her L chest/axilla/back. She requires frequent lab draws and other IV medications as well. After extensive nursing attempts, the only PIV obtainable was in her right thumb. Risks, benefits, and alternatives were explained to the patient and she is agreeable to proceed. She has a known left pleural effusion (symptomatic), claustrophobia, anxiety, and is on lovenox, which add a bit of increased risk, and we will minimize her risk and discomfort as much as possible. Informed consent obtained. PROCEDURE: The patient's right neck was examined with US and her RIJ was widely patent. We prepped and draped her right neck in a sterile fashion. A time out was performed. Local anesthesia was administered to the subcutaneous tissue over the right neck. US was used to guide access to the RIJ and a wire easily passed through this access. A 2mm incision was made at the skin at the access site, and a dilator was advance over the wire using a seldinger technique. The catheter was then advanced over the wire, the wire was removed, and all 3 ports héctor back and flushed easily. Appropriate caps were placed. The catheter was secured at the skin with sutures. Sterile dressings were applied. The head of bed was then elevated until the patient was comfortable. A cxr was obtained and the tip of the catheter was freely mobile in the right atrium. No pneumothorax was noted. Vital signs remained stable pre and post line placement. The patient tolerated the procedure well. ESTIMATED BLOOD LOSS: Approximately 2 mL. COMPLICATIONS: none. PLAN: It is ok to use the catheter. BARTOLO VALDEZ MD March 14, 2019 11:43
[2019-03-14] MEDS: ENOXAPARIN 80 MG/0.8 ML SYRINGE (J1650) SC SCH ×2 (11:53→20:22)
--- NOTE | 2019-03-14 11:56 | REP ---
PORTABLE CHEST X-RAY: SINGLE VIEW. HISTORY: Line placement. Comparison radiograph, March 11, 2019. FINDINGS: A right internal jugular central venous line is seen terminating in the expected location of the right atrium. There is no evidence of pneumothorax. There is a small to moderate left pleural effusion. Pulmonary vascular congestion is seen. Hazy opacity throughout the right hemithorax in this patient suggests pulmonary edema pattern. There is some mild fissural thickening. IMPRESSION: No pneumothorax seen. Right internal jugular central venous catheter terminates in the expected location of the right atrium. Left pleural effusion. Pulmonary edema pattern. Electronically Signed by Charles Malone MD 03/14/2019 01:43 P
[2019-03-14 12:00] VITALS: BP 122/80
[2019-03-14] MEDS: MORPHINE 10MG/0.5ML ORAL CONCENTRATE SOLUTION U/D SL PRN ×2 (13:24→21:36)
[2019-03-14] MEDS: LIDOCAINE 5% OINT 30 GM TOP SCH ×3 (13:28→22:58)
[2019-03-14 15:45] LABS: CREATININE FOR GFR 0.66 MG/DL (0.55-1.30); GLOMERULAR FILTRATION RATE > 60.0 (>58)
[2019-03-14 16:00] VITALS: BP 114/78
--- NOTE | 2019-03-14 16:52 | PHACANCOPD ---
PHARMACY VANCOMYCIN DOSING Pt Demographics Demographics Patient Age:38 , Weight:83.900 , Gender: female Adjusted Body Weight Events Past 24 Hours Events Past 24 Hours: YES: Other Vancomycin Vancomycin indication: SEPSIS Vancomycin Target Ranges: 15-20 mcg/ml Vancomycin Load Y/N: Yes Load Dose Date Time Vancomycin Load Dose: 1750 Date: 03/13/19 Time: 1600 Vancomycin Dose Date: 03/14/19. Current Vancomycin Dose: [1250MG Q8H] Intermittent Dosing?: No Labs Labs Laboratory Tests 03/14/19 06:54 Red Blood Count 3.78 L, Mean Corpuscular Volume 86.0, Mean Corpuscular Hemoglobin 28.3, Mean Corpuscular Hemoglobin Concent 32.9, Red Cell Distribution Width 16.9 H 03/14/19 15:05 Micro Microbiology 03/11/19 Blood Culture - Preliminary, Resulted No Growth after 72 hours. All specime... 03/11/19 Blood Culture - Preliminary, Resulted 03/12/19 Gram Stain - Final, Resulted 03/12/19 Wound Culture - Preliminary, Resulted Staphylococcus Aureus Corynebacterium Species Creatinine Clearance Date:03/14/19. Creatinine Clearance: [143]. Assessment and Plan Maintaining Current Dose?: Yes Reason for dose change: No Dose Change Pharmacist Note Pharmacist Note Date: 03/14/19. Pharmacist note: PT HAS NO HISTORY OF VANCOMYCIN AT [facility]. PT ALSO RECEIVING PRIMAXIN 500MG Q6H. GAVE PT LOADING DOSE OF 1750MG IV VANCO @ 1600 ON 03/13/19 FOLLOWED BY MAINTENANCE DOSAGE OF 1250MG Q8H STARTING AT 00. THEN ON 03/14/19 PT RECEIVED 750MG DOSE @0900 BUT DID NOT RECEIVE 500MG DOSE UNTIL 1200 DUE TO BEING OFF FLOOR FOR PROCEDURE. A RESULT TROUGH CAME BACK HIGH 3 HOURS LATER AT 22.6 @1505. I AM KEEPING THE DOSE THE SAME BECAUSE I BELIEVE THE TROUGH WAS ONLY HIGH DUE TO THE DELAYED 500MG DOSE. I HELD THE 1500 DOSE AND RESTARTED THE 1250MG Q8H REGIMEN AT 1900. I HAVE SCHEDULED TROUGH FOR TOMORROW AT 1000. I WILL CONTINUE TO MONITOR PATIENT AND ADJUST DOSE NEEDED. VENICE REAGAN [facility]ARM[facility] March 14, 2019 16:52
[2019-03-14] MEDS ORDERED: VANCOMYCIN HCL 750 MG, VIAL MATE ADAPTER 1 EACH in D5W 250 ML IV SCH (17:00)
[2019-03-14] MEDS ORDERED: SODIUM CHLORIDE 0.9% INJ 10 ML SYR IV PRN (18:45)
[2019-03-14 20:00] VITALS: BP 130/82
[2019-03-14] MEDS: MIRALAX *UNIT DOSE* 17GM PACKET PO SCH (21:35)
[2019-03-14] MEDS: clonazePAM 1 MG TAB PO SCH (22:58)
[2019-03-14] MEDS: SODIUM CHLORIDE 0.9% INJ 10 ML SYR IV SCH (22:58)
[2019-03-14] MEDS: DULoxetine 30 MG CAP (CYMBALTA) PO SCH (22:58)
[2019-03-14] MEDS: zolPIDEM TARTRATE 5 MG TAB PO PRN (23:26)
[2019-03-15] VITALS (12 sets, daily range): BP systolic 120–157; BP diastolic 70–90
[2019-03-15] MEDS: CYCLOBENZAPRINE 10 MG TAB PO PRN ×2 (00:33→18:40)
[2019-03-15] MEDS: METHADONE 10 MG TAB (S0109) PO PRN ×3 (00:34→23:10)
[2019-03-15] MEDS: MORPHINE 10MG/0.5ML ORAL CONCENTRATE SOLUTION U/D SL PRN ×5 (02:35→21:51)
[2019-03-15] MEDS: VANCOMYCIN HCL 750 MG, VIAL MATE ADAPTER 1 EACH in D5W 250 ML IV SCH ×3 (02:36→21:10)
[2019-03-15] MEDS: VANCOMYCIN HCL 500 MG in D5W MINI-BAG PLUS 100 ML IV SCH ×3 (03:49→23:11)
[2019-03-15] MEDS: SODIUM CHLORIDE 0.9% INJ 10 ML SYR IV SCH ×3 (05:24→15:55)
[2019-03-15] MEDS: LEVOTHYROXINE 112MCG TABLET (0.112MG) PO SCH (05:24)
[2019-03-15] MEDS: IMIPENEM/CILASTATIN 500 MG in D5W MINI-BAG PLUS 100 ML IV SCH ×3 (05:24→17:54)
[2019-03-15 05:53] LABS: BASO % 0.3 % (0.0-1.0); EOS # 0.2 10^3/uL (0.0-0.50); EOS % 6.5 % (0.0-3.0); HEMATOCRIT 29.4 % (36.0-47.0); HEMOGLOBIN 9.4 g/dl (12.0-15.5); LYMPH # 0.6 10^3/uL (1.5-4.5); LYMPH % 16.2 % (24.0-44.0); MEAN CORPUSCULAR HEMOGLOBIN 27.6 pg (27.0-33.0); MEAN CORPUSCULAR VOLUME 86.2 fl (80.0-96.0); MONO # 0.5 10^3/uL (0.0-0.8); MONO % 12.8 % (0.0-5.0); NEUTROPHILS # 2.3 10^3/uL (1.8-7.7); NEUTROPHILS % 63.9 % (36.0-66.0); PLATELET COUNT, AUTOMATED 319 10^3/uL (150-450); RED BLOOD COUNT 3.41 10^6/uL (4.00-5.40); WHITE BLOOD COUNT 3.5 10^3/uL (4.0-10.0)
[2019-03-15 06:10] LABS: BLOOD UREA NITROGEN 6 MG/DL (7-18); CALCIUM LEVEL 8.3 MG/DL (8.5-10.1); CARBON DIOXIDE LEVEL 32 MEQ/L (21-32); CHLORIDE LEVEL 98 MEQ/L (98-107); CREATININE FOR GFR 0.55 MG/DL (0.55-1.30); GLOMERULAR FILTRATION RATE > 60.0 (>58); GLUCOSE, FASTING 101 MG/DL (70-100); SODIUM LEVEL 136 MEQ/L (136-145)
[2019-03-15] MEDS: OMEPRAZOLE 20 MG CAP PO SCH (08:43)
[2019-03-15] MEDS: LORATADINE 10 MG TAB PO SCH (08:43)
[2019-03-15] MEDS: FUROSEMIDE 20 MG TAB PO SCH (08:44)
[2019-03-15] MEDS: MIRALAX *UNIT DOSE* 17GM PACKET PO SCH ×2 (08:44→21:00)
[2019-03-15] MEDS: DOCUSATE SODIUM 100 MG CAP PO SCH ×2 (08:44→21:31)
[2019-03-15] MEDS: buPROPion **XL** TABLET 150MG (WELLBUTRIN XL) PO SCH (08:44)
[2019-03-15] MEDS: NYSTATIN 100,000 UNITS/GM TOPICAL PWD 15 GM TOP SCH ×2 (08:45→21:53)
[2019-03-15] MEDS: LIDOCAINE 5% OINT 30 GM TOP SCH ×3 (08:45→21:33)
--- NOTE | 2019-03-15 09:32 | IPNPDOC ---
Subjective Date Seen The patient was seen on 03/15/19. Subjective Chief Complaint/HPI dyspnea, pleural effusion Constitutional: Denies: Chills, Fever, Night Sweats Pulmonary: Reports: Dyspnea, Cough Cardiovascular: Denies: Chest Pain, Palpitations, Orthopnea, Edema, Lt Headedness Gastrointestinal: Denies: Nausea, Vomiting, Abdominal Pain, Diarrhea, Constipation Genitourinary: Denies: Dysuria, Frequency, Incontinence, Retention Objective Physical Examination General Exam: Positive: Alert, Cooperative, No Acute Distress Eye Exam: Positive: Conjunctiva & lids normal ENT Exam: Positive: Mucous membr. moist/pink Chest Exam: Negative: Diminished (crackles at L base) Heart Exam: Positive: Rate Normal, Normal S1, Normal S2 Abdomen Exam: Positive: Normal bowel sounds, Soft; Negative: Tenderness Extremity Exam: Negative: Edema (No LE edema, + LUW edema extending into the shoulder, L breast and axilla) Skin Exam: Positive: Other skin issue (significant swelling c/w lymphedema involving left arm; cobblestone changes in skin near breast, also noted over back left side. very firm, no ulcerations or vesicles. open area at top of left breast, near axillary crease with skin breakdown noted. in area approx 4- [id number]. not actively draining.) Neuro Exam: Positive: Normal Speech Psych Exam: Positive: Mood NL A-FIB/CHADSVASC A-FIB History Current/History of A-Fib/PAF?: No Current Oral Anticoagulant The: No Assessment /Plan Problems (1) Pleural effusion, left Status: Acute Response to Treatment: Stable Discussed With: Nurse, Patient Problem Specific Plan: Monitor Clinically Problem Text: 03/15/19: planned repeat thoracentesis this am 03/14/19 no sufficiently skilled provider available until 03/15/19 to re-attempt draining effusion. 03/13/19 the effusion may contribute to sense of dyspnea due to shunting associated with compression of underlying lung, despite demonstration of adequate sats, too high to qualify for oxygen. 03/12/19: Patient had thoracentesis 03/09/2019. The patient is scheduled again today for a thoracentesis. Mild to moderate pleural fluid is visualized. While preparing for the thoracentesis procedure the patient could not maintain upright positioning for the procedure for an appropriate period of time and declined the procedure. Procedure may be performed at a later time if desired. Patient states she is "very SOB" if s O2 1-2 NC (although has not qualified for home O2). Plan to discuss case c Pulm vs TS; although I doubt symptoms are related to pleural effusion. 03/09/19 pleural fluid c - aerobic culture, cw exudative . 03/11/19 CT chest: 1. Moderate size left pleural effusion with volume loss and consolidation in the left lung, likely due to compressive atelectasis, without significant change from the prior exam. 2. No pneumothorax. 3. Probable lymphadenopathy, but assessment limited by the lack of contrast. 4. Small to moderate size pericardial effusion, unchanged. Electronically signed by: Paul Sanchez On 03/11/2019 07:27:12 AM DD: PAUL SANCHEZ MD 03/11/1943 DT: MARIAMA 03/11/19726 DS: PRINCE 03/11/19726 [~ rep ct labl] (2) Positive blood culture Status: Acute Problem Text: 03/15/19: spoke with lab: remains +, trying to speciate the bacterium, however, they're having some difficulty which means it's likely atypical. will repeat bl. cxs today. Wound cx + for 2 types of staph. Lab reporting Gram positive Rods on gram stain and no growth so far. started on imipenem and vanc pending definitive result. since she has corynebacterium and staph in surface wound culture(no surprise) t he BC may represent contaminant. have consulted Dr. Valdez for access help since her current IV is tenuous. she eventually will need Port but with this questionable blood culture, the port should wait. (3) Metastatic breast cancer Status: Chronic Problem Specific Plan: Monitor Clinically Problem Text: 03/15/19: patient anxious to get to chemotx appt tomorrow. Advised against this due to + bl cx. 03/13 skin changes suspicious for lymphatic spread of cancer. Patient reports skin biopsy done by her plastic surgery confirmed skin involvement. RW on admission spoke with Onc who plans to review records and meet with the pt. (4) Lymphedema of left upper extremity Status: Chronic Response to Treatment: Stable Discussed With: Nurse, Patient Problem Specific Plan: Monitor Clinically Problem Text: 03/15: It is wrapped again so she must be tolerating it different tension on the wrap. 03/14: patient removed wrap, too uncomfortable for her. Wrapped, improved swelling. Culture of axilla obtained, unable to fully visualize due amount of swelling-doubt secondary cellulitis at this point (5) Left upper extremity deep vein thrombosis Status: Chronic Response to Treatment: Stable Problem Specific Plan: Monitor Clinically Problem Text: resume lovenox unless thoracentesis can be attempted today. Chronic Lovenox. (6) Left-sided chest wall pain Status: Acute Response to Treatment: Uncontrolled Problem Text: pain stems from complications from breast reconstructive surgery and cancer which looks to be spreading in lymphatics based on skin appearance. at present her pain is adequately controlled on morphine 15mg q4 hours as needed, methadone 10mg tid and topical lidocaine. Plan/VTE VTE Prophylaxis Ordered?: Yes Plan Anticipated Discharge: Home Family Medicine Attending Note: I saw and examined Ms. Brunner, discussed with OCTAVIANO Land. Agree with her note as documented. I saw her the patient was very frustrated and threatening to leave AGAINST MEDICAL ADVICE. She did have an tolerated her thoracentesis this afternoon. She would like to attend a chemotherapy session in [place] tomorrow. I patiently explained to her that she can't have a chemotherapy she has a bacteremia. She did not seem to understand this, but I believe it was more she did not want understand this. She feels that chemotherapy may save her life and she desperately wants to remain alive so she can parent her children. She did not seem to understand the gravity that a systemic infection might pose to her, and we never did get through this disconnect and understanding. At her request, I spoke to the on-call fellow for the oncology group in [place]. I explained that she is bacteremic and that I did not recommend chemotherapy. The fellow agreed and said he would message her primary oncologist, Dr. Garcia, and see if there are office would be willing to move her appointment from Friday to Friday (I think is very reasonable we could have her discharged on appropriate antibiotics by Friday). In the end I believe, but I'm not certain, she will stay for continued treatment. 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2, Mean Corpuscular Hemoglobin 27.6, Mean Corpuscular Hemoglobin Concent 32.0, Red Cell Distribution Width 16.9H, Platelet Count 319, Neutrophils (%) (Auto) 63.9, Lymphocytes (%) (Auto) 16.2L, Monocytes (%) (Auto) 12.8H, Eosinophils (%) (Auto) 6.5H, Basophils (%) (Auto) 0.3, Neutrophils # (Auto) 2.3, Lymphocytes # (Auto) 0.6L, Monocytes # (Auto) 0.5, Eosinophils # (Auto) 0.2, Basophils # (Auto) 0.0, Nucleated Red Blood Cells % (auto) 0.0, Anion Gap 6L, Blood Urea Nitrogen 6L, Creatinine 0.55, Sodium Level 136, Potassium Level 4.0, Chloride Level 98, Carbon Dioxide Level 32, Calcium Level 8.3L CBC/BMP Laboratory Tests 03/14/19 15:05 03/15/19 05:27 Red Blood Count 3.41 L, Mean Corpuscular Volume 86.2, Mean Corpuscular Hemoglobin 27.6, Mean Corpuscular Hemoglobin Concent 32.0, Red Cell Distribution Width 16.9 H, Neutrophils (%) (Auto) 63.9, Lymphocytes (%) (Auto) 16.2 L, Monocytes (%) (Auto) 12.8 H, Eosinophils (%) (Auto) 6.5 H, Basophils (%) (Auto) 0.3, Neutrophils # (Auto) 2.3, Lymphocytes # (Auto) 0.6 L, Monocytes # (Auto) 0.5, Eosinophils # (Auto) 0.2, Basophils # (Auto) 0.0, Calcium Level 8.3 L Microbiology Microbiology 03/11/19 Blood Culture - Preliminary, Resulted No Growth after 72 hours. All specime... 03/11/19 Blood Culture - Preliminary, Resulted 03/12/19 Gram Stain - Final, Complete 03/12/19 Wound Culture - Final, Complete Staphylococcus Aureus Staphylococcus Sp Coag Neg Corynebacterium Species Savanna Sequeira March 15, 2019 9:32 am Jose Calix MD March 15, 2019 11:13 pm
[2019-03-15] MEDS: ENOXAPARIN 80 MG/0.8 ML SYRINGE (J1650) SC SCH ×2 (11:00→21:48)
[2019-03-15 11:09] LABS: C REACTIVE PROTEIN QUANTITATIV 9.16 MG/DL (0.00-0.30)
[2019-03-15] MEDS ORDERED: LORazepam 2 MG/ML VIAL (J2060) IV ONE (15:45)
[2019-03-15] MEDS ORDERED: NAPROXEN 250 MG TAB PO PRN (18:15)
--- NOTE | 2019-03-15 18:18 | REP ---
Post-biopsy chest two views History: Thoracentesis Comparison: 03/14/2019 An increase in interstitial markings is present in the right lung. Patchy density is present in the left lower lobe consistent with atelectasis or infiltrate. A small left pleural effusion is present that is decreased compared to the previous study. There is no definite pneumothorax. The cardiac silhouette is enlarged. The pulmonary vasculature is prominent. A central line is present in the region of the right atrium. Impression: 1. There is an increase in interstitial markings in the right lung unchanged compared to the previous study. 2. Left lower lobe atelectasis or infiltrate. 3. Small left pleural effusion decreased compared to the previous study. There is no definite pneumothorax. Electronically Signed by Leo Perlata MD 03/15/2019 06:09 P
--- NOTE | 2019-03-15 19:20 | REP ---
Ultrasound-guided thoracentesis The procedure was performed by DAISHA Dill, under the personal supervision of Dr. Malone. The risks and benefits of the procedure were explained to the patient and informed consent was obtained both verbally and written. Directly prior to the start of the procedure, a formal timeout was completed in the exam room. Pleural fluid in the left] lung zone was localized using ultrasound guidance. The skin was prepped and draped in a sterile fashion. 4 ml] 1% lidocaine was used as a local anesthetic. Using ultrasound guidance, an 8-Swiss multiphase side-hole catheter was inserted and advanced into the fluid. 605 ml of dark yellow colored fluid was withdrawn and sent to the lab for analysis. The patient tolerated the procedure well and there were no immediate complications. Reviewed by DAISHA Wood 03/15/2019 05:40 P Electronically Signed by Charles Malone MD 03/15/2019 07:11 P
[2019-03-15] MEDS: DULoxetine 30 MG CAP (CYMBALTA) PO SCH (21:29)
[2019-03-15] MEDS: clonazePAM 1 MG TAB PO SCH (21:30)
[2019-03-16] MEDS: IMIPENEM/CILASTATIN 500 MG in D5W MINI-BAG PLUS 100 ML IV SCH ×3 (01:01→13:53)
[2019-03-16] MEDS: VANCOMYCIN HCL 750 MG, VIAL MATE ADAPTER 1 EACH in D5W 250 ML IV SCH ×2 (03:41→10:52)
[2019-03-16 04:00] VITALS: BP 108/71
[2019-03-16] MEDS: MORPHINE 10MG/0.5ML ORAL CONCENTRATE SOLUTION U/D SL PRN ×3 (04:06→13:35)
[2019-03-16] MEDS: VANCOMYCIN HCL 500 MG in D5W MINI-BAG PLUS 100 ML IV SCH ×2 (05:07→12:41)
[2019-03-16] MEDS: SODIUM CHLORIDE 0.9% INJ 10 ML SYR IV SCH ×2 (06:00→15:00)
[2019-03-16] MEDS: LEVOTHYROXINE 112MCG TABLET (0.112MG) PO SCH (06:02)
[2019-03-16 08:00] VITALS: BP 130/72
[2019-03-16 08:31] LABS: BASO % 0.5 % (0.0-1.0); EOS # 0.2 10^3/uL (0.0-0.50); EOS % 5.2 % (0.0-3.0); HEMATOCRIT 29.6 % (36.0-47.0); HEMOGLOBIN 9.3 g/dl (12.0-15.5); LYMPH # 0.8 10^3/uL (1.5-4.5); LYMPH % 19.8 % (24.0-44.0); MEAN CORPUSCULAR HEMOGLOBIN 28.1 pg (27.0-33.0); MEAN CORPUSCULAR HGB CONC 31.4 g/dl (32.0-36.5); MEAN CORPUSCULAR VOLUME 89.4 fl (80.0-96.0); MONO # 0.4 10^3/uL (0.0-0.8); MONO % 11.2 % (0.0-5.0); NEUTROPHILS # 2.4 10^3/uL (1.8-7.7); PLATELET COUNT, AUTOMATED 300 10^3/uL (150-450); RED BLOOD COUNT 3.31 10^6/uL (4.00-5.40); WHITE BLOOD COUNT 3.8 10^3/uL (4.0-10.0)
--- NOTE | 2019-03-16 08:47 | IPNPDOC ---
Subjective Date Seen The patient was seen on 03/16/19. Subjective Chief Complaint/HPI Patient reports breathing to be better then yesterday. She still feels SOB, but improved. She states she is very frustrated about missing her chemo tx today Constitutional: Denies: Chills, Fever Pulmonary: Reports: Dyspnea; Denies: Cough Gastrointestinal: Denies: Nausea, Vomiting, Abdominal Pain Psych: Reports: Mood Normal Objective Physical Examination General Exam: Positive: Alert, Cooperative, No Acute Distress Eye Exam: Positive: Conjunctiva & lids normal ENT Exam: Positive: Mucous membr. moist/pink Chest Exam: Negative: Diminished (crackles at L base) Heart Exam: Positive: Rate Normal, Normal S1, Normal S2 Abdomen Exam: Positive: Normal bowel sounds, Soft; Negative: Tenderness Extremity Exam: Negative: Edema (No LE edema, + LUW edema extending into the shoulder, L breast and axilla) Skin Exam: Positive: Other skin issue (significant swelling c/w lymphedema involving left arm; cobblestone changes in skin near breast, also noted over ba ck left side. very firm, no ulcerations or vesicles. open area at top of left breast, near axillary crease with skin breakdown noted. in area approx 4- [id number]. not actively draining.) Neuro Exam: Positive: Normal Speech Psych Exam: Positive: Mood NL A-FIB/CHADSVASC A-FIB History Current/History of A-Fib/PAF?: No Current Oral Anticoagulant The: No Assessment /Plan Problems (1) Pleural effusion, left Status: Acute Response to Treatment: Stable Discussed With: Nurse, Patient Problem Specific Plan: Monitor Clinically Problem Text: 03/16/19: S/P thoracentesis. Patient reports to be feeling better. Repeat X-ray-I will consult with attending 03/15/19: planned repeat thoracentesis this am 03/14/19 no sufficiently skilled provider available until 03/15/19 to re-attempt draining effusion. 03/13/19 the effusion may contribute to sense of dyspnea due to shunting associated with compression of underlying lung, despite demonstration of adequate sats, too high to qualify for oxygen. 03/12/19: Patient had thoracentesis 03/09/2019. The patient is scheduled again today for a thoracentesis. Mild to moderate pleural fluid is visualized. While preparing for the thoracentesis procedure the patient could not maintain upright positioning for the procedure for an appropriate period of time and declined the procedure. Procedure may be performed at a later time if desired. Patient states she is "very SOB" if s O2 1-2 NC (although has not qualified for home O2). Plan to discuss case c Pulm vs TS; although I doubt symptoms are related to pleural effusion. 03/09/19 pleural fluid c - aerobic culture, cw exudative . 03/11/19 CT chest: 1. Moderate size left pleural effusion with volume loss and consolidation in the left lung, likely due to compressive atelectasis, without significant change from the prior exam. 2. No pneumothorax. 3. Probable lymphadenopathy, but assessment limited by the lack of contrast. 4. Small to moderate size pericardial effusion, unchanged. Electronically signed by: Paul Sanchez On 03/11/2019 07:27:12 AM DD: PAUL SANCHEZ MD 03/11/19 0641 DT: MARIAMA 03/11/19726 DS: PRINCE 03/11/19726 [~ rep ct labl] (2) Positive blood culture Status: Acute Problem Text: 03/16/19: BC pending 03/15/19: spoke with lab: remains +, trying to speciate the bacterium, however, they're having some difficulty which means it's likely atypical. will repeat bl. cxs today. Wound cx + for 2 types of staph. Lab reporting Gram positive Rods on gram stain and no growth so far. started on imipenem and vanc pending definitive result. since she has corynebacterium and staph in surface wound culture(no surprise) the BC may represent contaminant. have consulted Dr. Valdez for access help since her current IV is tenuous. she eventually will need Port but with this questionable blood culture, the port should wait. (3) Metastatic breast cancer Status: Chronic Problem Specific Plan: Monitor Clinically Problem Text: 03/15/19: patient anxious to get to chemotx appt tomorrow. Advised against this due to + bl cx. 03/13 skin changes suspicious for lymphatic spread of cancer. Patient reports skin biopsy done by her plastic surgery confirmed skin involvement. RW on admission spoke with Onc who plans to review records and meet with the pt. (4) Lymphedema of left upper extremity Status: Chronic Response to Treatment: Stable Discussed With: Nurse, Patient Problem Specific Plan: Monitor Clinically Problem Text: 03/15: It is wrapped again so she must be tolerating it different tension on the wrap. 03/14: patient removed wrap, too uncomfortable for her. Wrapped, improved swelling. Culture of axilla obtained, unable to fully visualize due amount of swelling-doubt secondary cellulitis at this point (5) Left upper extremity deep vein thrombosis Status: Chronic Response to Treatment: Stable Problem Specific Plan: Monitor Clinically Problem Text: resume lovenox unless thoracentesis can be attempted today. Chronic Lovenox. (6) Left-sided chest wall pain Status: Acute Response to Treatment: Uncontrolled Problem Text: pain stems from complications from breast reconstructive surgery and cancer which looks to be spreading in lymphatics based on skin appearance. at present her pain is adequately controlled on morphine 15mg q4 hours as needed, methadone 10mg tid and topical lidocaine. Plan/VTE VTE Prophylaxis Ordered?: Yes (Lovenox ) Plan Anticipated Discharge: Home Family Medicine Attending Note: I saw and examined Ms. Brunner, discussed with Cristhian Pickering DNP. Agree with her note as documented. The patient was later discharged today. Please see my discharge summary for full details. 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, Fishbone Vital Signs/I&O Vital Signs Date Time Temp Pulse Resp B/P (MAP) Pulse Ox O2 Delivery O2 Flow Rate FiO2 03/16/19 04:40 16 03/16/19 04:20 2.0 03/16/19 04:00 97.6 97 108/71 (83) 97 03/11/19 11:30 Nasal Cannula I&O- Last 24 Hours up to 6 AM 03/16/19 06:00 Intake Total 1920 ml Output Total 1100 ml Balance 820 ml Laboratory Data 24H LABS Laboratory Tests 2 03/15/19 09:55: Vancomycin Level Trough 16.5 03/15/19 10:44: 03/16/19 01:32: Bedside Glucose (Misc Panel) 106H 03/16/19 07:59: Immature Granulocyte % (Auto) 0.3, White Blood Count 3.8L, Red Blood Count 3.31L, Hemoglobin 9.3L, Hematocrit 29.6L, Mean Corpuscular Volume 89.4, Mean Corpuscular Hemoglobin 28.1, Mean Corpuscular Hemoglobin Concent 31.4L, Red Cell Distribution Width 16.7H, Platelet Count 300, Neutrophils (%) (Auto) 63.0, Lymphocytes (%) (Auto) 19.8L, Monocytes (%) (Auto) 11.2H, Eosinophils (%) (Auto) 5.2H, Basophils (%) (Auto) 0.5, Neutrophils # (Auto) 2.4, Lymphocytes # (Auto) 0.8L, Monocytes # (Auto) 0.4, Eosinophils # (Auto) 0.2, Basophils # (Auto) 0.0, Nucleated Red Blood Cells % (auto) 0.0 CBC/BMP Laboratory Tests 03/16/19 07:59 Red Blood Count 3.31 L, Mean Corpuscular Volume 89.4, Mean Corpuscular Hemoglobin 28.1, Mean Corpuscular Hemoglobin Concent 31.4 L, Red Cell Distribution Width 16.7 H, Neutrophils (%) (Auto) 63.0, Lymphocytes (%) (Auto) 19.8 L, Monocytes (%) (Auto) 11.2 H, Eosinophils (%) (Auto) 5.2 H, Basophils (%) (Auto) 0.5, Neutrophils # (Auto) 2.4, Lymphocytes # (Auto) 0.8 L, Monocytes # (Auto) 0.4, Eosinophils # (Auto) 0.2, Basophils # (Auto) 0.0 Microbiology Microbiology 03/15/19 Blood Culture, Received Pending 03/15/19 Blood Culture, Received Pending 03/11/19 Blood Culture - Final, Complete NO GROWTH AFTER 5 DAYS 03/11/19 Blood Culture - Preliminary, Resulted 03/12/19 Gram Stain - Final, Complete 03/12/19 Wound Culture - Final, Complete Staphylococcus Aureus Staphylococcus Sp Coag Neg Corynebacterium Species CRISTHIAN PICKERING March 16, 2019 8:47 am Jose Calix MD March 16, 2019 10:53 pm
[2019-03-16 08:50] LABS: BLOOD UREA NITROGEN 6 MG/DL (7-18); CALCIUM LEVEL 8.2 MG/DL (8.5-10.1); CARBON DIOXIDE LEVEL 36 MEQ/L (21-32); CHLORIDE LEVEL 98 MEQ/L (98-107); CREATININE FOR GFR 0.48 MG/DL (0.55-1.30); GLOMERULAR FILTRATION RATE > 60.0 (>58); GLUCOSE, FASTING 85 MG/DL (70-100); POTASSIUM SERUM 4.3 MEQ/L (3.5-5.1); SODIUM LEVEL 138 MEQ/L (136-145)
[2019-03-16] MEDS: buPROPion **XL** TABLET 150MG (WELLBUTRIN XL) PO SCH (09:27)
[2019-03-16] MEDS: FUROSEMIDE 20 MG TAB PO SCH (09:27)
[2019-03-16] MEDS: NYSTATIN 100,000 UNITS/GM TOPICAL PWD 15 GM TOP SCH (09:27)
[2019-03-16] MEDS: LORATADINE 10 MG TAB PO SCH (09:27)
[2019-03-16] MEDS: OMEPRAZOLE 20 MG CAP PO SCH (09:27)
[2019-03-16] MEDS: LIDOCAINE 5% OINT 30 GM TOP SCH ×2 (09:28→16:15)
[2019-03-16] MEDS: DOCUSATE SODIUM 100 MG CAP PO SCH (09:28)
[2019-03-16] MEDS: MIRALAX *UNIT DOSE* 17GM PACKET PO SCH (09:28)
[2019-03-16] MEDS: METHADONE 10 MG TAB (S0109) PO PRN (10:10)
--- NOTE | 2019-03-16 10:38 | REP ---
Portable chest, 10:18 a.m., single AP view, the patient is upright: Comparison is 03/15/2019. There are diffuse bilateral alveolar and interstitial infiltrates that have significantly progressed. There is a left pleural effusion that has progressed. The Cardiac size is mildly enlarged, unchanged. There is a right IJ central venous catheter with the tip in the right atrium, unchanged. There are surgical clips in the left axilla, unchanged. Impression: Increasing bilateral infiltrates and increasing left pleural effusion. Electronically Signed by Franck Garzon MD 03/16/2019 10:30 A
[2019-03-16] MEDS: ENOXAPARIN 80 MG/0.8 ML SYRINGE (J1650) SC SCH (10:51)
[2019-03-16 12:00] VITALS: BP 140/79
--- NOTE | 2019-03-16 14:58 | PHACANCOPD ---
PHARMACY VANCOMYCIN DOSING Pt Demographics Demographics Patient Age:38 , Weight:84.500 , Gender: female Adjusted Body Weight Events Past 24 Hours Events Past 24 Hours: NO: Dialysis, Diuretic Therapy, Change in CrCl, Fever, Elevation in WBC, Pending Diagnostics, Pending Procedures, Other Vancomycin Vancomycin indication: SEPSIS Vancomycin Target Ranges: 15-20 mcg/ml Vancomycin Load Y/N: Yes Load Dose Date Time Vancomycin Load Dose: 1750 Date: 03/13/19 Time: 1600 Vancomycin Dose Date: 03/14/19. Current Vancomycin Dose: [1250MG Q8H] Intermittent Dosing?: No Labs Labs Vital Signs Label Value Date Time Patient Temperature 96.4 degrees F 03/16/19 1200 Temperature Source Temporal 03/16/19 1200 Item Value Date Time White Blood Count 3.2 10^3/uL L 03/14/19 0654 White Blood Count 3.5 10^3/uL L 03/15/19 0527 Creatinine 0.55 MG/DL 03/15/19 0527 Creatinine 0.48 MG/DL L 03/16/19 0759 C-Reactive Protein, Quantitative 9.16 MG/DL H 03/15/19 0527 Creatinine 0.66 MG/DL 03/14/19 1505 Micro Microbiology 03/15/19 Blood Culture - Preliminary, Resulted No growth after 24 hours . All specim... 03/15/19 Blood Culture - Preliminary, Resulted No growth after 24 hours . All specim... 03/11/19 Blood Culture - Final, Complete NO GROWTH AFTER 5 DAYS 03/11/19 Blood Culture - Final, Complete Corynebacterium Sp. Not Jk 03/12/19 Gram Stain - Final, Complete 03/12/19 Wound Culture - Final, Complete Staphylococcus Aureus Staphylococcus Sp Coag Neg Corynebacterium Species Creatinine Clearance Date:03/14/19. Creatinine Clearance: [143]. Assessment and Plan Maintaining Current Dose?: Yes Reason for dose change: No Dose Change Pharmacist Note Pharmacist Note Date: 03/16/19. Pharmacist note: Patient's trough yesterday came back at 16.5. She is afebrile, with an elevated CRP. She has metastatic breast cancer and was admitted with pleural effusion and lymphedema of left upper extremity. Today is day 4 of empiric treatment with Vancomycin and Primaxin. Her wound grew staph aureus, staph coag neg and corynebacterium. We will continue her on Vancomycin 1250mg q8h for now with a repeat trough tomorrow. PT HAS NO HISTORY OF VANCOMYCIN AT [facility]. PT ALSO RECEIVING PRIMAXIN 500MG Q6H. GAVE PT LOADING DOSE OF 1750MG IV VANCO @ 1600 ON 03/13/19 FOLLOWED BY MAINTENANCE DOSAGE OF 1250MG Q8H STARTING AT 00. THEN ON 03/14/19 PT RECEIVED 750MG DOSE @0900 BUT DID NOT RECEIVE 500MG DOSE UNTIL 1200 DUE TO BEING OFF FLOOR FOR PROCEDURE. A RESULT TROUGH CAME BACK HIGH 3 HOURS LATER AT 22.6 @1505. I AM KEEPING THE DOSE THE SAME BECAUSE I BELIEVE THE TROUGH WAS ONLY HIGH DUE TO THE DELAYED 500MG DOSE. I HELD THE 1500 DOSE AND RESTARTED THE 1250MG Q8H REGIMEN AT 1900. I HAVE SCHEDULED TROUGH FOR TOMORROW AT 1000. I WILL CONTINUE TO MONITOR PATIENT AND ADJUST DOSE NEEDED. TISH JOHNS PHARMACY March 16, 2019 14:58
[2019-03-16 16:00] VITALS: BP 138/78
[2019-03-16] MEDS ORDERED: MORPHINE 10 MG/ML 1ML VIAL (J2270) IV ONE (16:00)
[2019-03-16] MEDS ORDERED: METHADONE 10 MG TAB (S0109) PO ONE (16:00)
[2019-03-16] MEDS ORDERED: METH10TA2 PO (17:55)
[2019-03-16] MEDS ORDERED: KEFL500C17 PO (17:56)
[2019-03-16] MEDS ORDERED: DOXY100C PO (18:18)
[2019-03-16] MEDS ORDERED: METHADONE 10 MG TAB (S0109) PO SCH (21:00)
--- NOTE | 2019-03-16 23:21 | DS.PDOC ---
Discharge Summary General Date of Admission March 11, 2019 at 10:49 Date of Discharge 03/16/19 Primary Care Physician: Justin Joe MD Attending Physician: Jose Calix MD Specialist/Consultants Involve: Evelyn Thompson MD Specialist/Consultants Involve Dr. Valdez for vascular access Discharge Summary ADMITTING DIAGNOSES: 1. Left pleural effusion. 2. Left arm pain secondary to lymphedema. 3. Left upper extremity DVT. 4. Metastatic breast cancer with spread to the mediastinum, axillary, and iliac lymph nodes. 5. Hypothyroidism. DISCHARGE DIAGNOSES: 1. Left pleural effusion, recurrent. 2. Blood cultures positive for corynebacteria. 3. Metastatic breast cancer with spread to the mediastinum, axillary, and iliac lymph nodes. 4. Left upper extremity lymphedema. 5. Left upper extremity DVT. 6. Left chest wall pain. 7. Hypothyroidism. 8. Anemia, probably inflammatory/chronic disease. PROCEDURES PERFORMED DURING STAY: Vascular access with triple-lumen catheter, left thoracentesis 2. ADMISSION HISTORY: Ms. Brunner presented to [facility] two days after she left before her treating team felt she was ready with recurrent dyspnea and left arm pain. Please see the admission history and physical for the remaining details. HOSPITAL COURSE: Ms. Brunner was found to have a recurrent left pleural effusion this was treated with the thoracentesis. Unfortunately it reaccumulated and she had a repeat thoracentesis. It then was noted to begin to reaccumulated again before her discharge. This will be a recurrent issue for her and she should address this with her oncologist in [place]. While here there is also significant concern that she might have a bacteremia. Blood cultures were noted to be positive at 48 hours but speciation was not possible. This was very frustrating to the patient as she did not want to stay in the hospital any longer for IV antibiotics. She did reluctantly remain in the hospital until it was determined that the positive blood culture was corynebacteria; this was only in 1 bottle. It should be noted that a wound culture from her axillary area also noted corynebacteria as well as coagulase-negative staphylococci and methicillin sensitive staph aureus. It is not clear whether the corynebacteria was a contaminant, but is not safe to assume it's not pathogenic in her case because of her significant immunocompromise and the fact that she is planning on un dergoing another chemotherapy regimen as soon as possible. I consulted infectious disease who recommended oral Keflex as well as oral doxycycline. This combination should help control the MSSA coag-negative staph and the corynebacteria. She had continued and ongoing pain while here. We did try topic al lidocaine gel, but this did not make significant difference. The only thing that seemed to help was increasing her methadone from 10mg three times a day to . She was scheduled to start a new round of chemotherapy on the day of discharge, but obviously she was still in the hospital and that was not possible. I did speak to the on-call physician for her oncologist, Dr. Garcia, the day before discharge and they were going to work on coordinating an appointment for her around Friday (03/19). DISCHARGE CONDITION: Guarded. FOLLOW-UP: As well as following up with Dr. Garcia, she should follow up with Perez Tadeo PA-C. She was instructed to call the office for follow appointment. DIET: As tolerated. ACTIVITY: As tolerated. DISCHARGE MEDICATIONS: Please see below. ALLERGIES: Please see below. LABORATORY DATA: Please see below. IMAGING: Left venous Doppler ultrasound, multiple chest x-rays, CT of the chest 2 DISCHARGE INSTRUCTIONS: 1. Call Dr. Garcia's office tomorrow morning for hospital follow-up visit. 2.: Ms. Joe's office tomorrow morning for hospital follow-up visit. ITEMS TO FOLLOWUP ON ON OUTPATIENT: 1. Order for lymphedema glove and gauntlet were given to the patient while in the hospital. TIME SPENT ON DISCHARGE: Greater than 25 minutes. Vital Signs/I&Os Vital Signs Date Time Temp Pulse Resp B/P (MAP) Pulse Ox O2 Delivery O2 Flow Rate FiO2 03/16/19 16:15 20 99 2.0 03/16/19 16:00 97.8 91 138/78 (98) 03/11/19 11:30 Nasal Cannula I&O- Last 24 Hours up to 6 AM 03/16/19 06:00 Intake Total 1920 ml Output Total 1100 ml Balance 820 ml Laboratory Data Labs 24H Laboratory Tests 2 03/16/19 01:32: Bedside Glucose (Misc Panel) 106H 03/16/19 07:59: Immature Granulocyte % (Auto) 0.3, White Blood Count 3.8L, Red Blood Count 3.31L, Hemoglobin 9.3L, Hematocrit 29.6L, Mean Corpuscular Volume 89.4, Mean Corpuscular Hemoglobin 28.1, Mean Corpuscular Hemoglobin Concent 31.4L, Red Cell Distribution Width 16.7H, Platelet Count 300, Neutrophils (%) (Auto) 63.0, Lymphocytes (%) (Auto) 19.8L, Monocytes (%) (Auto) 11.2H, Eosinophils (%) (Auto) 5.2H, Basophils (%) (Auto) 0.5, Neutrophils # (Auto) 2.4, Lymphocytes # (Auto) 0.8L, Monocytes # (Auto) 0.4, Eosinophils # (Auto) 0.2, Basophils # (Auto) 0.0, Nucleated Red Blood Cells % (auto) 0.0, Anion Gap 4L, Glomerular Filtration Rate > 60.0, Blood Urea Nitrogen 6L, Creatinine 0.48L, Sodium Level 138, Potassium Level 4.3, Chloride Level 98, Carbon Dioxide Level 36H, Calcium Level 8.2L CBC/BMP Laboratory Tests 03/16/19 07:59 Red Blood Count 3.31 L, Mean Corpuscular Volume 89.4, Mean Corpuscular Hemoglobin 28.1, Mean Corpuscular Hemoglobin Concent 31.4 L, Red Cell Distribution Width 16.7 H, Neutrophils (%) (Auto) 63.0, Lymphocytes (%) (Auto) 19.8 L, Monocytes (%) (Auto) 11.2 H, Eosinophils (%) (Auto) 5.2 H, Basophils (%) (Auto) 0.5, Neutrophils # (Auto) 2.4, Lymphocytes # (Auto) 0.8 L, Monocytes # (Auto) 0.4, Eosinophils # (Auto) 0.2, Basophils # (Auto) 0.0, Calcium Level 8.2 L FSBS Laboratory Tests Test 03/16/19 01:32 Range/Units Bedside Glucose (Misc Panel) 106 70-105 MG/DL Microbiology Microbiology 03/15/19 Blood Culture - Preliminary, Resulted No growth after 24 hours . All specim... 03/15/19 Blood Culture - Preliminary, Resulted No growth after 24 hours . All specim... 03/11/19 Blood Culture - Final, Complete NO GROWTH AFTER 5 DAYS 03/11/19 Blood Culture - Final, Complete Corynebacterium Sp. Not Jk 03/12/19 Gram Stain - Final, Complete 03/12/19 Wound Culture - Final, Complete Staphylococcus Aureus Staphylococcus Sp Coag Neg Corynebacterium Species Discharge Medications Scheduled Bupropion HCl (Bupropion Xl) 300 Mg Tab.er.24h, 300 MG PO DAILY, (Reported) Cephalexin (Keflex) 500 Mg Capsule, 500 MG PO TID Clonazepam (Clonazepam) 1 Mg Tab, 1 MG PO QHS, (Reported) Doxycycline Hyclate (Doxycycline Hyclate) 100 Mg Capsule, 100 MG PO BID Duloxetine Hcl (Duloxetine HCl) 60 Mg Cap, 60 MG PO QHS, (Reported) Enoxaparin Sodium (Enoxaparin Sodium) 80 Mg/0.8 Ml Syringe, 80 MG SC Q12H, (Reported) Furosemide (Furosemide) 20 Mg Tablet, 20 MG PO DAILY, (Reported) Levothyroxine Sodium (Levothyroxine Sodium) 112 Mcg Tab, 112 MCG PO DAILY, (Reported) Lisdexamfetamine Dimesylate (Vyvanse) 40 Mg Capsule, 40 MG PO DAILY, (Reported) Loratadine (Loratadine) 10 Mg Tablet, 10 MG PO DAILY, (Reported) Omeprazole (Omeprazole) 40 Mg Capsule.dr, 40 MG PO DAILY, (Reported) Valacyclovir HCl (Valacyclovir) 1,000 Mg Tablet, 1,000 MG PO TID, (Reported) Zolpidem Tartrate (Ambien) 10 Mg Tab, 10 MG PO QHS, (Reported) Scheduled PRN Cyclobenzaprine HCl (Cyclobenzaprine HCl) 10 Mg Tablet, 10 MG PO TID PRN for MUSCLE SPASMS, (Reported) Methadone HCl (Methadone HCl) 10 Mg Tablet, 10 MG PO TID PRN for PAIN may adjust to 15mg in the Am, 15mg in the afternoon, and 10mg at bedtime Morphine Sulfate (Morphine Sulfate) 15 Mg Tablet, 15 MG PO Q4H PRN for PAIN, (Reported) Allergies Coded Allergies: No Known Allergies (Unverified , 03/11/19) Jose Calix MD March 16, 2019 5:56 pm
[2019-03-17] MEDS ORDERED: METHADONE 5 MG TAB (S0109) PO SCH (09:00)
--- NOTE | 2019-03-17 21:37 | CR ---
DATE OF CONSULTATION: 03/16/2019 Asked to consult by Dr. Calix for evaluation of positive blood culture with Corynebacterium and axillary culture with methicillin-sensitive Staphylococcus aureus (MSSA): Bacterium and staph coag negative. Carmela is a 38-year-old female with a history of metastatic left breast cancer who was admitted on March 08 with complaints of increasing shortness of breath. The patient had a large pleural effusion which was drained 650 mL of exudative fluid was sent. No cytology was ordered. Acid-fast bacillus (AFB) and fungal cultures are pending. The patient refused to stay and left the hospital against advice. On March 11, she came back complaining of worsening left arm pain, worsening shortness of breath. She had another 600 mL of pleural effusion removed. A wound culture from her axillary left axilla with culture positive for MSSA, staph coag negative and Corynebacterium. She had low grade fevers. She was started on broad-spectrum antibiotics. The patient has a history of metastatic breast cancer status post bilateral mastectomies last year complicated by multiple infections, especially of the left breast with complications of her filler, left arm lymphedema, left arm deep vein thrombosis (DVT) diagnosed in December 2018 for which she is taking Lovenox. A PET scan that was done January 2019 showed extensive extrathoracic chest wall uptake especially in the left axilla, trapezius, increased uptake in the mediastinal and hilar, and right subclavian adenopathy, retroperitoneal adenopathy. The patient is undergoing chemotherapy and will be starting immunotherapy. Today the patient states that her shortness of breath has improved but she wants to have home oxygen. She wants to go home adamantly tonight to be with her kids. She has two kidneys that are teenagers. She does not want to send one more day in the hospital. She complains of significant edema in her left arm as well as pain in her left breast. PAST MEDICAL HISTORY: Past medical history significant for metastatic left breast cancer status post bilateral mastectomy, chemotherapy, radiation with PET scan showing extensive recurrence with mediastinal hilar adenopathy, retroperitoneal and localized breast and chest wall involvement. History of DVT of left arm on Lovenox. She is followed up at the lymphedema clinic in physical therapy at [facility], hypothyroidism, depressive disorder and insomnia. SOCIAL HISTORY: She is a former smoker. She drinks socially. Denies drug use. She is . She lives with her . She has two kidneys. MEDICATIONS: - methadone 15 mg by mouth twice a day - morphine as needed - Naprosyn 500 mg by mouth mg - MiraLax 1 packet by mouth twice a day - vancomycin 1 gram intravenous (IV) every 8 hours - 500 mg IV every 6 hours - Colace 100 mg by mouth twice a day - Aquaphor to left breast daily - zolpidem 10 mg by mouth at bedtime as needed - clonazepam 1 mg by mouth at bedtime - duloxetine 60 mg by mouth at bedtime - Tylenol as needed - cyclobenzaprine 10 mg by mouth daily as needed - bupropion 300 mg by mouth daily - furosemide 20 mg by mouth daily - loratadine 10 mg by mouth daily - omeprazole 40 mg by mouth daily - levothyroxine 112 mcg daily ALLERGIES: No known drug allergies. LABORATORY DATA: White count of 3.8, hemoglobin 9.3, hematocrit 29.6, platelet 363%, 10 neutrophils, 20% lymphocytes, 11% monocytes. Her white count on admission was 2.3 with 54% neutrophils, 22% lymphocytes. Sodium 138, potassium 4.3, chloride 93, bicarbonate 36, BUN 6, creatinine 0.48, glucose 85. Calcium 8.2. Procalcitonin 0.09. Vancomycin trough 16.5. Wound culture positive for MSSA. Staphylococcus coag negative Corynebacterium from the axilla. Blood culture 1 out of 2 on 03/11/2019 had Corynebacterium species and on 03/15/2019 had no growth after 24 hours. PHYSICAL EXAMINATION: On physical exam she is a bald female in no acute distress. She has a large surgical scar of the scalp, well healed. She does not have any hair. Oropharynx: Dry mucosa. Heart: Normal S1, S2. No murmurs, rubs or gallops. Lungs: Diminished breath sounds at the bases but she has good air entry. Abdomen: Soft, nontender. No hepatosplenomegaly. Extremities: +1 pitting edema. Skin: Has tattoos on her leg. Breast: Bilateral surgical scar of left breast very indurated with an open lesion, ulceration on the upper aspect of the breast measuring about 4 x 2 cm. This is the site of previous biopsy done by plastic surgery that has not healed. Axillary drainage. Minimal left arm severe lymphedema and lymphedema of face with tenderness, redness all the way to the shoulder into the breast. IMPRESSION: This is a 38-year-old unfortunate female with metastatic breast cancer that underwent bilateral mastectomies, reconstructive surgery complicated by multiple infections related to a plastic surgery. Currently is admitted with lymphedema and worsening pleural effusion. Her shortness of breath has improved with the removal of some of the pleural fluid. I suspect this is all metastatic. There is no fluid. No pleural fluid was sent for cytology. Left arm erythema could all be related to her DVT and lymphedema not necessarily to infection but since culture from the open lesion has grown methicillin-sensitive Staphylococcus aureus (MSSA) I would recommend treating it with Keflex. There is also heavy growth of Corynebacterium and staphylococcus coag negative and that could be treated with doxycycline. PLAN: There is no indication for the patient to stay in the hospital. She is not bacteremic. Corynebacterium in one out of four blood cultures is most likely a contaminant. She does not have an Kqlvle-V-Eezh. Central line was placed during this hospitalization after cultures were ordered. Discontinue vancomycin intravenous (IV) and imipenem. Switch her to by mouth Keflex 500 mg by mouth four times a day with doxycycline 100 mg by mouth twice a day. I agree with discharging the patient home. The patient's is requesting home oxygen. She will need to have an oxygen documentation of less than 90% to be able to do that. She understands this could not be arranged tonight. The case has been discussed Dr. Calix.
== END 2019-03-16 19:30 | disposition home health service (06) | DRG 143 ==
LOC: M ED 05:27 → M ED INP 10:49 → M PCU 12:08
PROVIDERS: ADMIT Family Medicine; ATTEND Family Medicine
PROC: 05HM33Z Insertion of Infusion Device into Right Internal Jugular Vein, Percutaneous Approach (ICD-10-PCS; principal; 2019-03-14)
DX: J90 Pleural effusion, not elsewhere classified (principal); C78.1 Secondary malignant neoplasm of mediastinum; C77.3 Secondary and unspecified malignant neoplasm of axilla and upper limb lymph nodes; C50.919 Malignant neoplasm of unspecified site of unspecified female breast; E03.9 Hypothyroidism, unspecified; D63.8 Anemia in other chronic diseases classified elsewhere; C77.5 Secondary and unspecified malignant neoplasm of intrapelvic lymph nodes; Z79.899 Other long term (current) drug therapy; I89.0 Lymphedema, not elsewhere classified; Z87.891 Personal history of nicotine dependence; Z90.11 Acquired absence of right breast and nipple; Z90.12 Acquired absence of left breast and nipple

== ENCOUNTER 2019-03-25 19:52 | Emergency (ER) | payer OTHER ==
[~2019-03-25] VITALS: Ht 172.7 cm; Wt 82.7 kg
[~2019-03-25 19:52] MED LIST changes: +DOXY100C PO; +KEFL500C17 PO
[2019-03-25 19:53] VITALS: BP 185/83
[2019-03-25 21:25] LABS: BASO % 0.3 % (0.0-1.0); EOS # 0.2 10^3/uL (0.0-0.50); EOS % 4.7 % (0.0-3.0); HEMATOCRIT 28.8 % (36.0-47.0); HEMOGLOBIN 9.1 g/dl (12.0-15.5); LYMPH # 0.4 10^3/uL (1.5-4.5); LYMPH % 13.8 % (24.0-44.0); MEAN CORPUSCULAR HEMOGLOBIN 27.8 pg (27.0-33.0); MEAN CORPUSCULAR HGB CONC 31.6 g/dl (32.0-36.5); MEAN CORPUSCULAR VOLUME 88.1 fl (80.0-96.0); MONO # 0.2 10^3/uL (0.0-0.8); MONO % 4.7 % (0.0-5.0); NEUTROPHILS # 2.4 10^3/uL (1.8-7.7); NEUTROPHILS % 76.2 % (36.0-66.0); PLATELET COUNT, AUTOMATED 348 10^3/uL (150-450); RED BLOOD COUNT 3.27 10^6/uL (4.00-5.40); WHITE BLOOD COUNT 3.2 10^3/uL (4.0-10.0)
[2019-03-25 21:49] LABS: ALBUMIN 2.7 GM/DL (3.2-5.2); ALT/SGPT 24 U/L (12-78); BILIRUBIN,DIRECT 0.1 MG/DL (0.0-0.2); BILIRUBIN,TOTAL 0.4 MG/DL (0.2-1.0); BLOOD UREA NITROGEN 11 MG/DL (7-18); CALCIUM LEVEL 8.1 MG/DL (8.5-10.1); CARBON DIOXIDE LEVEL 29 MEQ/L (21-32); CHLORIDE LEVEL 102 MEQ/L (98-107); CREATININE FOR GFR 0.57 MG/DL (0.55-1.30); GLOMERULAR FILTRATION RATE > 60.0 (>58); GLUCOSE, FASTING 107 MG/DL (70-100); POTASSIUM SERUM 4.2 MEQ/L (3.5-5.1); SODIUM LEVEL 137 MEQ/L (136-145); TOTAL PROTEIN 6.5 GM/DL (6.4-8.2)
--- NOTE | 2019-03-25 22:01 | REP ---
Clinical: Shortness of breath. Technique: Axial noncontrast images from the thoracic inlet to the upper abdomen with coronal and sagittal re-formations. Comparison: 03/11/2019. Findings: Moderate partially loculated left pleural effusion with fluid extending into the major fissure along with atelectasis and small left basilar/lingular areas of consolidation. Comparison to prior examination suggests a mild improvement to these findings. Mild new right-sided atelectasis is appreciated along with element of pulmonary vascular congestion/interstitial edema. The heart is stable and include a small pericardial effusion. Thoracic aorta without aneurysm. No pneumothorax. Mediastinal and hilar adenopathy cannot be excluded. Subcutaneous edema and infiltration involving the visualized left upper extremity is again noted. Osseous structures demonstrate degenerative changes without focal abnormality. Evidence for prior mammoplasty. Impression: 1. Moderate partially loculated left pleural effusion along with left-sided atelectasis and scattered basilar consolidations which may be slightly improved when compared to prior examination. 2. Minimal right-sided atelectasis now noted. 3. Chronic pulmonary vascular congestion suggested. 4. Asymmetric subcutaneous edema involving the visualized left upper extremity. Electronically Signed by Vinicio Villa MD 03/25/2019 09:53 P
--- NOTE | 2019-03-27 07:41 | ED PDOC ---
Post-Departure Follow-Up felicita uriarte faxed formal report of ct chest for fu Lalo Zheng MD March 27, 2019 07:41
== END 2019-03-25 22:46 | disposition home or self-care (01) ==
LOC: M ED 19:52
DX: L08.9 Local infection of the skin and subcutaneous tissue, unspecified (principal); T81.41XA Infection following a procedure, superficial incisional surgical site, initial encounter; Y83.8 Other surgical procedures as the cause of abnormal reaction of the patient, or of later complication, without mention of misadventure at the time of the procedure; G89.28 Other chronic postprocedural pain; J90 Pleural effusion, not elsewhere classified; I97.2 Postmastectomy lymphedema syndrome; R06.02 Shortness of breath; C50.919 Malignant neoplasm of unspecified site of unspecified female breast; Z90.13 Acquired absence of bilateral breasts and nipples; I10 Essential (primary) hypertension; E03.9 Hypothyroidism, unspecified; Z86.718 Personal history of other venous thrombosis and embolism; Z79.899 Other long term (current) drug therapy; Z79.2 Long term (current) use of antibiotics

== ENCOUNTER 2019-04-07 08:55 | Emergency (ER) | payer OTHER ==
[~2019-04-07] VITALS: Ht 172.7 cm; Wt 76.8 kg
[2019-04-07] MEDS ORDERED: NS 1,000 ML IV SCH (09:00)
[2019-04-07] MEDS ORDERED: OXYC10TA3 PO (09:16)
[2019-04-07 10:04] LABS: BASO % 0.6 % (0.0-1.0); EOS % 0.6 % (0.0-3.0); HEMOGLOBIN 10.4 g/dl (12.0-15.5); LYMPH # 0.6 10^3/uL (1.5-4.5); LYMPH % 11.3 % (24.0-44.0); MEAN CORPUSCULAR HEMOGLOBIN 25.9 pg (27.0-33.0); MEAN CORPUSCULAR HGB CONC 31.5 g/dl (32.0-36.5); MEAN CORPUSCULAR VOLUME 82.3 fl (80.0-96.0); MONO # 0.4 10^3/uL (0.0-0.8); MONO % 7.6 % (0.0-5.0); NEUTROPHILS # 4.1 10^3/uL (1.8-7.7); NEUTROPHILS % 79.7 % (36.0-66.0); PLATELET COUNT, AUTOMATED 469 10^3/uL (150-450); RED BLOOD COUNT 4.01 10^6/uL (4.00-5.40); WHITE BLOOD COUNT 5.1 10^3/uL (4.0-10.0)
[2019-04-07] MEDS ORDERED: LORazepam 2 MG/ML VIAL (J2060) IV STA (10:05)
[2019-04-07] MEDS ORDERED: MORPHINE 4 MG/ML 1ML VIAL/SYRINGE (J2270) IV ONE (10:15)
[2019-04-07 10:17] LABS: INR 1.02; PROTHROMBIN TIME 13.5 SECONDS (12.1-14.4)
[2019-04-07 10:30] VITALS: BP 128/79
[2019-04-07 10:45] LABS: ALBUMIN 2.5 GM/DL (3.2-5.2); ALT/SGPT 17 U/L (12-78); BILIRUBIN,DIRECT < 0.1 MG/DL (0.0-0.2); BILIRUBIN,TOTAL 0.3 MG/DL (0.2-1.0); BLOOD UREA NITROGEN 13 MG/DL (7-18); CALCIUM LEVEL 9.3 MG/DL (8.5-10.1); CARBON DIOXIDE LEVEL 29 MEQ/L (21-32); CHLORIDE LEVEL 100 MEQ/L (98-107); CK-MB VALUE MASS < 1.0 NG/ML (<3.6); CPK CREATINE PHOSPHOKINASE 60 U/L (26-192); CREATININE FOR GFR 0.52 MG/DL (0.55-1.30); GLOMERULAR FILTRATION RATE > 60.0 (>58); GLUCOSE, FASTING 90 MG/DL (70-100); MB/CK RELATIVE INDEX 1.67 (< OR =4); NT-PRO BNP 272 PG/ML (<125); POTASSIUM SERUM 3.7 MEQ/L (3.5-5.1); SODIUM LEVEL 138 MEQ/L (136-145); TOTAL PROTEIN 7.1 GM/DL (6.4-8.2); TROPONIN I < 0.02 NG/ML (< 0.10)
--- NOTE | 2019-04-07 10:48 | REP ---
CHEST, PORTABLE: AP portable view of the chest is performed. Parenchymal opacities in the right base are unchanged as is the consolidative opacity in the left lung base. Heart and mediastinal structures are grossly unchanged. Right arm PICC line is again seen with the tip in the superior vena cava. IMPRESSION: Stable exam. Electronically Signed by Franck Bobby MD 04/08/2019 08:58 A
[2019-04-07] MEDS ORDERED: LIDOCAINE 1% MDV 20ML VIAL As Ordered ONE (10:53)
[2019-04-07 11:27] LABS: LDH LACTATE DEHYDROGENASE 416 U/L (84-246)
[2019-04-07 11:34] LABS: PH BODY FLUID 7.403 UNITS (NOT ESTABLISHED); SOURCE, BODY FLUID pH PLEURAL
[2019-04-07 11:39] LABS: APPEARANCE, BODY FLUID HAZY (CLEAR); PLEURAL FL COLOR AMBER (COLORLESS)
--- NOTE | 2019-04-07 12:00 | REP ---
PORTABLE CHEST: AP portable view of the chest is performed. Patient had left thoracentesis. There is decreased left pleural fluid. There are bibasilar parenchymal opacities again noted. There is no pneumothorax. Right PICC line is again noted. IMPRESSION: No pneumothorax status post left thoracentesis. Electronically Signed by Franck Bobby MD 04/08/2019 09:00 A
[2019-04-07 12:07] LABS: LDH, BODY FLUID 782 U/L (NOT ESTABLISHED); SOURCE, BODY FLUID GLUCOSE PLEURAL; SOURCE, BODY FLUID LDH PLEURAL; SOURCE, BODY FLUID TOT PROTEIN PLEURAL; TOTAL PROTEIN, BODY FLUID 3.9 G/DL (NOT ESTABLISHED)
[2019-04-07] MEDS ORDERED: PERCOCET 5MG/325MG TAB PO ONE (12:15)
[2019-04-07 12:24] LABS: SOURCE, BODY FLUID PLEURAL
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
--- NOTE | 2019-04-07 15:51 | RO ---
DATE OF PROCEDURE: 04/07/2019 INDICATION: Left pleural effusion. PREPROCEDURE DIAGNOSIS: Malignant pleural effusion. POSTPROCEDURE DIAGNOSIS: Malignant pleural effusion. ATTENDING PHYSICIAN: Dr. Lau CONSENT: Consent was obtained from the patient prior to the procedure. Indication, risks and benefits were explained at length. PROCEDURE SUMMARY: A time-out was performed and the chest x-ray was reviewed. Using ultrasound, the appropriate side was confirmed and marked. Full sterile technique was maintained throughout the procedure including a surgical cap, mask, eyewear, sterile gown, and sterile gloves. The patient was given premedication with morphine 4 mg IV and Ativan 1 mg IV. During the procedure, she was also given additional 2 mg IV morphine for pain control. The patient was prepped and draped in a sterile manner using chlorhexidine scrub after appropriate level was confirmed using ultrasound and marked. 1% lidocaine was used to anesthetize the skin, subcutaneous tissue, the superior aspect of the rib, periosteum and the parietal pleura. A fine-needle was then introduced over the superior aspect of the rib to locate the pleural fluid. Serosanguineous colored fluid was aspirated. A scalpel blade was used to ana laura the skin surface at the insertion site. A thoracentesis needle was then introduced through the skin incision into the pleural space using negative aspiration pressure. The thoracentesis catheter was then threaded without difficulty. Approximately 850 mL of serosanguineous, cloudy fluid was removed without difficulty. The catheter was then removed. No immediate complications were noted during the procedure. A postprocedure chest x-ray showed improvement in the pleural effusion and no pneumothorax. The fluid will be sent for studies. Estimated blood loss is less than 5 mL. MTDD
--- NOTE | 2019-04-07 20:01 | ECGEPIP ---
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
== END 2019-04-07 13:19 | disposition home or self-care (01) ==
LOC: M ED 08:55 → EDBD 08:55 → M ED 13:19
DX: J90 Pleural effusion, not elsewhere classified (principal); G89.29 Other chronic pain; F33.9 Major depressive disorder, recurrent, unspecified; J45.909 Unspecified asthma, uncomplicated; C34.91 Malignant neoplasm of unspecified part of right bronchus or lung; E03.9 Hypothyroidism, unspecified; Z79.899 Other long term (current) drug therapy; Z79.890 Hormone replacement therapy; Z87.891 Personal history of nicotine dependence
CPT/HCPCS: 32554; 71045; 80048; 80076; 82550; 82553; 82945; 83605; 83615; 83880; 83986; 84157; 84443; 85025; 85610; 87040; 87070; 87075; 89051; 93005; 93041; 94760; 96374; 96375; 99285; J2060; J2270

== ENCOUNTER 2019-04-07 22:31 | Emergency (ER) | payer OTHER ==
[~2019-04-07] VITALS: Ht 172.7 cm; Wt 76.8 kg
[~2019-04-07 22:31] MED LIST changes: +OXYC10TA3 PO
[2019-04-07] MEDS ORDERED: ONDANSETRON 4MG/2ML VIAL (J2405) As Ordered ONE (22:57)
[2019-04-07] MEDS ORDERED: ONDANSETRON 4MG/2ML VIAL (J2405) IV ONE (23:00)
[2019-04-07] MEDS ORDERED: MORPHINE 10 MG/ML 1ML VIAL (J2270) IV ONE (23:00)
[2019-04-07] MEDS ORDERED: NS 1,000 ML IV SCH (23:00)
[2019-04-07 23:17] LABS: HEMATOCRIT 33.2 % (36.0-47.0); HEMOGLOBIN 10.4 g/dl (12.0-15.5); MEAN CORPUSCULAR HEMOGLOBIN 25.8 pg (27.0-33.0); MEAN CORPUSCULAR HGB CONC 31.3 g/dl (32.0-36.5); MEAN CORPUSCULAR VOLUME 82.4 fl (80.0-96.0); PLATELET COUNT, AUTOMATED 447 10^3/uL (150-450); RED BLOOD COUNT 4.03 10^6/uL (4.00-5.40); WHITE BLOOD COUNT 4.9 10^3/uL (4.0-10.0)
[2019-04-07 23:40] LABS: BLOOD UREA NITROGEN 15 MG/DL (7-18); CALCIUM LEVEL 8.7 MG/DL (8.5-10.1); CARBON DIOXIDE LEVEL 32 MEQ/L (21-32); CHLORIDE LEVEL 99 MEQ/L (98-107); CREATININE FOR GFR 0.47 MG/DL (0.55-1.30); GLOMERULAR FILTRATION RATE > 60.0 (>58); GLUCOSE, FASTING 98 MG/DL (70-100); POTASSIUM SERUM 4.4 MEQ/L (3.5-5.1); SODIUM LEVEL 138 MEQ/L (136-145)
[2019-04-08] MEDS ORDERED: MORPHINE 4 MG/ML 1ML VIAL/SYRINGE (J2270) IV ONE
[2019-04-08 00:32] VITALS: BP 143/99
--- NOTE | 2019-04-08 00:44 | REP ---
Clinical: Malignancy with chest pain. Technique: Portable upright view of the chest. Comparison: 04/01/2019. Findings: Large left lower lobe consolidation/mass with air bronchograms is appreciated along with bilateral mid to lower lobe infiltrates. Left effusion cannot be excluded. No pneumothorax. Skeletal structures are intact. Right-sided PICC line identified with tip in the SVC. Impression: Large left lower lobe consolidation/mass with air bronchograms along with bilateral mid to lower lobe atelectasis/infiltrates. Possible left effusion. Electronically Signed by Vinicio Villa MD 04/08/2019 12:35 A
--- NOTE | 2019-04-08 06:40 | ED PDOC ---
Post-Departure Follow-Up farzad uriarte faxed formal report of cxr for fu Lalo Zheng MD Apr 08, 2019 06:40
== END 2019-04-08 01:09 | disposition home or self-care (01) ==
LOC: M ED 22:31
DX: J90 Pleural effusion, not elsewhere classified (principal); G89.29 Other chronic pain; Z85.3 Personal history of malignant neoplasm of breast; Z79.899 Other long term (current) drug therapy; Z79.890 Hormone replacement therapy; F17.210 Nicotine dependence, cigarettes, uncomplicated
CPT/HCPCS: 71045; 80048; 85027; 96374; 96375; 96376; 99284; J2270; J2405

== ENCOUNTER 2019-04-08 09:56 | Emergency (ER) | payer OTHER ==
[2019-04-08] MEDS ORDERED: MORPHINE 4 MG/ML 1ML VIAL/SYRINGE (J2270) IV ONE (10:45)
[2019-04-08] MEDS ORDERED: SODIUM CHLORIDE 0.9% INJ 10 ML SYR IV PRN (11:30)
[2019-04-08 11:33] LABS: BASO % 0.6 % (0.0-1.0); EOS # 0.1 10^3/uL (0.0-0.50); HEMATOCRIT 32.7 % (36.0-47.0); HEMOGLOBIN 10.4 g/dl (12.0-15.5); LYMPH # 0.4 10^3/uL (1.5-4.5); LYMPH % 8.8 % (24.0-44.0); MEAN CORPUSCULAR HEMOGLOBIN 26.7 pg (27.0-33.0); MEAN CORPUSCULAR HGB CONC 31.8 g/dl (32.0-36.5); MEAN CORPUSCULAR VOLUME 84.1 fl (80.0-96.0); MONO # 0.2 10^3/uL (0.0-0.8); MONO % 3.6 % (0.0-5.0); NEUTROPHILS # 4.1 10^3/uL (1.8-7.7); NEUTROPHILS % 85.4 % (36.0-66.0); PLATELET COUNT, AUTOMATED 397 10^3/uL (150-450); RED BLOOD COUNT 3.89 10^6/uL (4.00-5.40); WHITE BLOOD COUNT 4.8 10^3/uL (4.0-10.0)
[2019-04-08 12:10] LABS: BLOOD UREA NITROGEN 15 MG/DL (7-18); CALCIUM LEVEL 8.5 MG/DL (8.5-10.1); CARBON DIOXIDE LEVEL 31 MEQ/L (21-32); CHLORIDE LEVEL 100 MEQ/L (98-107); CREATININE FOR GFR 0.43 MG/DL (0.55-1.30); GLOMERULAR FILTRATION RATE > 60.0 (>58); GLUCOSE, FASTING 106 MG/DL (70-100); POTASSIUM SERUM 4.4 MEQ/L (3.5-5.1); SODIUM LEVEL 138 MEQ/L (136-145)
[2019-04-08] MEDS ORDERED: ISOVUE-370 76% 100ML VIAL (Q9967) As Ordered ONE (12:22)
[2019-04-08] MEDS ORDERED: HYDROMORPHONE HCL 0.5 MG/ 0.5 ML SYRINGE (J1170 PER 1) IV ONE (12:45)
[2019-04-08] MEDS ORDERED: PERCOCET 5MG/325MG TAB PO ONE (13:45)
--- NOTE | 2019-04-08 13:56 | REP ---
CT ANGIOGRAM CHEST: TECHNIQUE: Axial contrast enhanced images from the thoracic inlet to the upper abdomen using 100 mL Isovue 370 intravenous contrast material with multiplanar reformations. There is no CT evidence of pulmonary embolism. There is no thoracic aortic aneurysm or dissection. The heart is not enlarged. There is mild diffuse mediastinal and hilar adenopathy. Edema and inflammation is seen in the left axillary region, present on the prior study of 03/25/2019. There is decreased amount of left pleural effusion with a small amount of inferior pleural fluid present. This has improved. There is dense patchy infiltrate in the inferior left lung which has increased since the prior study. Mild scattered fibroatelectatic changes are seen in the right lung. IMPRESSION: No evidence of pulmonary embolism. Mild diffuse adenopathy in the mediastinal and hilar regions. Stable left axillary edema and inflammation. Small amount of left pleural fluid inferiorly has improved since prior study. There is patchy infiltrate in the left lower lung which has increased since the prior exam. Electronically Signed by Franck Bobby MD 04/12/2019 01:46 P
[2019-04-08 14:52] VITALS: BP 124/70
--- NOTE | 2019-04-13 13:17 | ED PDOC ---
Post-Departure Follow-Up dr uriarte faxed formal report of cta chest for fu Lalo Zheng MD Apr 13, 2019 13:17
== END 2019-04-08 14:55 | disposition home or self-care (01) ==
LOC: EDBD 09:56 → M ED 09:56
DX: R06.00 Dyspnea, unspecified (principal); C50.919 Malignant neoplasm of unspecified site of unspecified female breast; J98.11 Atelectasis; Z79.899 Other long term (current) drug therapy
CPT/HCPCS: 71275; 80048; 85025; 93041; 94010; 94760; 96374; 96375; 99284; J1170; J2270; Q9967

== ENCOUNTER 2019-04-13 16:52 | Emergency (ER) | payer OTHER ==
[2019-04-13 18:21] LABS: BASO % 0.4 % (0.0-1.0); EOS # 0.1 10^3/uL (0.0-0.50); EOS % 1.5 % (0.0-3.0); HEMOGLOBIN 8.5 g/dl (12.0-15.5); LYMPH # 0.5 10^3/uL (1.5-4.5); LYMPH % 8.8 % (24.0-44.0); MEAN CORPUSCULAR HEMOGLOBIN 26.6 pg (27.0-33.0); MEAN CORPUSCULAR HGB CONC 31.5 g/dl (32.0-36.5); MEAN CORPUSCULAR VOLUME 84.6 fl (80.0-96.0); MONO # 0.2 10^3/uL (0.0-0.8); MONO % 4.2 % (0.0-5.0); NEUTROPHILS # 4.4 10^3/uL (1.8-7.7); NEUTROPHILS % 84.7 % (36.0-66.0); PLATELET COUNT, AUTOMATED 308 10^3/uL (150-450); RED BLOOD COUNT 3.19 10^6/uL (4.00-5.40); WHITE BLOOD COUNT 5.2 10^3/uL (4.0-10.0)
[2019-04-13] MEDS: MORPHINE 2 MG/ML 1ML SYRINGE (J2270) IV PRN ×2 (18:36→19:43)
[2019-04-13 18:41] LABS: BLOOD UREA NITROGEN 17 MG/DL (7-18); CALCIUM LEVEL 8.6 MG/DL (8.5-10.1); CARBON DIOXIDE LEVEL 30 MEQ/L (21-32); CHLORIDE LEVEL 101 MEQ/L (98-107); CREATININE FOR GFR 0.59 MG/DL (0.55-1.30); GLOMERULAR FILTRATION RATE > 60.0 (>58); GLUCOSE, FASTING 96 MG/DL (70-100); SODIUM LEVEL 136 MEQ/L (136-145)
--- NOTE | 2019-04-13 18:43 | REPVR ---
EXAM: CT Head Without Contrast EXAM DATE/TIME: 04/13/2019 6:15 PM CLINICAL HISTORY: 38 years old, female; Signs and symptoms; Other: Pupils; Patient HX: Breast CA; Additional info: Unequal pupils TECHNIQUE: Imaging protocol: Axial computed tomography images of the head without contrast. Radiation optimization: All CT scans at this facility use at least one of these dose optimization techniques: automated exposure control; mA and/or kV adjustment per patient size (includes targeted exams where dose is matched to clinical indication); or iterative reconstruction. COMPARISON: CT Head W/O FOLL BY WITH CONTR 07/09/2018 2:01 PM FINDINGS: Brain: Stable foci of encephalomalacia in the posterior frontal lobe and middle cranial fossa. Ventricles: Normal. No ventriculomegaly. Bones/joints: Status post right temporoparietal craniotomy with cranial prosthesis, stable. Sinuses: Visualized sinuses are unremarkable. No fluid levels. Mastoid air cells: Visualized mastoid air cells are well aerated. No mastoid effusion. Soft tissues: Unremarkable. IMPRESSION: No acute findings. No interval change. Electronically signed by: Stephen Mckinney On 04/13/2019 18:42:55 PM
[2019-04-13] MEDS ORDERED: PERCOCET 5MG/325MG TAB PO ONE (20:45)
[2019-04-13 21:37] VITALS: BP 110/68
== END 2019-04-13 21:42 | disposition short-term general hospital (02) ==
LOC: M ED 16:52
DX: T85.79XA Infection and inflammatory reaction due to other internal prosthetic devices, implants and grafts, initial encounter (principal); Y83.1 Surgical operation with implant of artificial internal device as the cause of abnormal reaction of the patient, or of later complication, without mention of misadventure at the time of the procedure; R23.8 Other skin changes; C50.012 Malignant neoplasm of nipple and areola, left female breast; Z90.13 Acquired absence of bilateral breasts and nipples; Z98.82 Breast implant status; Z92.3 Personal history of irradiation; I97.2 Postmastectomy lymphedema syndrome; E03.9 Hypothyroidism, unspecified; Z79.899 Other long term (current) drug therapy; Z87.891 Personal history of nicotine dependence; Z86.718 Personal history of other venous thrombosis and embolism
CPT/HCPCS: 70450; 80048; 85025; 96374; 96376; 99285; J2270

== ENCOUNTER 2019-06-03 14:49 | Inpatient (IN) | payer OTHER ==
[~2019-06-03] VITALS: Ht 172.7 cm; Wt 53.1 kg
[~2019-06-03 14:49] MED LIST changes: -DULO1CAP3 PO; +DULO1CAP6 PO
[2019-06-03] MEDS ORDERED: ONDANSETRON 4MG/2ML VIAL (J2405) IV ONE (15:30)
[2019-06-03] MEDS ORDERED: MORPHINE 4 MG/ML 1ML VIAL/SYRINGE (J2270) IV ONE (16:00)
[2019-06-03 16:02] LABS: BASO % 0.8 % (0.0-1.0); EOS # 0.1 10^3/uL (0.0-0.50); EOS % 1.1 % (0.0-3.0); HEMATOCRIT 34.6 % (36.0-47.0); HEMOGLOBIN 10.3 g/dl (12.0-15.5); LYMPH # 0.5 10^3/uL (1.5-4.5); LYMPH % 9.3 % (24.0-44.0); MEAN CORPUSCULAR HEMOGLOBIN 25.8 pg (27.0-33.0); MEAN CORPUSCULAR HGB CONC 29.8 g/dl (32.0-36.5); MEAN CORPUSCULAR VOLUME 86.7 fl (80.0-96.0); MONO # 0.4 10^3/uL (0.0-0.8); MONO % 7.4 % (0.0-5.0); NEUTROPHILS # 4.3 10^3/uL (1.8-7.7); NEUTROPHILS % 81.2 % (36.0-66.0); PLATELET COUNT, AUTOMATED 502 10^3/uL (150-450); RED BLOOD COUNT 3.99 10^6/uL (4.00-5.40); WHITE BLOOD COUNT 5.3 10^3/uL (4.0-10.0)
[2019-06-03 16:29] LABS: ALBUMIN 2.8 GM/DL (3.2-5.2); ALT/SGPT 12 U/L (12-78); BILIRUBIN,DIRECT < 0.1 MG/DL (0.0-0.2); BILIRUBIN,TOTAL 0.2 MG/DL (0.2-1.0); BLOOD UREA NITROGEN 7 MG/DL (7-18); CALCIUM LEVEL 9.4 MG/DL (8.5-10.1); CARBON DIOXIDE LEVEL 33 MEQ/L (21-32); CHLORIDE LEVEL 96 MEQ/L (98-107); CREATININE FOR GFR 0.44 MG/DL (0.55-1.30); GLOMERULAR FILTRATION RATE > 60.0 (>58); GLUCOSE, FASTING 90 MG/DL (70-100); LIPASE 42 U/L (73-393); POTASSIUM SERUM 4.6 MEQ/L (3.5-5.1); SODIUM LEVEL 135 MEQ/L (136-145); TOTAL PROTEIN 7.2 GM/DL (6.4-8.2)
[2019-06-03] MEDS ORDERED: MORPHINE 10 MG/ML 1ML VIAL (J2270) IV PRN (17:30)
--- NOTE | 2019-06-03 18:00 | REP ---
Clinical: Abdominal pain. Technique: Single supine view of the abdomen and pelvis. Findings: Bowel gas pattern is nonspecific and without obstruction or perforation. No organomegaly. No abnormal calcifications. Skeletal structures are intact. IUD identified. Impression: Nonspecific abdominal radiograph. Electronically Signed by Vinicio Villa MD 06/03/2019 05:53 P
[2019-06-03] MEDS ORDERED: ENOX80IN3 SC (18:17)
[2019-06-03] MEDS ORDERED: METH10TA2 PO (18:17)
--- NOTE | 2019-06-03 20:51 | HPEPDOC ---
General Date of Admission 06.03.19 Date of Service: Jun 03, 2019 Chief Complaint The patient is a 38-year-old female admitted with a reason for visit of Abd Pain. History of Present Illness 38f with hx of metastatic breast cancer s/p chemo, radiation, radical mastectomy, c/b inflammatory breast cancer and implant infection, presenting with intractable pain. Pt reports she has been working with palliative care and that her pain has been better controlled since starting methadone. She also reports taking oxycodone 10-30mg several times per day. She has pain in her abdomen, in her arm, and at several skin sites around her body. She has been nauseous but not vomiting. She has been in the process of transitioning to hospice however today her pain has been much worse and not improving with her h ome doses of pain meds. A full ROS was performed and negative except for above Home Medications Scheduled Bupropion HCl (Bupropion Xl) 300 Mg Tab.er.24h, 300 MG PO DAILY, (Reported) Clonazepam (Clonazepam) 1 Mg Tab, 1 MG PO QHS, (Reported) Duloxetine Hcl (Duloxetine HCl) 60 Mg Cap, 60 MG PO QHS, (Reported) Enoxaparin Sodium (Enoxaparin Sodium) 80 Mg/0.8 Ml Syringe, 80 MG SC Q12H, (Reported) Furosemide (Furosemide) 20 Mg Tablet, 20 MG PO DAILY, (Reported) Levothyroxine Sodium (Levothyroxine Sodium) 112 Mcg Tab, 112 MCG PO DAILY, (Reported) Lisdexamfetamine Dimesylate (Vyvanse) 40 Mg Capsule, 40 MG PO DAILY, (Reported) Omeprazole (Omeprazole) 40 Mg Capsule.dr, 40 MG PO DAILY, (Reported) Zolpidem Tartrate (Ambien) 10 Mg Tab, 10 MG PO QHS, (Reported) Scheduled PRN Methadone HCl (Methadone HCl) 10 Mg Tablet, 10 MG PO TID PRN for PAIN, ( Reported) Oxycodone HCl/Acetaminophen (Oxycodone-Acetaminophen 10-325) 1 Each Tablet, 1 TAB PO QID PRN for PAIN, (Reported) Allergies Coded Allergies: No Known Allergies (Unverified , 03/11/19) Past Medical History Medical History metastatic breast cancer, lymphedema, dvt Surgical History mastectomy, implant removal Family History Significant Family History: Noncontributory Social History * Smoker: Denies Alcohol: Denies Drugs: denies A-FIB/CHADSVASC A-FIB History Current/History of A-Fib/PAF?: No Current PO Anticoag Therapy: No Age/Risk Factor Scoring CHADSVASC: CHADSVASC Response (Comments) Value Age Risk Factor Age < 65 years old 0 Gender Risk Factor Female 1 Hx of CHF No 0 Hx of HTN No 0 Hx of Stroke/TIA/or VTE Yes 2 Hx of Diabetes No 0 Total 3 Treatment Treatment ordered: Other (lovenox) Other anticoagulant ordered: lovenox Physical Examination General Exam: Positive: Alert, Cooperative, Moderate Distress Eye Exam: Positive: PERRLA, Conjunctiva & lids normal, EOMI; Negative: Sclera icteric ENT Exam: Positive: Atraumatic, Mucous membr. moist/pink, Pharynx Normal Neck Exam: Positive: Lymphadenopathy Chest Exam: Positive: Clear to auscultation, Normal air movement Heart Exam: Positive: Rate Normal, Regular Rhythm, Normal S1, Normal S2; Negative: Murmurs, Rubs Abdomen Exam: Positive: Normal bowel sounds, Soft; Negative: Tenderness, Hepatospenomegaly Extremity Exam: Positive: Normal pulses, Swelling; Negative: Clubbing, Cyanosis, Edema Skin Exam: Positive: Lesion Neuro Exam: Positive: Normal Gait, Normal Speech, Cranial Nerves 3-12 NL, Reflexes 2+ Psych Exam: Positive: Mental status NL, Oriented x 3, Other (tearful) Other physical findings Indentation at previous site of left breast Vital Signs Vital Signs Date Time Temp Pulse Resp B/P (MAP) Pulse Ox O2 Delivery O2 Flow Rate FiO2 06/03/19 16:56 74 99 06/03/19 16:42 18 06/03/19 15:41 125/81 (96) 06/03/19 14:57 97.1 Laboratory Data Labs 24H Laboratory Tests 2 06/03/19 15:48: Immature Granulocyte % (Auto) 0.2, White Blood Count 5.3, Red Blood Count 3.99L, Hemoglobin 10.3L, Hematocrit 34.6L, Mean Corpuscular Volume 86.7, Mean Corpuscular Hemoglobin 25.8L, Mean Corpuscular Hemoglobin Concent 29.8L, Red Cell Distribution Width 20.3H, Platelet Count 502H, Neutrophils (%) (Auto) 81.2H, Lymphocytes (%) (Auto) 9.3L, Monocytes (%) (Auto) 7.4H, Eosinophils (%) (Auto) 1.1, Basophils (%) (Auto) 0.8, Neutrophils # (Auto) 4.3, Lymphocytes # (Auto) 0.5L, Monocytes # (Auto) 0.4, Eosinophils # (Auto) 0.1, Basophils # (Auto) 0.0, Nucleated Red Blood Cells % (auto) 0.0, Anion Gap 6L, Glomerular Filtration Rate > 60.0, Calcium Level 9.4, Aspartate Amino Transf (AST/SGOT) 20, Alanine Aminotransferase (ALT/SGPT) 12, Alkaline Phosphatase 142H, Total Bilirubin 0.2, Direct Bilirubin < 0.1, Total Protein 7.2, Albumin 2.8L, Albumin/Globulin Ratio 0.64L, Lipase 42L CBC/BMP Laboratory Tests 06/03/19 15:48 Red Blood Count 3.99 L, Mean Corpuscular Volume 86.7, Mean Corpuscular Hemoglobin 25.8 L, Mean Corpuscular Hemoglobin Concent 29.8 L, Red Cell Dist ribution Width 20.3 H, Neutrophils (%) (Auto) 81.2 H, Lymphocytes (%) (Auto) 9.3 L, Monocytes (%) (Auto) 7.4 H, Eosinophils (%) (Auto) 1.1, Basophils (%) (Auto) 0.8, Neutrophils # (Auto) 4.3, Lymphocytes # (Auto) 0.5 L, Monocytes # (Auto) 0.4, Eosinophils # (Auto) 0.1, Basophils # (Auto) 0.0 Assessment/Plan 38f with end stage metastatic breast cancer unable to relieve pain with home regimen there is some obscurity in what was and was not working for her at home as she was taking the methadone irregularly will continue the methadone for now at scheduled q8h pt had no relief with 4mg iv morphine the equivalent she was taking at home is up to 15mg iv morphine however since she was not always taking the 30mg of methadone I will start at 8mg of morphine for breakthrough will need palliative input in am low threshold to titrate up to achieve comfort pt is comfort measures only and dnr hospice is consulted will need to discuss if she wishes to continue other home meds ie lovenox, synthroid no evidence of bowel obstruction or ileus on KUB would consider check lfts if pt is willing Plan / VTE VTE Prophylaxis Ordered?: Yes NATALYA FLORES MD Jun 03, 2019 20:51
[2019-06-03] MEDS: MORPHINE 4 MG/ML 1ML VIAL/SYRINGE (J2270) IV PRN (20:57)
[2019-06-03] MEDS: ONDANSETRON 4MG/2ML VIAL (J2405) IV PRN (20:57)
[2019-06-03] MEDS: METHADONE 10 MG TAB (S0109) PO SCH (20:57)
[2019-06-03 22:09] VITALS: BP 113/74
[2019-06-03] MEDS: DULoxetine 30 MG CAP (CYMBALTA) PO SCH (22:59)
[2019-06-03] MEDS: zolPIDEM TARTRATE 5 MG TAB PO SCH (22:59)
[2019-06-03] MEDS: PANTOPRAZOLE 40MG TAB (PROTONIX) PO SCH (22:59)
[2019-06-03] MEDS: clonazePAM 1 MG TAB PO SCH (22:59)
[2019-06-03] MEDS: ENOXAPARIN 80 MG/0.8 ML SYRINGE (J1650) SC SCH (22:59)
[2019-06-04] MEDS: MORPHINE 4 MG/ML 1ML VIAL/SYRINGE (J2270) IV PRN ×4 (00:07→11:53)
[2019-06-04] MEDS: LEVOTHYROXINE 112MCG TABLET (0.112MG) PO SCH (05:21)
[2019-06-04 06:00] VITALS: BP 115/75
[2019-06-04] MEDS: buPROPion **XL** TABLET 150MG (WELLBUTRIN XL) PO SCH (08:54)
[2019-06-04] MEDS: METHADONE 10 MG TAB (S0109) PO SCH ×3 (08:55→20:48)
[2019-06-04] MEDS: FUROSEMIDE 20 MG TAB PO SCH (08:55)
[2019-06-04] MEDS: ENOXAPARIN 80 MG/0.8 ML SYRINGE (J1650) SC SCH ×3 (09:00→20:47)
[2019-06-04] MEDS: ONDANSETRON 4MG/2ML VIAL (J2405) IV PRN (11:06)
--- NOTE | 2019-06-04 11:31 | IPN ---
DATE: 06/04/2019 Patient with chronic pain related to metastatic breast cancer admitted because of inadequate pain control at home. She has been receiving care through the palliative care program and at this point is ready to transition to hospice. Her pain medications at home have included methadone 10 mg three times a day which she takes sometimes only twice a day, oxycodone 10/325 and sometimes she takes one to three of these every 4-6 hours as needed for pain, and also uses Klonopin 1 mg at bedtime, duloxetine 60 mg at bedtime, bupropion 300 mg daily, Vyvanse 40 mg daily, and levothyroxine at 12 mcg daily. She has metastatic disease and widespread involvement as evidenced by her PET scan. She has had skin manifestations of disease in her left axilla and back. She has significant impairment of her left arm functionality due to severe lymphedema. She was on Lovenox 80 mg twice a day at home. EXAMINATION: She is alert, cooperative and pleasant. The left arm is edematous. She has wounds in the axilla and on her back which are purple reddened color, weepy and protected with a dressing to avoid trauma and rubbing which triggers pain. She is status post left mastectomy and failed due to infection reconstructive surgery. ASSESSMENT: Patient with metastatic breast cancer with pain that is improved on her current regimen. Current regimen includes Lovenox 80 subcu every 12 hours, duloxetine 60 mg at bedtime, levothyroxine 12 mcg daily, methadone 10 mg three times a day, morphine sulfate 8 mg every 3 hours as needed pain, Klonopin 1 mg at bedtime, along with Zolpidem 10 mg of at bedtime. Morphine 8 mg given IV should be approximately comparable to 15 mg of oxycodone or slightly more at the same interval. So at discharge, we would recommend that she go to 20 mg of oxycodone for hospice purposes at every 4-hour intervals. She is asking about discharge. Will see how she does after breakfast with pain tolerability since meal tolerance limitation due to abdominal pain with feeding was part of why she was admitted. If she tolerates breakfast well, then we can consider actually sending her home with a variety of nutritional supplements and continued methadone at 10 mg three times a day and oxycodone 20 mg every 4-6 hours as needed for pain. Hospice consult has been initiated. PLAN: Hospice consult. Possible discharge on medications as outlined above. 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 No labs are ordered.
[2019-06-04] MEDS: oxyCODONE 5MG TAB PO PRN ×2 (16:47→20:48)
[2019-06-04] MEDS ORDERED: IBUPROFEN 400 MG TAB PO ONE (20:00)
[2019-06-04] MEDS: DULoxetine 30 MG CAP (CYMBALTA) PO SCH (20:47)
[2019-06-04] MEDS: clonazePAM 1 MG TAB PO SCH (20:47)
[2019-06-04] MEDS: zolPIDEM TARTRATE 5 MG TAB PO SCH (20:47)
[2019-06-04] MEDS: PANTOPRAZOLE 40MG TAB (PROTONIX) PO SCH (20:47)
[2019-06-04 20:55] VITALS: BP 119/83
[2019-06-04 22:00] VITALS: BP 119/83
[2019-06-05] MEDS: oxyCODONE 5MG TAB PO PRN ×4 (04:25→19:23)
[2019-06-05 06:00] VITALS: BP 120/83
[2019-06-05] MEDS: LEVOTHYROXINE 112MCG TABLET (0.112MG) PO SCH (06:18)
[2019-06-05] MEDS: MORPHINE 4 MG/ML 1ML VIAL/SYRINGE (J2270) IV PRN (06:19)
[2019-06-05] MEDS: ENOXAPARIN 80 MG/0.8 ML SYRINGE (J1650) SC SCH ×2 (08:56→21:08)
[2019-06-05] MEDS: buPROPion **XL** TABLET 150MG (WELLBUTRIN XL) PO SCH (08:57)
[2019-06-05] MEDS: FUROSEMIDE 20 MG TAB PO SCH (08:57)
[2019-06-05] MEDS: METHADONE 10 MG TAB (S0109) PO SCH ×3 (08:57→21:08)
--- NOTE | 2019-06-05 12:30 | IPNPDOC ---
Subjective Date Seen The patient was seen on 06/05/19. Subjective Chief Complaint/HPI patient reports improvement in pain control Eyes: Denies: Pain ENT: Reports: Head Aches (uses motrin with success) Gastrointestinal: Reports: Abdominal Pain (improving); Denies: Nausea Objective Physical Examination General Exam: Positive: Alert, Cooperative, Moderate Distress Eye Exam: Positive: Conjunctiva & lids normal, EOMI; Negative: PERRLA (right pupil larger than left), Sclera icteric ENT Exam: Positive: Atraumatic, Mucous membr. moist/pink, Pharynx Normal Neck Exam: Positive: Lymphadenopathy Heart Exam: Positive: Rate Normal, Regular Rhythm, Normal S1, Normal S2; Negative: Murmurs, Rubs Abdomen Exam: Positive: Soft; Negative: Tenderness, Hepatospenomegaly Extremity Exam: Positive: Swelling (left arm lymphedema); Negative: Clubbing, Cyanosis, Edema Skin Exam: Positive: Lesion (multiple lesions of metastatic breast ca left axilla, chest wall anterior and posterior.) Neuro Exam: Positive: Normal Gait, Normal Speech, Cranial Nerves 3-12 NL, Reflexes 2+ Psych Exam: Positive: Mental status NL, Oriented x 3, Other (tearful) Assessment /Plan Problems (1) Metastatic breast cancer Status: Chronic 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 (2) Breast cancer of upper-outer quadrant of left female breast Status: Acute Problem Text: with cutaneous and bony mets (3) Lymphedema of left upper extremity Status: Chronic Response to Treatment: Stable Plan/VTE VTE Prophylaxis Ordered?: Yes Plan Anticipated Discharge: Hospice Advance Directives: DNR, Comfort care VS, I&O, 24H, Fishbone Vital Signs/I&O Vital Signs Date Time Temp Pulse Resp B/P (MAP) Pulse Ox O2 Delivery O2 Flow Rate FiO2 06/05/19 10:00 16 06/05/19 06:00 98.3 91 120/83 (95) 99 2.0 I&O- Last 24 Hours up to 6 AM 06/05/19 06:00 Intake Total 1060 ml Output Total 0 ml Balance 1060 ml Darius Nayak MD Jun 05, 2019 12:30
[2019-06-05] MEDS: clonazePAM 1 MG TAB PO SCH (21:08)
[2019-06-05] MEDS: PANTOPRAZOLE 40MG TAB (PROTONIX) PO SCH (21:08)
[2019-06-05] MEDS: zolPIDEM TARTRATE 5 MG TAB PO SCH (21:08)
[2019-06-05] MEDS: DULoxetine 30 MG CAP (CYMBALTA) PO SCH (21:09)
[2019-06-06] MEDS: LEVOTHYROXINE 112MCG TABLET (0.112MG) PO SCH (05:49)
[2019-06-06] MEDS: oxyCODONE 5MG TAB PO PRN ×4 (05:49→18:18)
[2019-06-06] MEDS: IBUPROFEN 400 MG TAB PO PRN ×2 (08:04→15:04)
[2019-06-06] MEDS: clonazePAM 0.5 MG TAB PO PRN ×2 (08:04→15:02)
[2019-06-06] MEDS: METHADONE 10 MG TAB (S0109) PO SCH ×3 (08:05→21:59)
[2019-06-06] MEDS: FUROSEMIDE 20 MG TAB PO SCH (08:05)
[2019-06-06] MEDS: ENOXAPARIN 80 MG/0.8 ML SYRINGE (J1650) SC SCH (08:05)
[2019-06-06] MEDS: buPROPion **XL** TABLET 150MG (WELLBUTRIN XL) PO SCH (08:05)
[2019-06-06] MEDS: MORPHINE 4 MG/ML 1ML VIAL/SYRINGE (J2270) IV PRN (08:07)
[2019-06-06] MEDS: diphenhydrAMINE 50 MG CAP PO PRN (10:03)
[2019-06-06] MEDS: ONDANSETRON 4MG/2ML VIAL (J2405) IV PRN (10:03)
[2019-06-06] MEDS ORDERED: BISACODYL 10 MG SUPP PR PRN (11:30)
[2019-06-06] MEDS ORDERED: MORPHINE 4 MG/ML 1ML VIAL/SYRINGE (J2270) IV PRN (11:30)
[2019-06-06] MEDS ORDERED: DOCUSATE SODIUM 100 MG CAP PO PRN (11:30)
[2019-06-06] MEDS: ONDANSETRON 4 MG TAB (S0181) PO SCH ×2 (12:00→18:17)
--- NOTE | 2019-06-06 12:29 | IPN ---
DATE: 06/06/2019 SUBJECTIVE: Carmela's pain continues to be inadequately controlled with oral medications alone still requiring intravenous (IV) morphine. She is also still receiving IV ondansetron for nausea. The use of IV medications is not compatible with desire to get her admitted to hospice program. Breathing is not compromise. She is mostly troubled by abdominal discomfort which seems to be exacerbated by movement. 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 EXAMINATION: Today, there are no vital signs or laboratory testing. She is alert and conversant, clearly, not oversedated by her current meds. Still requiring IV morphine for adequate control. ASSESSMENT: Widely metastatic breast cancer involving skin and bone, significant abdominal pain, and significant overall pain related to advanced metastatic disease. 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 We will try to advance her narcotic regimen in two different ways, one is to shorten the interval with her oxycodone dose from 4-3 hours 20 mg every 3 hours, continue methadone at current dose, add Roxanol to be dosed first and then if not adequate for her pain relief, then we will provide morphine IV but a reduced dose from her current level. We will use Roxanol 20 mg given orally in hopes that we can obviate IV morphine use. Will substitute oral, routinely dosed ondansetron for the current as needed IV dose. Hopefully, this will enable to transition to purely oral medication program so that she can be discharge either home or to Hospice House.
[2019-06-06] MEDS: SENNA 8.6 MG TAB (SENOKOT) PO SCH ×2 (15:04→21:59)
[2019-06-06] MEDS: MIRALAX *UNIT DOSE* 17GM PACKET PO PRN (16:31)
[2019-06-06] MEDS ORDERED: RIVAROXABAN 20 MG TAB (XARELTO) PO SCH (18:00)
[2019-06-06] MEDS: PANTOPRAZOLE 40MG TAB (PROTONIX) PO SCH (21:59)
[2019-06-06] MEDS: clonazePAM 1 MG TAB PO SCH (21:59)
[2019-06-06] MEDS: zolPIDEM TARTRATE 5 MG TAB PO SCH (21:59)
[2019-06-06] MEDS: DULoxetine 30 MG CAP (CYMBALTA) PO SCH (21:59)
[2019-06-06] MEDS: MORPHINE 10MG/0.5ML ORAL CONCENTRATE SOLUTION U/D SL PRN (22:00)
[2019-06-07] MEDS: ONDANSETRON 4 MG TAB (S0181) PO SCH ×3 (00:12→12:06)
[2019-06-07] MEDS: oxyCODONE 5MG TAB PO PRN ×3 (00:13→12:07)
[2019-06-07] MEDS: LEVOTHYROXINE 112MCG TABLET (0.112MG) PO SCH (05:37)
[2019-06-07] MEDS: MORPHINE 10MG/0.5ML ORAL CONCENTRATE SOLUTION U/D SL PRN (05:43)
[2019-06-07] MEDS: FUROSEMIDE 20 MG TAB PO SCH (09:04)
[2019-06-07] MEDS: SENNA 8.6 MG TAB (SENOKOT) PO SCH (09:04)
[2019-06-07] MEDS: MIRALAX *UNIT DOSE* 17GM PACKET PO PRN (09:04)
[2019-06-07] MEDS: IBUPROFEN 400 MG TAB PO PRN (09:04)
[2019-06-07] MEDS: clonazePAM 0.5 MG TAB PO PRN (09:04)
[2019-06-07] MEDS: diphenhydrAMINE 50 MG CAP PO PRN (09:05)
[2019-06-07] MEDS: METHADONE 10 MG TAB (S0109) PO SCH (09:05)
[2019-06-07] MEDS: buPROPion **XL** TABLET 150MG (WELLBUTRIN XL) PO SCH (09:05)
[2019-06-07] MEDS ORDERED: MORP20SO3 PO (11:21)
[2019-06-07] MEDS ORDERED: LORA0.5T11 PO (11:21)
[2019-06-07] MEDS ORDERED: HYOS125TA PO (11:21)
[2019-06-07] MEDS ORDERED: OXYCO5TA PO (11:21)
[2019-06-07] MEDS ORDERED: METH10TA2 PO (11:21)
--- NOTE | 2019-06-07 12:42 | DSES ---
DATE OF ADMISSION: 06/03/2019 DATE OF DISCHARGE: PRIMARY CARE PROVIDER: DANY Tadeo ATTENDING PHYSICIAN: Reinaldo Reyes MD HISTORY OF PRESENT ILLNESS: This is a 38-year-old female with metastatic breast cancer who is status post chemotherapy, radiation and radical mastectomy, who presented to [facility] for worsening pain control. The patient was subsequently admitted to family medicine service. HOSPITAL COURSE: Medications were escalated, including adding IV morphine as needed pain control in consultation with palliative care and it was determined that the patient should be transitioned to hospice at this time due to her end stage metastatic breast cancer. The patient and family are agreeable and the patient remains on comfort measure status. The patient's medications have been transitioned to completely oral medications and her pain has been well tolerated over the last 24 to 36 hours and the patient is ready for transition to hospice as per her and family's request. PHYSICAL EXAMINATION: The patient is resting comfortably in her bed. Her brother is at her bedside. Neck is supple without lymphadenopathy. CARDIOVASCULAR: Heart regular rate and rhythm. She does have large arm swelling consistent with significant lymphedema, most likely post radiation and chemotherapy lymphedema from the breast cancer. ABDOMEN: Soft and nontender. EXTREMITIES: Bilateral lower extremities are without any edema. ASSESSMENT: 1. End stage metastatic breast cancer in a 38-year-old female. The patient will be transitioned to hospice house. They will evaluate the patient today. MEDICATIONS: - hyoscyamine sulfate 0.125 mg by mouth every 4 hours as needed for terminal secretions - diazepam 0.5 mg by mouth every 4 hours as needed for anxiety and agitation - methadone 10 mg by mouth three times a day - morphine sulfate 100 mg per 5 mL 0.25 to 1 mL by mouth every 2 hours as needed for pain or dyspnea - oxycodone 5 mg tablets 20 mg by mouth every 3 hours as needed for severe pain - bupropion 300 mg by mouth daily - duloxetine 60 mg - furosemide 20 mg by mouth daily - levothyroxine 112 mcg by mouth daily Diet is as tolerated. Activity is as tolerated. The patient is aware of the nature of her disease and is agreeable to admission to hospice house.
== END 2019-06-07 13:25 | disposition hospice, inpatient (51) | DRG 861 ==
LOC: M ED 14:49 → EDBD 14:49 → M ED INP 20:27 → M MS5PR 21:54
PROVIDERS: ADMIT Hospitalist; ATTEND Family Medicine
DX: G89.3 Neoplasm related pain (acute) (chronic) (principal); C79.2 Secondary malignant neoplasm of skin; C79.51 Secondary malignant neoplasm of bone; C50.412 Malignant neoplasm of upper-outer quadrant of left female breast; Z51.5 Encounter for palliative care; Z79.899 Other long term (current) drug therapy; Z66 Do not resuscitate